=== PATIENT | female | born 1970 | race Caucasian/White ===

== ENCOUNTER 2020-03-17 11:38 | Outpatient (REF) | payer OTHER, SELFPAY ==
[2020-03-17 12:14] LABS: COVID-19 Test Negative (Negative)
== END 2020-03-17 11:39 | disposition home or self-care (01) ==
LOC: HO.LAB 11:38
PROVIDERS: Visit Provider Internal Medicine
DX: Z20.828 Contact with and (suspected) exposure to other viral communicable diseases (principal)
CPT/HCPCS: 87635; C9803

== ENCOUNTER 2020-03-20 08:20 | Outpatient (REF) | payer OTHER, SELFPAY ==
[2020-03-22 05:52] LABS: COVID-19 Test Positive (Negative)
== END 2020-03-20 08:21 | disposition home or self-care (01) ==
LOC: HO.LAB 08:20
PROVIDERS: Visit Provider Internal Medicine
DX: Z20.828 Contact with and (suspected) exposure to other viral communicable diseases (principal)
CPT/HCPCS: 87635; C9803

== ENCOUNTER 2020-04-27 14:51 | Outpatient (REF) | payer OTHER, SELFPAY ==
--- NOTE | 2020-04-27 | XR_ITS ---
EXAMINATION: XR CHEST CLINICAL INFORMATION: Covid 19 COMPARISON: 03/28/2018 TECHNIQUE: 2 views of the chest were obtained. FINDINGS: No significant abnormality is noted involving the heart, lungs, mediastinum, bony thorax or soft tissues. XR/XR chest 2V IMPRESSION: Unremarkable examination.
== END 2020-04-27 14:52 | disposition home or self-care (01) ==
LOC: HO.HMGCX 14:51
PROVIDERS: PCP Internal Medicine; Visit Provider Internal Medicine
DX: U07.1 COVID-19 (principal)
CPT/HCPCS: 71046

== ENCOUNTER 2020-05-17 11:16 | Outpatient (REF) | payer OTHER, SELFPAY ==
[2020-05-17 13:57] LABS: MANUAL DIFF FLAG NO
[2020-05-17 14:00] LABS: Basophils Percent Auto 0.4 % (0-2); Eosinophils Absolute Auto 0.2 X10*3/uL (0.0-0.4); Hematocrit 38.9 % (37-47); Hemoglobin 12.8 g/dl (12.0-16.0); Imm Gran Abs Auto 0.03 X10*3/uL (0.00-0.03); Imm Gran Pct Auto 0.3 % (0.0-0.4); Lymphocytes Absolute Auto 3.4 X10*3/uL (1.2-4.9); Lymphocytes Percent Auto 37.3 % (20-40); Mean Corpuscular HGB Conc 32.9 g/dl (31.0-35.0); Mean Corpuscular Hemoglobin 30.1 pg (27.0-33.0); Mean Corpuscular Volume 91.5 fL (80-98); Mean Platelet Volume 11.2 fL (9.4-12.3); Monocytes Absolute Auto 0.5 X10*3/uL (0.1-1.2); Monocytes Percent Auto 5.9 % (2-11); Neutrophils Absolute Auto 4.9 X10*3/uL (2.0-8.3); Neutrophils Percent Auto 54.1 % (45-73); Platelet Count 311 X10*3/uL (160-400); Red Blood Count 4.25 X10*6/uL (4.20-5.50); Red Cell Distribution Width 14.7 % (11.0-16.0); White Blood Count 9.1 X10*3/uL (4.8-10.8)
[2020-05-17 14:05] LABS: Glucose Urine UA NEG (NEG); Leukocyte Esterase Urine NEG (NEG); Nitrite Urine NEG (NEG); PH 6.5 (5.0-8.0); Specific Gravity - Urine <= 1.005 (1.005-1.025); Urine Blood NEG (NEG); Urine Ketones NEG (NEG); Urine Protein NEG (NEG-TRACE)
[2020-05-17 14:07] LABS: Appearance Urine CLEAR; Color Urine STRAW
[2020-05-17 14:36] LABS: Alanine Aminotransferase 142 U/L (0-31); Alkaline Phosphatase 68 U/L (39-117); Anion Gap 14 (12-20); Aspartate Amino Transferase 114 U/L (5-31); Bilirubin Total 0.5 mg/dL (0.0-1.0); Blood Urea Nitrogen 11 mg/dL (9-16); Carbon Dioxide 30 mmol/L (22-29); Chloride 97 mmol/L (96-108); Cholesterol 176 mg/dL; Estimated Glomerular Filt Rate > 60; Glucose Fasting 192 mg/dL (60-99); HDL Cholesterol 29 mg/dL; LDL Cholesterol Calculated 113 mg/dl; Potassium 3.6 mmol/l (3.3-5.1); Sodium 137 mmol/L (135-145); Total Protein 7.1 g/dL (6.5-8.0); Triglycerides 172 mg/dL
== END 2020-05-17 11:17 | disposition home or self-care (01) ==
LOC: HO.WFDLDS 11:16
PROVIDERS: Visit Provider Internal Medicine
DX: E78.6 Lipoprotein deficiency (principal); I10 Essential (primary) hypertension; Z00.00 Encounter for general adult medical examination without abnormal findings
CPT/HCPCS: 36415; 80053; 80061; 81003; 85025

== ENCOUNTER → 2020-05-28 14:11 | Outpatient (BNVA) | payer OTHER, SELFPAY | PROVIDERS: PCP Internal Medicine; Visit Provider Internal Medicine Pulmonary Disease | DX: Z76.89 Persons encountering health services in other specified circumstances (principal) ==

== ENCOUNTER 2020-06-10 09:01 | Outpatient (REF) | payer OTHER, SELFPAY ==
--- NOTE | 2020-06-10 | US_ITS ---
EXAMINATION: US ABDOMEN COMPLETE CLINICAL INFORMATION: Elevated LFTs. COMPARISON: None TECHNIQUE: Real-time imaging of the abdominal viscera. FINDINGS: PANCREAS: Normal. ABDOMINAL AORTA: The proximal, mid, and distal segments are normal in caliber. INFERIOR VENA CAVA: Visualized portions are normal. LIVER: The liver is normal in size. The liver contour is normal. Parenchymal echogenicity is diffusely increased. No focal hepatic lesion. There is no intrahepatic biliary duct dilatation seen. GALLBLADDER: Normal. The gallbladder is physiologically distended without evidence of stones, sludge, polyps, wall thickening, or pericholecystic fluid. COMMON BILE DUCT: Normal in caliber measuring 0.5 cm in diameter. RIGHT KIDNEY: Normal. No hydronephrosis. No renal calculi or focal parenchymal lesions. The kidney measures 13.7 cm in maximum dimension. LEFT KIDNEY: Normal. No hydronephrosis. No renal calculi or focal parenchymal lesions. The kidney measures 13.1 cm in maximum dimension. SPLEEN: Normal. The spleen measures 9.8 cm in maximum dimension. FREE FLUID: None. US/US abdomen complete IMPRESSION: Hepatic steatosis without focal lesion. The rest of the abdominal ultrasound is unremarkable.
== END 2020-06-10 09:02 | disposition home or self-care (01) ==
LOC: HO.HMGCX 09:01
PROVIDERS: PCP Internal Medicine; Visit Provider Internal Medicine
DX: R74.8 Abnormal levels of other serum enzymes (principal)
CPT/HCPCS: 76700

== ENCOUNTER 2020-06-18 13:52 | Outpatient (REF) | payer OTHER, SELFPAY ==
--- NOTE | 2020-06-18 17:40 | PFT_ITS ---
Forced vital capacity is slightly decreased. HUW11-77 are normal. MVV slightly decreased. Post bronchodilator therapy, there is no significant change. Total lung capacity and residual volume normal. Diffusion capacity normal. CONCLUSION: Normal pulmonary function test. No evidence of obstructive or restrictive pulmonary disorder. Pam Mckinney MD MSB/MODL / [id number]
== END 2020-06-18 13:53 | disposition home or self-care (01) ==
LOC: HO.RESP 13:52
PROVIDERS: PCP Internal Medicine; Visit Provider Internal Medicine Pulmonary Disease
DX: B94.8 Sequelae of other specified infectious and parasitic diseases (principal)
CPT/HCPCS: 94060; 94727; 94729

== ENCOUNTER → 2020-06-30 08:36 | Outpatient (REF) | payer OTHER, SELFPAY ==
--- NOTE | ~2020-06-30 | CT_ITS ---
EXAMINATION: CT CHEST WITHOUT CONTRAST CLINICAL INFORMATION: Shortness of breath COMPARISON: Previous chest x-ray most recent 04/27/2020 TECHNIQUE: Multidetector volumetric CT imaging of the chest was done. Axial MIP volume rendering provided. Sagittal and coronal reformatted images were obtained. This CT examination was performed using dose optimization techniques as appropriate, variously including the following: *Automated exposure control *Adjustment of mA and/or kV according to patient size (this includes techniques or standardized protocols for targeted exams where dose is matched to indication/reason for exam; i.e. extremities or head) *Use of iterative reconstruction technique DLP: 211 mGy-cm FINDINGS: TODDLER NANNY: Unremarkable LUNGS: The lungs are clear. No evidence of a pneumonia is seen. No pulmonary nodule is seen. No evidence of interstitial lung disease, emphysema or bronchiectasis is seen. There is no endobronchial or endotracheal lesion. MEDIASTINUM: There are small mediastinal lymph nodes. No enlarged lymph nodes are seen. The mediastinum is otherwise normal. PLEURA: There is no pleural effusion. No pleural mass or thickening. AXILLA: No chest wall mass or enlarged axillary lymph nodes. UPPER ABDOMEN: The liver is low in attenuation suggestive of fatty infiltration. OSSEOUS STRUCTURES: Mild degenerative changes of the spine. CT/CT chest wo con IMPRESSION: Unremarkable chest CT. Fatty infiltration of the liver.
--- NOTE | 2020-06-30 09:13 | CA_ITS ---
Transthoracic Echocardiogram Patient (Last, First, Middle): Jarett Lees, Gender: Female Date of : 1970 Age: 50 Procedure Date: 06/30/2020 Procedure Type: Transthoracic Echocardiogram Location: OP Height: 157.48 cm Weight: 106.6 kg BSA: 2.05 m2 Heart Rate: bpm BP: 124 / 68 mmHg Tablet Repair: Referring MD: Medhat Sheldon MD Schedule Checker: Mahesh King MD Symptoms: R06.00 - Dyspnea, unspecified Study Quality: Technically Difficult ECG Rhythm: Sinus Conclusions: - 1. Technically difficult study 2. Normal LV systolic function mild LVH with grade 1 diastolic dysfunction 3. Limited evaluation of cardiac valves with normal cardiac valvular Doppler 4. No gross pericardial effusion Findings Left Ventricle Normal left ventricular size and systolic function. There is mildly increased left ventricular wall thickness. The visually estimated ejection fraction is between 60-65%. Spectral Doppler is indicative of an impaired relaxation filling pattern. E/E prime ratio is <8, consistent with normal filling pressures. Evidence suggests grade I (mild) diastolic dysfunction. Right Ventricle Normal right ventricular cavity size and systolic function. Atria Both atria are normal in size. Interatrial shunt cannot be excluded. Aortic Valve The aortic valve was not well visualized. There is no aortic valve stenosis. There is no aortic valve regurgitation. Mitral Valve The mitral valve was not well visualized. There is no mitral valve regurgitation. There is no mitral valve stenosis. Pulmonic Valve The pulmonic valve was not well visualized. Tricuspid Valve Likely normal tricuspid valve structure and function. Tricuspid regurgitation envelope is inadequate for calculation of right ventricular systolic pressure. Great Vessels All visible segments of the aorta are normal in size. The pulmonary artery was not well visualized. Venous The inferior vena cava was not well visualized. Pericardium/Pleural There is no evidence of pericardial effusion. Prior Study Comparison No previous study in the last 5 years for comparison Measurements 2D Linear Measurements IVSd: 1.26 0.6-0.9/0.6-1.0 cm LVIDd: 3.63 3.9-5.3/4.2-5.9 cm LVIDd Index: 1.77 2.4-3.2/2.2-3.1 cm/m2 LVIDs: 2.27 2.0-3.6 cm LVPWd: 1.25 0.7-1.1 cm Ao Root: 3.10 2.1-3.5 cm LA Diam: 3.80 2.7-3.8/3.0-4.0 cm LAIDs Index: 1.85 1.5-2.3 cm/m2 LV Mass: 190.99 67-162/88-224 g LV Mass Index: 93.17 43-95/49-115 g/m2 LVOT Diam: 2.20 3.0+(-)1.3 cm Mitral Valve MV Pk E: 0.54 MV PK A: 0.88 MV Decel Time: 130.00 E/A: 0.60 E'Lateral: 4.06 E'Medial: 7.25 E/E' Med: 7.50 E/E' Lat: 13.40 PHT: 38.00 MVA PHT: 5.79 Decel Harper: 4.17 Aortic Valve AoV Pk Dedrick: 1.26 AoV Mn Dedrick: 0.79 AoV VTI: 0.21 AoV Pk Grad: 6.00 Aov Mn Grad: 3.00 RICCI Cont.VTI: 3.14 LVOT LVOT Pk Dedrick: 1.07 LVOT Mn Dedrick: 0.76 LVOT VTI: 0.17 LVOT Pk Grad: 5.00 LVOT Mn Grad: 3.00 LVOT Diam: 2.20 LVOT Area: 3.80 Diastolic Function MV Pk E: 0.54 MV Pk A: 0.88 E/A: 0.60 E'Medial: 7.25 E/E' Med: 7.50 E' Laterial: 4.06 E/E' Lat: 13.40 Tricuspid Valve TR Pk Dedrick: 1.61 TR Pk Grad: 10.00 Great Vessels Aorta Ao Root-2D: 3.10 2.0-3.7 cm Ao Asc: 3.00 2.1-3.4 cm Pulmonary Valve PV Pk Dedrick: 1.04 Peak PV Grad: 4.00 Updated in Other Vendor System with Status of Final Mahesh King MD electronically signed on 06/30/2020 2:27:26 PM with status of Final
== END ==
LOC: HO.SL 08:36
PROVIDERS: Visit Provider Internal Medicine Pulmonary Disease
DX: G47.33 Obstructive sleep apnea (adult) (pediatric) (principal); B94.8 Sequelae of other specified infectious and parasitic diseases; R06.00 Dyspnea, unspecified
CPT/HCPCS: 20551; 71250; 93306; 95806; J1020

== ENCOUNTER 2020-07-02 10:12 | Outpatient (REF) | payer OTHER, SELFPAY ==
[2020-07-02 14:15] LABS: Alanine Aminotransferase 107 U/L (0-31); Albumin Level 3.8 g/dL (3.5-5.0); Alkaline Phosphatase 92 U/L (39-117); Aspartate Amino Transferase 84 U/L (5-31); Bilirubin Direct 0.2 mg/dL (0.0-0.5); Bilirubin Total 0.5 mg/dL (0.0-1.0); C Reactive Protein 2.07 mg/dL (< or = 0.50); Rheumatoid Factor < 15.0 IU/mL (<15.0); Total Protein 6.9 g/dL (6.5-8.0)
[2020-07-02 14:32] LABS: Erythrocyte Sedimentation Rate 34 MM/HR (0-20)
[2020-07-02 14:37] LABS: Thyroid Stimulating Hormone 1.93 uIU/mL (0.32-4.0)
[2020-07-02 15:28] LABS: Estimated Average Glucose 223 mg/dL; Hemoglobin A1c % 9.4 %
[2020-07-04 21:46] LABS: Cyclic Citrullinated Peptide <16 UNITS
[2020-07-05 03:36] LABS: HBS Num1 22.99 mIU/mL (0-7.99); HBc Num1 0.13 S/CO (0.00-0.79); HBsAGNum1 0.22 S/CO (0.00-0.99); Hepatitis B Core Antibody Nonreactive (Nonreactive); Hepatitis B Surface Antigen Negative (Negative); ~Hepatitis B Surface Antibody REACTIVE (Nonreactive); ~Hepatitis C Antibody Nonreactive (Nonreactive)
[2020-07-05 09:26] LABS: Anti Nuclear Antibody Screen NEGATIVE (NEGATIVE)
[2020-07-08 07:45] LABS: Hepatitis A Antibody IgM 0.14 Index (0-0.79); ~Hepatitis A Antibody IgM Nonreactive (Nonreactive)
== END 2020-07-02 10:13 | disposition home or self-care (01) ==
LOC: HO.WFDLDS 10:12
PROVIDERS: Visit Provider Internal Medicine
DX: R53.83 Other fatigue (principal); R53.81 Other malaise
CPT/HCPCS: 36415; 80076; 82550; 83036; 84443; 85652; 86038; 86039; 86140; 86200; 86431; 86704; 86706; 86709; 86803; 87340

== ENCOUNTER → 2020-07-15 09:30 | Outpatient (BNVA) | payer OTHER, SELFPAY | PROVIDERS: PCP Internal Medicine; Visit Provider Internal Medicine Pulmonary Disease ==

== ENCOUNTER 2020-08-23 10:00 | Outpatient (RCR) | payer OTHER, SELFPAY ==
--- NOTE | 2020-08-23 11:11 | MHC.OT.DC ---
[address] [phone] F: [phone] Occupational Therapy Discharge Note Provider: Josh Bernabe PA-C Diagnosis: Left medial epicondylitis Date of Evaluation: 07/12/20 Date of Discharge: 08/23/20 Treatments to Date: 9 Cancellations to Date: 0 No Shows to Date: 0 Discharge Status: Recommend MD Follow-up Discharge Summary: Jarett has progressed w/ less pain in left dorsal forearm and focal pain at left medial epicondyle. She is Ind w/ HEP, but reporting more hypersensitivity and now more pain and tenderness radiating into upper arm. No significant change in symptoms over the past few visits, still with low narcotics agent (28lb) and reporting 52% functional limitation through QuickDASH. Pt reporting she has started Prednisone taper. She has some edema and tightness through upper arm into upper back. I have encouraged general progression of light cardiovascular activity and may benefit from anti-inflammatory nutrition focus, but would also benefit from referral back to PCP and possibly rheumatology to continue to assess persistant pain, hypersensitivity and edema. Electronically Signed By: Neris Velasquez OTR/L Please Sign and return to therapist, thank you for your referral.
--- NOTE | 2020-08-23 11:12 | MHC.OT.OEV ---
[address] [phone] F: [phone] Occupational Therapy Evaluation Diagnosis: Left medial epicondylitis Date of Onset: 04/13/20 Attending Provider: Josh Bernabe PA-C Prescribed Treatment: Eval and Treat MD Follow Up Appointment: History of Current Condition: Pt w/ hx of left dorsal forearm pain and medial elbow pain over the past four months, referred to [facility] and now s/p cortisone injection 07/02/20. Significant Medical History: Covid 19 (04/02) DM Shortness of Breath Precautions/Contraindications: Patient Goals: Reduce pain Hand Dominance: Right Observations: QuickDASH Score: 50 Prior Level of Function and Occupation Self Care, Employment, Leisure: Ind w/ daily activities, works full-time at [employer] [place] in [employer], enjoys playing w/ grandchildren and horseback riding Living Situation, Family and/or Social Support: w/ grown children and 6 yo grandchildren, lives family Current Level of Function and Occupation Self Care, Employment, Leisure: Out of work since Covid 19 due to onset of side affects Sleep: Not sleeping well (on Prednisone - states it is affecting sleep) Driving: Ind Vision: Balance: Pain Assessment Pain Score: 8 Pain Scale Used: Numeric (0 - 10) Pain Location and Description: 2/10 resting pain in left dorsal forearm at mobile WAD 8/10 w/ forceful use, supination and/or elbow flexion, tender to palpate Aggravating Factors: Lifting, pulling w/ arm extended Alleviating Factors: Prednisone helps Cortisone injection helps briefly (10 days) Skin and Soft Tissue Assessment Skin and Soft Tissue: Comments: Nerve assessment Ulnar Nerve: WNL Median Nerve: WNL Radial Nerve: WNL Comments: Sensory Assessment Temperature: Light Touch: Proprioception: Vibration: Comments: Denies sensory changes Edema Assessment Upper Extremity: WNL Lower Extremity: Comments: Dexterity Assessment Dexterity: WNL Comments: Special Tests Comments: AROM(PROM) Strength Cervical Cervical Flexion: Cervical Extension: Cervical Lateral Flexion: Cervical Rotation: Comments: WNL Shoulder Flexion: Extension: Abduction: Internal Rotation: External Rotation: Comments: WNL Flexion: Extension: Abduction: Internal Rotation: External Rotation: Comments: Elbow Flexion: Extension: Pronation: Supination: Comments: WNL Flexion: Extension: Pronation: Supination: Comments: Wrist Flexion: Extension: Ulnar Deviation: Radial Deviation: Comments: WNL Flexion: Extension: Ulnar Deviation: Radial Deviation: Comments: Thumb Thumb CMC Flexion: Thumb MCP Flexion: Thumb IP Flexion: Radial Abduction: Palmar Abduction: [place] (Kapandji 0-10): Comments: WNL Digits Index MCP: PIP: DIP: Long MCP: PIP: DIP: Ring MCP: PIP: DIP: Small MCP: PIP: DIP: Comments: WNL Gross Grasp: R 42 L 5 Lateral Pinch: Two-Point Pinch: Three-Jaw Ryan: Comments: Patient Education Primary Language: Burkinan Motel Operator Required: Current Knowledge: Understands information with skills for self-management Teaching Method: Demonstration Handouts Verbal Education Needs Identified on Evaluation: ADL's Disease Information Equipment Use Exercise Pain Safety How did patient/family demonstrate learning? Patient demonstrates Patient verbalizes Barriers to Learning: None Readiness for Learning: Accepting Who was educated? Patient Comments: HEP Joint protection Plan of Care Assessment: Jarett presents about four months of persistent pain in left medial epicondyle and left dorsal forearm. Very brief relief w/ cortisone injection last month. She has been out of work since March 2020 due to Covid and lasting side affects, but still has difficulty w/ some daily activities, specifically involving pulling, pushing, forearm rotation and gripping. Since she is home, she has been doing majority or cooking and cleaning, also assisting with her granddaughter's home schooling. On assessment, she has tenderness to palpate mobile wad and medial epicondyle. 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 She will benefit from cont'd therapy services to maximize pain relief w/ focus on strengthing, joint protection, activity modification and progression of strengthening as appropriate. STG Duration: 2 Short Term Goals: Ind w/ nighttime orthosis wear (met) Ind w/ HEP (met) Pain free at rest (met) Good follow through w/ joint protection techniques (met) Left gross grasp >15lb (met) LTG Duration: 6 Director Of Business Services Goals: Pt to progress to eccentric exercises w/ yellow band, tolerating 3 sets of 10 <3/10 arm pain w/ moderate daily activities Left gross grasp >35lb QuickDASH score <25 pts Frequency and Duration: The patient will be seen 2x/wk for 6 weeks Treatment Plan: Therapeutic Exercise Therapeutic Activity Home Exercise Program Splinting Neuro Re-ed Edema Control ADL Training NMES Iontophoresis MHP Cold Packs Soft Tissue Mobilization Kinesiotaping Electronically Signed By: Neris Velasquez OTR/L Please sign and return to therapist, Thank you for your referral.
--- NOTE | 2020-08-23 11:15 | MHC.OT.DC ---
[address] [phone] F: [phone] Occupational Therapy Discharge Note Provider: Josh Bernabe PA-C Diagnosis: Left medial epicondylitis Date of Evaluation: 07/12/20 Date of Discharge: 08/23/20 Treatments to Date: 9 Cancellations to Date: 0 No Shows to Date: 0 Discharge Status: Recommend MD Follow-up Discharge Summary: Jarett has progressed w/ less pain in left dorsal forearm and focal pain at left medial epicondyle. She is Ind w/ HEP, but reporting more hypersensitivity and now more pain and tenderness radiating into upper arm. 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 Pt reporting she has started Prednisone taper. She has some edema and tightness through upper arm into upper back. I have encouraged general progression of light cardiovascular activity and may benefit from anti-inflammatory nutrition focus, but would also benefit from referral back to PCP and possibly rheumatology to continue to assess persistant pain, hypersensitivity and edema. Electronically Signed By: Neris Velasquez OTR/L Please Sign and return to therapist, thank you for your referral.
== END 2020-08-24 07:29 | disposition other institution (70) ==
LOC: HO.OT 10:00
PROVIDERS: PCP Internal Medicine; Visit Provider Physician Assistant
DX: M77.02 Medial epicondylitis, left elbow (principal)
CPT/HCPCS: 29125; 97033; 97035; 97110; 97112; 97140; 97165; 97760

== ENCOUNTER 2020-09-06 13:41 | Emergency (ER) | payer OTHER, SELFPAY ==
--- NOTE | ~2020-09-06 | US_ITS ---
EXAMINATION: US VENOUS WITH DOPPLER UPPER EXTREMITY, LEFT CLINICAL INFORMATION: Left arm pain COMPARISON: None TECHNIQUE: Ultrasound of the upper extremity is performed using compression sonography and color and pulse Doppler flow with assessment of augmentation of flow. There is also imaging and Doppler assessment of the jugular and subclavian veins. Spectral analysis with color-flow imaging is performed. FINDINGS: Respiratory variation, normal compression, and augmented flow are noted throughout the upper extremity including the axillary, brachial, cubital, and radial and ulnar veins. There is normal flow in the internal jugular and subclavian veins. There is nonocclusive thrombus seen in the basilic vein in the mid and upper arm suggestive of superficial thrombophlebitis.. US/US venous duplex UE LT IMPRESSION: Superficial thrombophlebitis in the left basilic vein in the mid and upper arm. No evidence of DVT.
--- NOTE | 2020-09-06 13:50 | ECG_ITS ---
Test Reason : LEFT ARM PAIN Blood Pressure : / mmHG Vent. Rate : 106 BPM Atrial Rate : 106 BPM P-R Int : 136 ms QRS Dur : 094 ms QT Int : 354 ms P-R-T Axes : 027 -04 014 degrees QTc Int : 470 ms Sinus tachycardia Inferior infarct , age undetermined Abnormal ECG When compared with ECG of 13-SEP-2009 15:49, Vent. rate has increased BY 36 BPM Inferior infarct is now Present Referred By: Generic ED Physician Electronically Signed By:CARSON DEVLIN MD
[2020-09-06 14:17] VITALS: BP 132/70; PULSE 100; RESP 20; TEMP 37.3; O2SAT 98; BMI 42.0
--- NOTE | 2020-09-06 15:05 | ED_ITS ---
HPI - Extremity Problem General Chief complaint: Extremity Injury, Upper Stated complaint: left arm pain Time Seen by Provider: 09/06/20 15:05 History of Present Illness HPI Narrative: Patient with history of recent COVID infection complains of left arm pain with no injury, the pain radiates into her fingers, there is no fever no chills no neck pain no weakness no loss of sensation no fever no chills no chest pain no shortness of breath, no neck pain Related Data Home Medications Medication Instructions Recorded Confirmed albuterol sulfate 90 mcg/actuation INHALATION 05/28/20 aerosol inhaler melatonin 10 mg capsule 10 mg PO BEDTIME PRN 05/28/20 valsartan 80 1 tab PO DAILY 05/28/20 mg-hydrochlorothiazide 12.5 mg tablet dapagliflozin 10 mg tablet 10 mg PO DAILY 07/15/20 metformin 500 mg tablet 500 mg PO BID 07/15/20 prednisone 50 mg tablet 50 mg PO DAILY 07/15/20 Previous Rx's Medication Instructions Recorded umeclidinium 62.5 mcg-vilanterol 1 inh INHALATION DAILY 30 Days #1 05/28/20 25 mcg/actuation powdr for ea inhalation rivaroxaban [Xarelto DVT-PE Treat See Rx Instructions .ROUTE 09/06/20 30d Start] .COMPLEX 30 Days #51 ea Allergies Allergy/AdvReac Type Severity Reaction Status Date / Time ibuprofen [Ibuprofen] Allergy Unknown CANKER Verified 09/06/20 14:17 SORES oxycodone Allergy Unknown Unknown Verified 09/06/20 14:17 Review of Systems Review of Systems: Positive for left arm pain negatives are no dizziness no weakness no fainting no chest pain no neck pain no numbness or weakness no back pain no changes to bowel or bladder no rash no chest pain no shortness of breath no leg pain no leg swelling no calf pain no rash PMFSH Past Medical History Medical History (Updated 09/06/20 @ 18:08 by LUCIA Castro) COVID-19 Diabetes Hypertension Social History Social History (Updated 06/30/20 @ 12:38 by Roxann Mancini CMA) Smoking Status: Never smoker Advance Directives: No Advance Directives Information Provided: Yes Advance Directives on File: No Current occupation: Right Handed Physical Exam Vital Signs: Vital Signs: Last Vital Signs Temp 99.1 F 09/06/20 14:17 Pulse 100 09/06/20 14:17 Resp 20 09/06/20 14:17 BP 132/70 09/06/20 14:17 Pulse Ox 98 09/06/20 14:17 Body Mass Index 42.0 General appearance is no acute distress, and cooperative exam head is normocephalic atraumatic Neck is supple and nontender The chest is clear to auscultation with full symmetric equal breath sounds The heart no murmur Abdomen soft nontender Extremities is full range of motion x4 The left upper arm has medial upper arm tenderness there is no palpable cord there is no redness no warmth no wound, the left arm has 2+ radial pulse that is symmetrical with the right arm, cap refill is normal, sensation and motor are intact distal, all joints have full range of motion Skin no rashes Course Course Course Narrative: Ultrasound showed superficial thrombophlebitis of the basilic vein in mid and upper arm, this was discussed with Dr. Aggarwal his said usually we would start treatment as is a risk that this will connect to the deeper vein system and put patient at risk for a PE so plan is to start Xarelto Patient's most recent chemistries showed normal liver and kidney function in July 02 of this year CBC done today showed normal platelets PT INR was pending and case was signed out to physician executive administrative assistant soo to follow this result and discharge the patient MDM - Extremity (Nontraumatic) Lab Data Result diagrams: 09/06/20 17:28 Labs: Lab Results 09/06/20 Range/Units 17:28 WBC 11.2 H (4.8-10.8) X10*3/uL RBC 4.42 (4.20-5.50) X10*6/uL Hgb 13.6 (12.0-16.0) g/dl Hct 41.6 (37-47) % MCV 94.1 (80-98) fL MCH 30.8 (27.0-33.0) pg MCHC 32.7 (31.0-35.0) g/dl RDW 14.0 (11.0-16.0) % Plt Count 340 (160-400) X10*3/uL MPV 11.0 (9.4-12.3) fL Immature Gran % (Auto) 0.6 H (0.0-0.4) % Neut % (Auto) 61.9 (45-73) % Lymph % (Auto) 29.1 (20-40) % Candler % (Auto) 6.8 (2-11) % Eos % (Auto) 1.0 (0-4) % Baso % (Auto) 0.6 (0-2) % Lymph # (Auto) 3.3 (1.2-4.9) X10*3/uL Candler # (Auto) 0.8 (0.1-1.2) X10*3/uL Eos # (Auto) 0.1 (0.0-0.4) X10*3/uL Baso # (Auto) 0.1 (0.0-0.2) X10*3/uL Abs Immat Gran (auto) 0.07 H (0.00-0.03) X10*3/uL Absolute Neuts (auto) 6.9 (2.0-8.3) X10*3/uL Absolute Nucleated RBC 0.000 (0.0-0.012) X10*3/uL Nucleated RBC % (auto) 0.0 (0.0-0.2) /100WBC Discharge Plan Discharge Clinical Impression: Phlebitis and thrombophlebitis of superficial veins of upper extremities Qualifiers: Laterality: left Qualified Code(s): I80.8 - Phlebitis and thrombophlebitis of other sites Patient Disposition: Home, Self-Care Additional Instructions: Ultrasound showed superficial thrombophlebitis of the left basilic vein in the mid and upper arm We started anticoagulation as there is a chance that the clot can moved to the deeper veins and progressed to the lungs This is controversial and we advise close follow-up with a embedded linux developer to determine duration of treatment You should see primary care doctor as soon as possible to get a referral Return any time for bleeding headache lots of bruising any worse condition or any concern Prescriptions: New Xarelto DVT-PE Treat 30d Start 15 mg (42)- 20 mg (9) tablets,dose pack See Rx Instructions .ROUTE .COMPLEX 30 Days Qty: 51 RF: 0 No Action Anoro Ellipta 62.5-25 mcg/actuation blister with device 1 inh inhalation DAILY 30 Days Qty: 1 RF: 3
[2020-09-06 17:32] LABS: MANUAL DIFF FLAG NO
[2020-09-06 17:33] LABS: Basophils Absolute Auto 0.1 X10*3/uL (0.0-0.2); Basophils Percent Auto 0.6 % (0-2); Eosinophils Absolute Auto 0.1 X10*3/uL (0.0-0.4); Hematocrit 41.6 % (37-47); Hemoglobin 13.6 g/dl (12.0-16.0); Imm Gran Abs Auto 0.07 X10*3/uL (0.00-0.03); Imm Gran Pct Auto 0.6 % (0.0-0.4); Lymphocytes Absolute Auto 3.3 X10*3/uL (1.2-4.9); Lymphocytes Percent Auto 29.1 % (20-40); Mean Corpuscular HGB Conc 32.7 g/dl (31.0-35.0); Mean Corpuscular Hemoglobin 30.8 pg (27.0-33.0); Mean Corpuscular Volume 94.1 fL (80-98); Monocytes Absolute Auto 0.8 X10*3/uL (0.1-1.2); Monocytes Percent Auto 6.8 % (2-11); Neutrophils Absolute Auto 6.9 X10*3/uL (2.0-8.3); Neutrophils Percent Auto 61.9 % (45-73); Platelet Count 340 X10*3/uL (160-400); Red Blood Count 4.42 X10*6/uL (4.20-5.50); White Blood Count 11.2 X10*3/uL (4.8-10.8)
[2020-09-06 17:51] LABS: Prothrombin Time 12.3 SEC (10.8-13.0)
[2020-09-06] MEDS: Rivaroxaban 15 MG TABLET PO (19:05)
[2020-09-06 19:08] VITALS: BP 124/71; PULSE 105; RESP 17; O2SAT 96
== END 2020-09-06 19:15 | disposition home or self-care (01) ==
PROVIDERS: Physician Assistant Medical; Emergency Provider Emergency Medicine; PCP Internal Medicine
DX: I80.8 Phlebitis and thrombophlebitis of other sites (principal); M79.622 Pain in left upper arm; E11.9 Type 2 diabetes mellitus without complications; I10 Essential (primary) hypertension; Z86.16 Personal history of COVID-19; Z79.84 Long term (current) use of oral hypoglycemic drugs; Z79.899 Other long term (current) drug therapy
CPT/HCPCS: 36415; 85025; 85610; 93005; 93971; 99284

== ENCOUNTER 2020-09-10 10:42 | Outpatient (REF) | payer OTHER, SELFPAY ==
[2020-09-10 13:27] LABS: Prothrombin Time 23.5 SEC (10.8-13.0)
[2020-09-10 13:30] LABS: Partial Thromboplastin Time 49.1 SEC (24.1-38.0)
[2020-09-13 17:36] LABS: Homocysteine 8.3 umol/L (<10.4)
[2020-09-15 13:51] LABS: Factor V Leiden NEGATIVE
[2020-09-15 15:56] LABS: Cardiolipin IgG Ab <14 GPL; Cardiolipin IgM Ab 15 MPL
== END 2020-09-10 10:43 | disposition home or self-care (01) ==
LOC: HO.WFDLDS 10:42
PROVIDERS: PCP Internal Medicine; Visit Provider Family Medicine
DX: I82.622 Acute embolism and thrombosis of deep veins of left upper extremity (principal)
CPT/HCPCS: 36415; 81241; 83090; 85302; 85303; 85305; 85306; 85610; 85730; 86147

== ENCOUNTER → 2020-09-15 09:59 | Outpatient (BNVA) | payer OTHER, SELFPAY | PROVIDERS: PCP Internal Medicine; Visit Provider Internal Medicine Pulmonary Disease | DX: R07.89 Other chest pain (principal); R00.0 Tachycardia, unspecified; R94.31 Abnormal electrocardiogram [ECG] [EKG]; R06.00 Dyspnea, unspecified; B94.8 Sequelae of other specified infectious and parasitic diseases; G47.33 Obstructive sleep apnea (adult) (pediatric) | CPT/HCPCS: 93005 ==

== ENCOUNTER → 2020-10-07 08:25 | Outpatient (REF) | payer OTHER, SELFPAY ==
--- NOTE | ~2020-10-07 | NM_ITS ---
Lexiscan Myocardial perfusion study Indication: Chest discomfort, abnormal EKG, assess for coronary disease and ischemia Technique: The patient was brought in for a Lexiscan perfusion study on 10/07/2020 and was injected 0.4 mg of Lexiscan intravenously. Within a minute of this injection 35 mCi of sestamibi was given intravenously. Images were obtained using the SPECT gamma camera interlaced with the gating device. Images were obtained in supine position. Resting perfusion study was performed on 10/08/2020. Patient was administered 35 mCi of sestamibi intravenously at rest. Images were then obtained in supine position. Total DLP 130mGy-cm. Images were processed with the software and compared side to side in short axis, horizontal long axis and vertical long axis views. Findings: Raw acquisition reviewed. The stress perfusion study showed no significant perfusion abnormality. Both uncorrected as well as CT attenuation corrected images were reviewed. The gated study shows normal LV systolic function with calculated LVEF of 66%. LV cavity is normal in size. The gated study shows normal wall thickening and contraction of segments. Resting study shows no significant perfusion abnormality. Gating at rest reveals normal wall motion with ejection fraction at 58%. The findings are consistent with no reversible or fixed perfusion abnormality. NM/NM johny perf SPECT rest & str Impression: 1. Myocardial perfusion imaging study shows normal myocardial perfusion. 2. Gated LVEF is 66% during stress and 58% during rest. 3. Transient ischemic dilatation not present. EKG component of the test reported separately.
--- NOTE | 2020-10-07 08:28 | CA_ITS ---
Acquisition Time: 2020-10-07 08:26:49 Total Exercise Time: 00:02:00 Test Indications: Abnormal ECG Medications: SEE CHART Protocol: LEXISCAN Max HR: 127 BPM 74% of Pred: 170 BPM Max BP: 122/074 mmHG Max Work Load: 1.0 METS Pharmacological stress test with Lexiscan injection, while sitting and kicking her legs, without anginal symptoms, without arrythmia, with normotensive reponse to injection, with nondiagnostic EKG for ischemia. Nuclear images pending. Test reviewed with Dr Vega. Referred By: Willa Daly Overread By: WILLA DALY
== END ==
LOC: HO.CARD 08:25
PROVIDERS: Visit Provider Internal Medicine
DX: R06.00 Dyspnea, unspecified (principal); R94.31 Abnormal electrocardiogram [ECG] [EKG]
CPT/HCPCS: 78452; 93016; 93017; 93018; A9500; J0280; J2785

== ENCOUNTER 2021-06-06 11:06 | Outpatient (REF) | payer BC, SELFPAY ==
[2021-06-06 11:09] LABS: MANUAL DIFF FLAG NO
[2021-06-06 11:24] LABS: Basophils Absolute Auto 0.1 X10*3/uL (0.0-0.2); Basophils Percent Auto 0.4 % (0-2); Eosinophils Absolute Auto 0.2 X10*3/uL (0.0-0.4); Eosinophils Percent Auto 1.3 % (0-4); Hematocrit 39.8 % (37.0-47.0); Hemoglobin 12.7 g/dl (12.0-16.0); Imm Gran Abs Auto 0.04 X10*3/uL (0.00-0.03); Imm Gran Pct Auto 0.3 % (0.0-0.4); Lymphocytes Percent Auto 41.3 % (20-40); Mean Corpuscular HGB Conc 31.9 g/dl (31.0-35.0); Mean Corpuscular Hemoglobin 28.9 pg (27.0-33.0); Mean Corpuscular Volume 90.5 fL (80.0-98.0); Mean Platelet Volume 11.3 fL (9.4-12.3); Monocytes Absolute Auto 0.7 X10*3/uL (0.1-1.2); Monocytes Percent Auto 5.9 % (2-11); Neutrophils Absolute Auto 6.1 x10*3/uL (2.0-8.3); Neutrophils Percent Auto 50.8 % (45-73); Platelet Count 308 X10*3/uL (160-400)
[2021-06-06 11:34] LABS: Estimated Average Glucose 160 mg/dL; Hemoglobin A1c % 7.2 %
[2021-06-06 12:28] LABS: Alanine Aminotransferase 40 U/L (0-31); Albumin Level 3.9 g/dL (3.5-5.0); Alkaline Phosphatase 66 U/L (39-117); Anion Gap 15 (12-20); Aspartate Amino Transferase 32 U/L (5-31); Bilirubin Total 0.4 mg/dL (0.0-1.0); Blood Urea Nitrogen 15 mg/dL (9-16); Calcium 9.7 mg/dL (8.4-10.2); Carbon Dioxide 30 mmol/L (22-29); Chloride 99 mmol/L (96-108); Cholesterol 156 mg/dL; Estimated Glomerular Filt Rate > 60; Glucose Fasting 140 mg/dL (60-99); HDL Cholesterol 32 mg/dL; LDL Cholesterol Calculated 91 mg/dl; Potassium 4.1 mmol/L (3.3-5.1); Sodium 140 mmol/L (135-145); Total Protein 7.3 g/dL (6.5-8.0); Triglycerides 165 mg/dL
[2021-06-06 12:30] LABS: Reflex LDLD? No
== END 2021-06-06 11:07 | disposition home or self-care (01) ==
LOC: HO.LNP 11:06
PROVIDERS: PCP Internal Medicine; Visit Provider Internal Medicine
DX: Z00.00 Encounter for general adult medical examination without abnormal findings (principal); R09.89 Other specified symptoms and signs involving the circulatory and respiratory systems; E11.9 Type 2 diabetes mellitus without complications; K75.81 Nonalcoholic steatohepatitis (NASH)
CPT/HCPCS: 80053; 80061; 83036; 85025

== ENCOUNTER 2022-06-06 10:52 | Outpatient (REF) | payer BC, SELFPAY ==
[2022-06-06 11:01] LABS: MANUAL DIFF FLAG NO
[2022-06-06 11:19] LABS: Basophils Absolute Auto 0.1 X10*3/uL (0.0-0.2); Basophils Percent Auto 0.5 % (0-2); Eosinophils Absolute Auto 0.3 X10*3/uL (0.0-0.4); Hematocrit 40.9 % (37.0-47.0); Hemoglobin 13.4 g/dl (12.0-16.0); Imm Gran Abs Auto 0.03 X10*3/uL (0.00-0.03); Imm Gran Pct Auto 0.3 % (0.0-0.4); Lymphocytes Percent Auto 37.3 % (20-40); Mean Corpuscular HGB Conc 32.8 g/dl (31.0-35.0); Mean Corpuscular Hemoglobin 28.2 pg (27.0-33.0); Mean Corpuscular Volume 85.9 fL (80.0-98.0); Monocytes Absolute Auto 0.7 X10*3/uL (0.1-1.2); Monocytes Percent Auto 6.3 % (2-11); Neutrophils Absolute Auto 5.7 x10*3/uL (2.0-8.3); Neutrophils Percent Auto 52.6 % (45-73); Platelet Count 310 X10*3/uL (160-400); Red Blood Count 4.76 X10*6/uL (4.20-5.50); White Blood Count 10.7 X10*3/uL (4.8-10.8)
[2022-06-06 11:37] LABS: Estimated Average Glucose 131 mg/dL; Hemoglobin A1C 149.4124 umol/L; Hemoglobin A1c % 6.2 %
[2022-06-06 11:48] LABS: Alanine Aminotransferase 28 U/L (0-31); Albumin Level 3.8 g/dL (3.5-5.0); Alkaline Phosphatase 56 U/L (39-117); Anion Gap 13 (12-20); Aspartate Amino Transferase 25 U/L (5-31); Bilirubin Total 0.6 mg/dL (0.0-1.0); Blood Urea Nitrogen 16 mg/dL (9-16); Calcium 9.2 mg/dL (8.4-10.2); Carbon Dioxide 29 mmol/L (22-29); Chloride 101 mmol/L (96-108); Cholesterol 156 mg/dL; Estimated Glomerular Filt Rate > 60; Glucose Fasting 113 mg/dL (60-99); HDL Cholesterol 33 mg/dL; LDL Cholesterol Calculated 96 mg/dl; Potassium 4.1 mmol/L (3.3-5.1); Sodium 139 mmol/L (135-145); Total Protein 6.8 g/dL (6.5-8.0); Triglycerides 135 mg/dL
== END 2022-06-06 10:53 | disposition home or self-care (01) ==
LOC: HO.LNP 10:52
PROVIDERS: Visit Provider Internal Medicine
DX: Z00.00 Encounter for general adult medical examination without abnormal findings (principal); R09.89 Other specified symptoms and signs involving the circulatory and respiratory systems; E78.6 Lipoprotein deficiency; E11.9 Type 2 diabetes mellitus without complications; K75.81 Nonalcoholic steatohepatitis (NASH)
CPT/HCPCS: 80053; 80061; 83036; 85025

== ENCOUNTER 2022-07-06 11:36 | Outpatient (REF) | payer BC, SELFPAY ==
[2022-07-06 12:36] LABS: Appearance Urine Clear; Color Urine Yellow; Glucose Urine UA >=1000 mg/dL (Negative); Leukocyte Esterase Urine Negative (Negative); Nitrite Urine Negative (Negative); Specific Gravity - Urine >= 1.030 (1.005-1.025); UMIC TRIGGER UACC YES; Urine Blood Negative (Negative); Urine Ketones Negative (Negative); Urine Protein Negative (Neg-Trace)
[2022-07-06 12:55] LABS: Bacteria Urine None Seen (None Seen); Hyaline Casts Urine 0-2 /LPF (0-2); RBC Urine 0-2 /HPF (0-2); Squamous Epithelial Cell Urine 0-2 /HPF (0-2); WBC Urine 0-5 /HPF (0-5)
[2022-07-06 13:49] LABS: Creatinine Urine 173.27 mg/dL
== END 2022-07-06 11:37 | disposition home or self-care (01) ==
LOC: HO.LNP 11:36
PROVIDERS: Visit Provider Internal Medicine
DX: E11.9 Type 2 diabetes mellitus without complications (principal); R09.89 Other specified symptoms and signs involving the circulatory and respiratory systems
CPT/HCPCS: 81001; 82043

== ENCOUNTER 2023-07-06 09:07 | Outpatient (REF) | payer BC, SELFPAY ==
[2023-07-06 09:29] LABS: MANUAL DIFF FLAG NO
[2023-07-06 09:54] LABS: Basophils Absolute Auto 0.1 X10*3/uL (0.0-0.2); Basophils Percent Auto 0.5 % (0-2); Eosinophils Absolute Auto 0.2 X10*3/uL (0.0-0.4); Eosinophils Percent Auto 2.4 % (0-4); Hematocrit 39.8 % (37.0-47.0); Hemoglobin 13.1 g/dl (12.0-16.0); Imm Gran Abs Auto 0.04 X10*3/uL (0.00-0.03); Imm Gran Pct Auto 0.4 % (0.0-0.4); Lymphocytes Absolute Auto 4.5 X10*3/uL (1.2-4.9); Lymphocytes Percent Auto 46.9 % (20-40); Mean Corpuscular HGB Conc 32.9 g/dl (31.0-35.0); Mean Corpuscular Hemoglobin 29.6 pg (27.0-33.0); Mean Corpuscular Volume 89.8 fL (80.0-98.0); Mean Platelet Volume 10.5 fL (9.4-12.3); Monocytes Absolute Auto 0.6 X10*3/uL (0.1-1.2); Monocytes Percent Auto 6.5 % (2-11); Neutrophils Absolute Auto 4.2 x10*3/uL (2.0-8.3); Neutrophils Percent Auto 43.3 % (45-73); Platelet Count 310 X10*3/uL (160-400); Red Blood Count 4.43 X10*6/uL (4.20-5.50); Red Cell Distribution Width 15.3 % (11.0-16.0); White Blood Count 9.6 X10*3/uL (4.8-10.8)
[2023-07-06 10:18] LABS: Alanine Aminotransferase 43 U/L (0-31); Albumin Level 3.7 g/dL (3.5-5.0); Alkaline Phosphatase 55 U/L (39-117); Anion Gap 14 (12-20); Aspartate Amino Transferase 30 U/L (5-31); Bilirubin Total 0.4 mg/dL (0.0-1.0); Blood Urea Nitrogen 18 mg/dL (9-16); Calcium 9.4 mg/dL (8.4-10.2); Carbon Dioxide 27 mmol/L (22-29); Chloride 105 mmol/L (96-108); Cholesterol 171 mg/dL (<200); Estimated Glomerular Filt Rate > 60; Glucose Fasting 141 mg/dL (60-99); HDL Cholesterol 31 mg/dL (>40); LDL Cholesterol Calculated 91 mg/dL (<100); Potassium 4.2 mmol/L (3.3-5.1); Sodium 142 mmol/L (135-145); Total Protein 7.5 g/dL (6.5-8.0); Triglycerides 245 mg/dL (<150)
[2023-07-06 10:42] LABS: Estimated Average Glucose 148 mg/dL; Hemoglobin A1c % 6.8 % (<6.0)
== END 2023-07-06 09:08 | disposition home or self-care (01) ==
LOC: HO.LAB 09:07
PROVIDERS: PCP Internal Medicine; Visit Provider Internal Medicine
DX: Z00.00 Encounter for general adult medical examination without abnormal findings (principal); R09.89 Other specified symptoms and signs involving the circulatory and respiratory systems; E11.9 Type 2 diabetes mellitus without complications; E78.6 Lipoprotein deficiency
CPT/HCPCS: 36415; 80053; 80061; 83036; 85025

== ENCOUNTER 2023-07-09 11:37 | Outpatient (REF) | payer BC, SELFPAY ==
[2023-07-09 11:59] LABS: Appearance Urine Clear; Color Urine Yellow; Glucose Urine UA >=1000 mg/dL (Negative); Leukocyte Esterase Urine Negative (Negative); Nitrite Urine Negative (Negative); PH 5.5 (5.0-9.0); Specific Gravity - Urine >= 1.030 (1.005-1.025); UMIC TRIGGER UACC YES; Urine Blood Negative (Negative); Urine Ketones Trace mg/dL (Negative); Urine Protein Negative (Neg-Trace)
[2023-07-09 12:03] LABS: Bacteria Urine None Seen (None Seen); Hyaline Casts Urine 0-2 /LPF (0-2); RBC Urine 0-2 /HPF (0-2); Squamous Epithelial Cell Urine 0-2 /HPF (0-2); WBC Urine 0-5 /HPF (0-5)
[2023-07-09 13:14] LABS: Creatinine Urine 159.19 mg/dL; Microalbum/Creatinine Ratio Ur 7.5 ug/mg cr (<30)
== END 2023-07-09 11:38 | disposition home or self-care (01) ==
LOC: HO.LNP 11:37
PROVIDERS: Visit Provider Internal Medicine
DX: Z00.00 Encounter for general adult medical examination without abnormal findings (principal); E11.9 Type 2 diabetes mellitus without complications; I10 Essential (primary) hypertension
CPT/HCPCS: 81001; 82043; 82570

== ENCOUNTER 2023-08-07 10:49 | Outpatient (REF) | payer BC, SELFPAY ==
[2023-08-07 10:51] LABS: MANUAL DIFF FLAG NO
[2023-08-07 11:33] LABS: Basophils Percent Auto 0.5 % (0-2); Eosinophils Absolute Auto 0.2 X10*3/uL (0.0-0.4); Eosinophils Percent Auto 2.7 % (0-4); Hematocrit 40.2 % (37.0-47.0); Hemoglobin 13.1 g/dl (12.0-16.0); Imm Gran Abs Auto 0.01 X10*3/uL (0.00-0.03); Imm Gran Pct Auto 0.1 % (0.0-0.4); Lymphocytes Absolute Auto 4.2 X10*3/uL (1.2-4.9); Lymphocytes Percent Auto 49.8 % (20-40); Mean Corpuscular HGB Conc 32.6 g/dl (31.0-35.0); Mean Corpuscular Hemoglobin 29.4 pg (27.0-33.0); Mean Corpuscular Volume 90.3 fL (80.0-98.0); Mean Platelet Volume 11.2 fL (9.4-12.3); Monocytes Absolute Auto 0.6 X10*3/uL (0.1-1.2); Monocytes Percent Auto 7.3 % (2-11); Neutrophils Absolute Auto 3.3 x10*3/uL (2.0-8.3); Neutrophils Percent Auto 39.6 % (45-73); Platelet Count 281 X10*3/uL (160-400); Red Blood Count 4.45 X10*6/uL (4.20-5.50); Red Cell Distribution Width 16.2 % (11.0-16.0); White Blood Count 8.5 X10*3/uL (4.8-10.8)
== END 2023-08-07 10:50 | disposition home or self-care (01) ==
LOC: HO.LNP 10:49
PROVIDERS: Visit Provider Internal Medicine
DX: D72.820 Lymphocytosis (symptomatic) (principal)
CPT/HCPCS: 85025

== ENCOUNTER 2024-07-03 10:34 | Outpatient (REF) | payer BC, SELFPAY ==
[2024-07-03 10:37] LABS: MANUAL DIFF FLAG NO
[2024-07-03 10:57] LABS: Basophils Absolute Auto 0.1 X10*3/uL (0.0-0.2); Basophils Percent Auto 0.8 % (0-2); Eosinophils Absolute Auto 0.3 X10*3/uL (0.0-0.4); Eosinophils Percent Auto 3.2 % (0-4); Hematocrit 38.7 % (37.0-47.0); Hemoglobin 12.7 g/dl (12.0-16.0); Imm Gran Abs Auto 0.04 X10*3/uL (0.00-0.03); Imm Gran Pct Auto 0.5 % (0.0-0.4); Lymphocytes Absolute Auto 3.4 X10*3/uL (1.2-4.9); Lymphocytes Percent Auto 41.6 % (20-40); Mean Corpuscular HGB Conc 32.8 g/dl (31.0-35.0); Mean Corpuscular Hemoglobin 29.7 pg (27.0-33.0); Mean Corpuscular Volume 90.4 fL (80.0-98.0); Mean Platelet Volume 11.7 fL (9.4-12.3); Monocytes Absolute Auto 0.7 X10*3/uL (0.1-1.2); Monocytes Percent Auto 8.1 % (2-11); Neutrophils Absolute Auto 3.8 x10*3/uL (2.0-8.3); Neutrophils Percent Auto 45.8 % (45-73); Platelet Count 233 X10*3/uL (160-400); Red Blood Count 4.28 X10*6/uL (4.20-5.50); Red Cell Distribution Width 15.5 % (11.0-16.0); White Blood Count 8.3 X10*3/uL (4.8-10.8)
[2024-07-03 11:04] LABS: Estimated Average Glucose 157 mg/dL; Hemoglobin A1C 178.9925 umol/L; Hemoglobin A1c % 7.1 % (<6.0); Total Hemoglobin (HGBA1C) 3323.7389 umol/L
[2024-07-03 11:17] LABS: Alanine Aminotransferase 121 U/L (0-31); Albumin Level 3.9 g/dL (3.5-5.0); Anion Gap 14 (12-20); Aspartate Amino Transferase 102 U/L (5-31); Bilirubin Total 0.2 mg/dL (0.0-1.0); Blood Urea Nitrogen 14 mg/dL (9-16); Calcium 9.3 mg/dL (8.4-10.2); Carbon Dioxide 30 mmol/L (22-29); Chloride 102 mmol/L (96-108); Cholesterol 183 mg/dL (<200); Estimated Glomerular Filt Rate > 60; Glucose Fasting 149 mg/dL (60-99); HDL Cholesterol 39 mg/dL (>40); LDL Cholesterol Calculated 118 mg/dL (<100); Potassium 4.2 mmol/L (3.3-5.1); Sodium 142 mmol/L (135-145); Total Protein 8.1 g/dL (6.5-8.0); Triglycerides 133 mg/dL (<150)
[2024-07-03 11:20] LABS: Alkaline Phosphatase 77 U/L (39-117)
--- OUTSIDE RECORDS SUMMARY | 2024-07-03 11:42 | XMS_ITS ---
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 Name Role Phone Chevy Scanlon Primary Care Provider [phone] Results Component Value Reference Range Notes Complete Blood Count Auto Di ff (Not yet reviewed by provider) Interpretation: Performing Lab:[facility], [address] [place] [phone] Notes/Report: White Blood Count 8.3 4.8-10.8 X10*3/uL Red Blood Count 4.28 4.20-5.50 X10*6/uL Hemoglobin 12.7 12.0-16.0 g/dl Hematocrit 38.7 37.0-47.0 % Mean Corpuscular Volume 90.4 80.0-98.0 fL Mean Corpuscular Hemoglobin 29.7 27.0-33.0 pg Mean Corpuscular HGB Conc 32.8 31.0-35.0 g/dl Red Cell Distribution Width 15.5 11.0-16.0 % Platelet Count 233 160-400 X10*3/uL Mean Platelet Volume 11.7 9.4-12.3 fL Neutrophils Percent Auto 45.8 45-73 % Imm Gran Pct Auto 0.5 0.0-0.4 % Lymphocytes Percent Auto 41.6 20-40 % Monocytes Percent Auto 8.1 2-11 % Eosinophils Percent Auto 3.2 0-4 % Basophils Percent Auto 0.8 0-2 % NRBC Pct Auto 0.0 0.0-0.2 /100WBC Neutrophils Absolute Auto 3.8 2.0-8.3 x10*3/u L Imm Gran Abs Auto 0.04 0.00-0.03 X10*3/uL Lymphocytes Absolute Auto 3.4 1.2-4.9 X10*3/u L Monocytes Absolute Auto 0.7 0.1-1.2 X10*3/uL Eosinophils Absolute Auto 0.3 0.0-0.4 X10*3/u L Basophils Absolute Auto 0.1 0.0-0.2 X10*3/uL NRBC Abs Auto 0.000 0.0-0.012 X10*3/uL Comprehensive Linn. Panel Fa (Not yet reviewed by provider) Interpretation: Performing Lab:[facility], [address] [place] [phone] Notes/Report: Sodium 142 135-145 mmol/L Potassium 4.2 3.3-5.1 mmol/L Chloride 102 96-108 mmol/L Carbon Dioxide 30 22-29 mmol/L Anion Gap 14 12-20 Blood Urea Nitrogen 14 9-16 mg/dL Creatinine 0.75 0.5-1.4 mg/dL Estimated Glomerular Filt Rate > 60 Chronic Kidney Disease: Estimated GFR < 60 mL/min/1.73m2 Severe Kidney Disease: Estimated GFR < 15 mL/min/1.73m2 Glucose Fasting 149 60-99 mg/dL A fasting glucose of 126 mg/dl or greater on more than one occasion is considered diagnostic of diabetes. Calcium 9.3 8.4-10.2 mg/dL Bilirubin Total 0.2 0.0-1.0 mg/dL Aspartate Amino Transferase 102 5-31 U/L Alanine Aminotransferase 121 0-31 U/L Total Protein 8.1 6.5-8.0 g/dL Albumin Level 3.9 3.5-5.0 g/dL Alkaline Phosphatase 77 39-117 U/L Lipid Panel (Not yet reviewe d by provider) Interpretation: Performing Lab:[address] [phone] Notes/Report: Triglycerides 133 <150 mg/dL Desirable Triglyceride: less than 150 mg/dL Borderline High Triglyceride 150-199 mg/dL High Triglyceride: 200-499 mg/dL Very High Triglyceride: greater than or equal to 5OO mg/dL Cholesterol 183 <200 mg/dL Desirable Cholesterol: less than 200 mg/dL Borderline High Cholesterol: 200-239 mg/dL High Cholesterol: greater than 239 mg/dL LDL Cholesterol Calculated 118 <100 mg/dL Desirable LDL: less than 100 mg/dL Near Optimal/Above Optimal LDL: 110-129 mg/dL Borderline High LDL: 130-159 mg/dL High LDL: 160-189 mg/dL Very High LDL: greater than or equal to 190 mg/dL HDL Cholesterol 39 >40 mg/dL Desirable HDL: greater than 40 mg/dL Note: This HDL assay may give artificially low results in patients with liver disease. Hemoglobin A1c (Not yet revi ewed by provider) Interpretation: Performing Lab:[facility], [address] [place] [phone] Notes/Report: Hemoglobin A1c % 7.1 <6.0 % Hemoglobin A1C Reference Range Adults: 4.8 - 6.0 % Non diabetic: < 6.0 % Goal: < 7.0 % Additional Action Suggested: > 8.0 % Note: Hemoglobin A1c results are invalid for patients with abnormal amounts of HbF. Blood transfusions may impact the HbA1c concentration in the patient sample. Estimated Average Glucose 157 eAG = Estimated average glucose which is %A1C expressed as average glucose, using the formula of the [id number] Average Glucose study (ADAG), Diabetes Care, Vol.31,#8, Dec. 2007 REASON FOR VISIT FASTING LABS Encounters Encounter Location Date Provider Diagnosis Chevy Scanlon MD [address] [place] [address] [address] [place], [place] [id number] 07/03/2024 Chevy Scanlon Blood tests for routine general physical examination Z00.00 ; Labile hypertension R09.89 ; Low HDL (under 40) E78.6 ; Essential hypertension I10 ; Type 2 diabetes mellitus without complication, without long-term current use of insulin E11.9 and Lymphocytosis D72.820 Assessments Encounter Date Diagnosis (ICD Code) Assessment Notes Treatment Notes Treatment Clinical Notes Section Notes 07/03/2024 Blood tests for routine general physical examination (ICD-10 - Z00.00) 07/03/2024 Labile hypertension (ICD-10 - R09.89) 07/03/2024 Low HDL (under 40) (ICD-10 - E78.6) 07/03/2024 Essential hypertension (ICD-10 - I10) 07/03/2024 Type 2 diabetes mellitus without complication, without long-term current use of insulin (ICD-10 - E11.9) 07/03/2024 Lymphocytosis (ICD-10 - D72.820) Plan Of Treatment Pending Test Test Name Order Date Complete Blood Count Auto Diff 5 Comprehensive Linn. Panel Fast Lipid Panel 07/03/2024 Microalbumin, Random 07/03/2024 Hemoglobin A1c 07/03/2024 UA ClnCatch+Micro w/rflx Cult 07/03/2024 Next Appt Details Provider Name:Chevy Shrestha ier, 07/10/2024 08:30:00 AM, [address], [address], [place], [place], [id number], Progress Notes * DARIA SALCEDOHDOB:1970 (54 yo F)Acc No.[id number]:07/03/2024 Progress Note Patient:?JUSTIN SALCEDO Provider:?Chevy Scanlon MD :1970???Age:54 Y???Sex:Female D ate:07/03/2024 [id number] Subjective: * Chief Complaints: * ???1. FASTING LABS. * Medical History:? Objective: * Vitals:? Assessment: * Assessment: 1.?Blood tests for routine g eneral physical examination - Z00.00 (Primary)???2.?Labile hypertension - R09.89???3.?Low HDL (under 40) - E78.6???4.?Essential hypertension - I10???5.?Type 2 diabetes mellitus without complication, without long-term current use of insulin - E11.9???6.?Lymphocytosis - D72.820??? Plan: * Treatment: 2.?Labile hypertension?LAB: Complete Blood Count Auto Diff (Collection Date & Time - 07/03/2024 07:15 AM) ?LAB: Comprehensive Linn. Panel Fast (Collection Date & Time - 07/03/2024 07:15 AM) ?LAB: Lipid Panel (Collection Date & Time - 07/03/2024 07:15 AM) ?LAB: Microalbumin, Random ?LAB: Hemoglobin A1c (Collection Date & Time - 07/03/2024 07:15 AM) ?LAB: UA ClnCatch+Micro w/rflx Cult 3.?Low HDL (under 40)?LAB: Complete Blood Count Auto Diff (Collection Date & Time - 07/03/2024 07:15 AM) ?LAB: Comprehensive Linn. Panel Fast (Collection Date & Time - 07/03/2024 07:15 AM) ?LAB: Lipid Panel (Collection Date & Time - 07/03/2024 07:15 AM) ?LAB: Microalbumin, Random ?LAB: Hemoglobin A1c (Collection Date & Time 07/03/2024 07:15 AM) ?LAB: UA ClnCatch+Micro w/rflx Cult 4.?Essential hypertension?LAB: Complete Blood Count Auto Diff (Collection Date & Time - 07/03/2024 07:15 AM) ?LAB: Comprehensive Linn. Panel Fast (Collection Date & Time 07/03/2024 07:15 AM) ?LAB: Lipid Panel (Collection Date & Time 07/03/2024 07:15 AM) ?LAB: Microalbumin, Random ?LAB: Hemoglobin A1c (Collection Date & Time 07/03/2024 07:15 AM) ?LAB: UA ClnCatch+Micro w/rflx Cult 5.?Type 2 diabetes mellitus without complication, without long-term current use of insulin?LAB: Complete Blood Count Auto Diff (Collection Date & Time - 07/03/2024 07:15 AM) ?LAB: Comprehensive Linn. Panel Fast (Collection Date & Time 07/03/2024 07:15 AM) ?LAB: Lipid Panel (Collection Date & Time - 07/03/2024 07:15 AM) ?LAB: Microalbumin, Random ?LAB: Hemoglobin A1c (Collection Date & Time - 07/03/2024 07:15 AM) ?LAB: UA ClnCatch+Micro w/rflx Cult 6.?Lymphocytosis?LAB: Complete Blood Count Auto Diff (Collection Date & Time - 07/03/2024 07:15 AM) ?LAB: Comprehensive Linn. Panel Fast (Collection Date & Time - 07/03/2024 07:15 AM) ?LAB: Lipid Panel (Collection Date & Time - 07/03/2024 07:15 AM) ?LAB: Microalbumin, Random ?LAB: Hemoglobin A1c (Collection Date & Time - 07/03/2024 07:15 AM) ?LAB: UA ClnCatch+Micro w/rflx Cult * * The named appointment provid er may or may not be the originator of this progress note, and it is not deemed complete until electronically signed by the appointment provider. Sign off status: Pending * Provider:?Chevy Scanlon MD Date:?0 07/03/2024 Generated for Connie bailey/Derrick/Mnegitting on:?07/03/2024 11:42 AM EST
--- OUTSIDE RECORDS SUMMARY | 2024-07-03 11:43 | XMS_ITS ---
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 Orally twice a day for 90 days Active carBAMazepine 200 MG 1 tablet Orally Twi ce a day for 30 day(s) 06/10/2024 Active Valsartan-hydroCHLOROthiaz matthias 80-12.5 MG TAKE 1 TABLET BY MOUTH DAILY Orally Once a day for 90 days Active valACYclovir HCl 1 GM 1 tablet Orally 3 times a day for 7 days 06/13/2024 Active Levocetirizine Dihydrochloride 5 mg Take 1 tablet (5 mg total) by mouth 1 (one) time each day in the evening. Orally Once a day for 90 days Active Farxiga 10 mg Take 1 tablet (10 mg total) by mouth 1 (one) time each day. Orally Once a day for 90 days Active Meclizine HCl 12.5 MG 2 tablets as neede d Orally Once a day for 30 day(s) Not-Taking Temazepam 15 MG 1 capsule at bedtime as needed Orally Once a day Not-Taking traZODone HCl 50 mg Take 2 tablets (100 mg total) by mouth at night if needed for sleep. for 30 Active Valtrex 1 GM 1 tablet Orally thre e times per day for 7 days 06/17/2020 Not-Taking Triamcinolone Acetonide 0.1 % 1 application Externally Twice a day for 30 days 06/03/2020 Not-Taking Plaquenil 200 MG as directed Orally Not-Taking Anoro Ellipta 62.5-25 MCG/INH 1 puff Inhalation Once a day Not-Taking traMADol HCl 50 MG 1 tablet as needed Orally twice a day for 10 days 06/13/2024 Active Vital Signs Height 63 in 06/13/2024 Weight 225 lbs 06/13/2024 BMI 39.85 kg/m2 06/13/2024 weight is 225 at home BP not taken today Encounters Encounter Location Date Provider Diagnosis Chevy Scanlon MD [address] [place] [address] [place] [phone] 06/13/2024 Chevy Scanlon Herpes zoster withou t complication B02.9 Assessments Encounter Date Diagnosis (ICD Code) Assessment Notes Treatment Notes Treatment Clinical Notes Section Notes 06/13/2024 Herpes zoster without complication (ICD-10 - B02.9) patient verbalized understanding of medication and directions for use Plan Of Treatment Medication Medication Name Sig Start Date Stop Date Notes valACYclovir HCl 1 GM 1 tablet Orally 3 times a day for 7 days 06/13/2024 Treatment Notes Assessment Notes Herpes zoster without complication patie nt verbalized understanding of medication and directions for use Next Appt Details Provider Name:Chevy otoole, 07/10/2024 08:30:00 AM, [address] [place] [address], [address], [place], [place], [phone], Progress Notes * DARIA SALCEDOHDOB:1970 (54 yo F)Acc No.[id number]:06/13/2024 Patient:?DENISSE, JAKYWINBridget Provider:?Chevy Scanlon MD :1970???Age:54 Y???Sex:Female D ate:06/13/2024 Address: [address] [place] [id number] Subjective: * Chief Complaints: * ???Shingles on her stomach n oticed it half hour agoBarbie [phone] * HPI: ???Symptom(s):?Telehealth?Location of provider rendering services:?[address], [address],?Location of patient:?at address listed in demographics for today's visit,?Patient identification confirmed using:?Name, ,?Telehealth method:?Video conference where patient is visible to the provider of care,?Consent:?Patient verbally consented to treatment, Patient verbally consented to billing insurance company, Patient informed of any privacy concerns related to method of visit,?Total time spend talking with patient (minutes)?20.?patient is a 54 yo female video telehealth feels like shingles on abdomen. * ROS:?General/Constitutional:?Denies?Chills.?Denies?Fatigue.?Denies?Fever.?Denies?Headache.?ENT:?Patient denies?decreased sense of smell, any loss of taste, sore throat.?Denies?Sore throat.?Respiratory:?Denies?Cough.?Denies?Shortness of breath at rest.?Denies?Shortness of breath with exertion.?Gastrointestinal:?Denies?Diarrhea.?Denies?Nausea.?Musculoskeletal:?Patient denies?muscle aches.?Peripheral Vascular:?Patient denies?red and blue toes.? * Medical History:? * Surgical History:? * Hospitalization/Major Diagno stic Procedure:? * Medications:?TakingtraZODone HCl 50 mg Tablet Take 2 tablets (100 mg total) by mouth at night if needed for sleep. Farxiga 10 mg Tablet Take 1 tablet (10 mg total) by mouth 1 (one) time each day. Orally Once a day metFORMIN HCl 1000 MG Tablet Take 1 tablet (1,000 mg total) by mouth 2 (two) times per day with meals. Orally twice a day Valsartan-hydroCHLOROthiazide 80-12.5 MG Tablet TAKE 1 TABLET BY MOUTH DAILY Orally Once a day Levocetirizine Dihydrochloride 5 mg Tablet Take 1 tablet (5 mg total) by mouth 1 (one) time each day in the evening. Orally Once a day carBAMazepine 200 MG Tablet 1 tablet Orally Twice a day traMADol HCl 50 MG Tablet 1 tablet as needed Orally twice a day Taking traZODone HCl 50 mg Tablet Take 2 tablets (100 mg total) by mouth at night if needed for sleep. Taking Farxiga 10 mg Tablet Take 1 tablet (10 mg total) by mouth 1 (one) time each day. Orally Once a day Taking metFORMIN HCl 1000 MG Tablet Take 1 tablet (1,000 mg total) by mouth 2 (two) times per day with meals. Orally twice a day Taking Valsartan-hydroCHLOROthiazide 80-12.5 MG Tablet TAKE 1 TABLET BY MOUTH DAILY Orally Once a day Taking Levocetirizine Dihydrochloride 5 mg Tablet Take 1 tablet (5 mg total) by mouth 1 (one) time each day in the evening. Orally Once a day Taking carBAMazepine 200 MG Tablet 1 tablet Orally Twice a day Taking traMADol HCl 50 MG Tablet 1 tablet as needed Orally twice a day Not-Taking/PRNPlaquenil 200 MG Tablet as directed Orally Anoro Ellipta 62.5-25 MCG/INH Aerosol Powder Breath Activated 1 puff Inhalation Once a day Triamcinolone Acetonide 0.1 % Cream 1 application Externally Twice a day Valtrex 1 GM Tablet 1 tablet Orally three times per day Meclizine HCl 12.5 MG Tablet 2 tablets as needed Orally Once a day Temazepam 15 MG Capsule 1 capsule at bedtime as needed Orally Once a day Not-Taking/PRN Plaquenil 200 MG Tablet as directed Orally Not-Taking/PRN Anoro Ellipta 62.5-25 MCG/INH Aerosol Powder Breath Activated 1 puff Inhalation Once a day Not-Taking/PRN Triamcinolone Acetonide 0.1 % Cream 1 application Externally Twice a day Not-Taking/PRN Valtrex 1 GM Tablet 1 tablet Orally three times per day Not-Taking/PRN Meclizine HCl 12.5 MG Tablet 2 tablets as needed Orally Once a day Not-Taking/PRN Temazepam 15 MG Capsule 1 capsule at bedtime as needed Orally Once a day DiscontinuedHYDROcodone-Acetaminophen 5-325 MG Tablet 1 tablet as needed Orally every 6 hrs , Notes to Pharmacist: Partial Fill upon Patient RequestMedication List reviewed and reconciled with the patientDiscontinued HYDROcodone-Acetaminophen 5-325 MG Tablet 1 tablet as needed Orally every 6 hrs , Notes to Pharmacist: Partial Fill upon Patient RequestMedication List reviewed and reconciled with the patient * Allergies:?Ibuprofen: CANKER SORESHYDROcodone: whole body itchyes[Allergies Verified] Objective: * Vitals:?Ht: 63, Wt: 225, BMI :39.85, Wt-k.06. weight is 225 at home? BP? not taken today. * Examination: ???General Examination: ?GENERAL APPEARANCE:?alert, well hydrated, in no distress.? Assessment: * Assessment: 1.?Herpes zoster without com plication - B02.9 (Primary)??? Plan: * Treatment: * Procedure Codes:? * * Sign off status: Completed true * Provider:?Chevy Scanlon MD Date:?0 06/13/2024 Generated for Connie bailey/Derrick/Mengitting on:?07/03/2024 11:42 AM EST History and Physical Notes * HPI (History of Present Illness) Category Sub-Category Detail Notes Category Not es Symptom(s) Telehealth Location of [facility] rendering services:: [address], [address] patient is a 54 yo female video telehealth feels like shingles on abdomen Location of patient:: at address listed in demographics for today's visit Patient identification confirmed using:: Name, Telehealth method:: Video co nference where patient is visible to the provider of care Consent:: Patient verbally c onsented to treatment, Patient verbally consented to billing insurance company, Patient informed of any privacy concerns related to method of visit Total time spend talking with patient (m inutes): 20 Examination Category Sub-Category Detail Notes Category Not es General Examination GENERAL APPEARANCE: alert, w ell hydrated, in no distress
--- OUTSIDE RECORDS SUMMARY | 2024-07-03 11:43 | XMS_ITS ---
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 Orally Once a day for 90 days Active metFORMIN HCl 1000 MG Take 1 tablet (1,0 00 mg total) by mouth 2 (two) times per day with meals. Orally twice a day for 90 days Active Valsartan-hydroCHLOROthiaz matthias 80-12.5 MG TAKE 1 TABLET BY MOUTH DAILY Orally Once a day for 90 days Active Levocetirizine Dihydrochloride 5 mg Take 1 tablet (5 mg total) by mouth 1 (one) time each day in the evening. Orally Once a day for 90 days Active carBAMazepine 200 MG 1 tablet Orally Twi ce a day for 30 day(s) 06/10/2024 Active traZODone HCl 50 mg Take 2 tablets (100 mg total) by mouth at night if needed for sleep. for 30 Active Valtrex 1 GM 1 tablet Orally thre e times per day for 7 days 06/17/2020 Not-Taking Meclizine HCl 12.5 MG 2 tablets as neede d Orally Once a day for 30 day(s) Not-Taking Temazepam 15 MG 1 capsule at bedtime as needed Orally Once a day Not-Taking Triamcinolone Acetonide 0.1 % 1 application Externally Twice a day for 30 days 06/03/2020 Not-Taking traMADol HCl 50 MG 1 tablet as needed Orally twice a day for 10 days 06/13/2024 Active valACYclovir HCl 1 GM 1 tablet Orally 3 times a day for 7 days 06/13/2024 Active Plaquenil 200 MG as directed Orally Not-Taking Anoro Ellipta 62.5-25 MCG/INH 1 puff Inhalation Once a day Not-Taking Vital Signs Blood pressure systolic 118 mm Hg 06/23/19 25 Blood pressure diastolic 84 mm Hg 025 Height 63 in 06/23/2024 Weight 231 lbs 06/23/2024 BMI 40.92 kg/m2 06/23/2024 weight is up 6 pounds since 06-13-24 Encounters Encounter Location Date Provider Diagnosis Chevy Scanlon MD [address] [place], [place] [phone] 06/23/2024 Chevy Scanlon Lymphadenopathy R59. 1 ; Trigeminal neuralgia G50.0 and Type 2 diabetes mellitus without complication, without long-term current use of insulin E11.9 Assessments Encounter Date Diagnosis (ICD Code) Assessment Notes Treatment Notes Treatment Clinical Notes Section Notes 06/23/2024 Lymphadenopathy (ICD-10 - R59.1) will check in one month 06/23/2024 Trigeminal neuralgia (ICD-10 - G50.0) doing better 06/23/2024 Type 2 diabetes mellitus without complication, without long-term current use of insulin (ICD-10 - E11.9) was not able to afford farxiga Plan Of Treatment Treatment Notes Assessment Notes Lymphadenopathy will check in [facility] Trigeminal neuralgia doing better Type 2 diabetes mellitus wit hout complication, without long-term current use of insulin was not able to afford farxiga Next Appt Details Provider Name:Chevy otoole, 07/10/2024 08:30:00 AM, [address], [address], [place], [place], [id number], Progress Notes * DARIA SALCEDOHDOB:1970 (54 yo F)Acc No.[id number]:06/23/2024 Patient:?JUSTIN SALCEDO Provider:?Chevy Scanlon MD :1970???Age:54 Y???Sex:Female D ate:06/23/2024 Address: [address], [place], [id number] Subjective: * Chief Complaints: * ???1 week * HPI: ???Symptom(s):? patient is a 54 yo female here for one week follow up visit. * ROS:?General/Constitutional:?Denies?Chills.?Denies?Fatigue.?Denies?Fever.?Denies?Headache.?ENT:?Patient denies?decreased sense of smell, any [...] tablet as needed Orally twice a day valACYclovir HCl 1 GM Tablet 1 tablet Orally 3 times a day Taking traZODone HCl 50 mg [...] as needed Orally twice a day Taking valACYclovir HCl 1 GM Tablet 1 tablet Orally 3 times a day Not-Taking/PRNPlaquenil 200 MG Tablet as [...] bedtime as needed Orally Once a day Medication List reviewed and reconciled with the patientNot-Taking/PRN Plaquenil 200 MG Tablet as directed Orally [...] bedtime as needed Orally Once a day Medication List reviewed and reconciled with the patient * Allergies:?Ibuprofen: CANKER SORESHYDROcodone: whole body itchyes[Allergies Verified] Objective: * Vitals:?Ht: 63, Wt: 231, BMI :40.92, BP:118/84, Wt-k.78. weight is up 6 pounds since 06-13-24. * Examination: ???General Examination: ?GENERAL APPEARANCE:?alert, well hydrated, in no distress.?HEAD:?normocephalic.?LYMPH NODES:?no cervical adenopathy anteriorly but has a new one inch node on posterior occiput.? Assessment: * Assessment: 1.?Lymphadenopathy - R59.1 ( Primary)???2.?Trigeminal neuralgia - G50.0???3.?Type 2 diabetes mellitus without complication, without long-term current use of insulin - E11.9??? Plan: * Treatment: 2.?Trigeminal neuralgia? Notes: doing better?? 3.?Type 2 diabetes mellitus without complication, without long-term current use of insulin? Notes: was not able to afford BEKIZ?? * Procedure Codes:? * * Sign off status: Completed true * Provider:?Chevy Scanlon MD Date:?0 06/23/2024 Generated for Connie bailey/Derrick/Mengitting on:?07/03/2024 11:43 AM EST History and Physical Notes * HPI (History of Present Illness) Category Sub-Category Detail Notes Category Not es Symptom(s) patient is a 54 yo female here for one week follow up visit. Examination Category Sub-Category Detail Notes Category Not es General Examination GENERAL APPEARANCE: alert, w ell hydrated, in no distress HEAD: normocephalic LYMPH NODES: no cervical adenopat hy anteriorly but has a new one inch node on posterior occiput
== END 2024-07-03 10:35 | disposition home or self-care (01) ==
LOC: HO.LNP 10:34
PROVIDERS: Visit Provider Internal Medicine
DX: Z00.00 Encounter for general adult medical examination without abnormal findings (principal); R09.89 Other specified symptoms and signs involving the circulatory and respiratory systems; E78.6 Lipoprotein deficiency; I10 Essential (primary) hypertension; E11.9 Type 2 diabetes mellitus without complications; D72.820 Lymphocytosis (symptomatic)
CPT/HCPCS: 80053; 80061; 83036; 85025

== ENCOUNTER 2024-07-10 08:30 | Outpatient (REF) | payer BC, SELFPAY ==
[2024-07-10 11:26] LABS: Appearance Urine Clear; Color Urine Yellow; Glucose Urine UA 250 mg/dL (Negative); Leukocyte Esterase Urine Trace (Negative); Nitrite Urine Negative (Negative); PH 5.5 (5.0-9.0); Specific Gravity - Urine 1.025 (1.005-1.025); UMIC TRIGGER UACC YES; Urine Blood Negative (Negative); Urine Ketones Negative (Negative); Urine Protein Negative (Neg-Trace)
[2024-07-10 11:29] LABS: Creatinine Urine 176.71 mg/dL
[2024-07-10 11:31] LABS: Bacteria Urine None Seen (None Seen); Hyaline Casts Urine 0-2 /LPF (0-2); RBC Urine 0-2 /HPF (0-2); UACC Culture Trigger YES
--- OUTSIDE RECORDS SUMMARY | 2024-07-10 12:39 | XMS_ITS ---
Author Organization Chevy Scanlon MD Address [address] [place], [place] [id number] Care Team Providers Care Import Clerk Name Role Phone Chevy Scanlon Primary Care Provider Allergies Allergen (clinical drug ingredient) Drug/Non Drug Allergy documented on EMR Reaction Allergy Type Onset Date Status hydrocodone HYDROcodone whole body itch Drug Allergy Active ibuprofen Ibuprofen CANKER SORES Drug Allergy Acti ve Results Component Value Reference Range Notes Microalbumin, Random (Not ye t reviewed by provider) Interpretation: Performing Lab:[facility], [address] [place] [phone] Notes/Report: Creatinine Urine 176.71 Microalbumin Urine 23.0 Microalbum/Creatinine Ratio Ur 13.0 <30 ug/mg cr Albumin/Creatinine Ratio Reference Ranges: Normal: < 30 ug/mg creatinine Microalbuminuria: 30 - 300 ug/mg creatinine Clinical Albuminuria: > 300 ug/mg creatinine UA ClnCatch+Micro w/rflx Cul t (Not yet reviewed by provider) Interpretation: Performing Lab:[facility], [address] [place] [phone] Notes/Report: [id number] Urine, Clean Catch Color Urine Yellow Appearance Urine Clear PH 5.5 5.0-9.0 Glucose Urine UA 250 Negative mg/dL Urine Blood Negative Negative Specific [place] - Urine 1.025 1.005-1.025 Urine Protein Negative Neg-Trace mg/dL Urine Ketones Negative Negative mg/dL Nitrite Urine Negative Negative Leukocyte Esterase Urine Trace Negative RBC Urine 0-2 0-2 /HPF WBC Urine 11-20 0-5 /HPF Squamous Epithelial Cell Urine 3-5 0-2 /HPF Bacteria Urine None Seen None Seen Hyaline Casts Urine 0-2 0-2 /LPF REASON FOR VISIT ANNUAL EXAM, [facility] Medications Medication SIG (Take, Route, Frequency, Duration) Notes Start Date End Date Status Meclizine HCl 12.5 MG 2 tablets as neede d Orally Once a day for 30 day(s) Not-Taking Temazepam 15 MG 1 capsule at bedtime as needed Orally Once a day Not-Taking Triamcinolone Acetonide 0.1 % 1 application Externally Twice a day for 30 days 06/03/2020 Not-Taking Valtrex 1 GM 1 tablet Orally thre e times per day for 7 days 06/17/2020 Not-Taking carBAMazepine 200 MG 1 tablet Orally Twi ce a day for 30 days 06/10/2024 Active Plaquenil 200 MG as directed Orally Not-Taking Anoro Ellipta 62.5-25 MCG/INH 1 puff Inhalation Once a day Not-Taking valACYclovir HCl 1 GM 1 tablet Orally 3 times a day for 7 days 06/13/2024 Active traMADol HCl 50 MG 1 tablet as needed Orally twice a day for 10 days 06/13/2024 Active Levocetirizine Dihydrochloride 5 mg Take 1 tablet (5 mg total) by mouth 1 (one) time each day in the evening. Orally Once a day for 90 days Active Ozempic (0.25 or 0.5 MG/DOSE) 2 MG/3ML 0.25 mg Subcutaneous weekly for 30 days 07/10/2024 Active metFORMIN HCl 1000 MG Take 1 tablet (1,0 00 mg total) by mouth 2 (two) times per day with meals. Orally twice a day for 90 days Active traZODone HCl 50 mg Take 2 tablets (100 mg total) by mouth at night if needed for sleep. for 30 Active Valsartan-hydroCHLOROthiaz matthias 80-12.5 MG TAKE 1 TABLET BY MOUTH DAILY Orally Once a day for 90 days Active Social History Tobacco Use: Social History Observation Description Date Details (start date - stop date) Never Smoker NA - NA Tobacco Use/Smoking Question Answer Notes Patient is a nonsmoker Additional Findings: Tobacco Non-User Cu rrent non-smoker, currently using no form of tobacco Alcohol Screen Question Answer Notes Did you have a drink containing alcohol in the p ast year? No Points 0 Interpretation Negative Problems Problem Type SNOMED Code ICD Code Onset Dates Problem Status W/U Status Risk Notes Problem Morbid obesity (077839745) Obesity, Class III, BMI 40-49.9 (morbid obesity) (E66.01) Active confirmed Problem Lymphadenopathy (61294648) Cervical adenopathy (R59.0) Active confirmed Vital Signs Blood pressure systolic 136 mm Hg 07/10/19 25 Blood pressure diastolic 80 mm Hg 025 Height 63 in 07/10/2024 Weight 230 lbs 07/10/2024 BMI 40.74 kg/m2 07/10/2024 weight is down 1 pounds [facility] e 06-23-24 Encounters Encounter Location Date Provider Diagnosis Chevy Scanlon MD [address] [place], [place] [phone] 07/10/2024 Chevy Scanlon Trigeminal neuralgia G50.0 ; Annual physical exam Z00.00 ; Type 2 diabetes mellitus without complication, without long-term current use of insulin E11.9 ; Essential hypertension I10 ; Family history of brain aneurysm Z82.49 ; Encounter for screening for malignant neoplasm of colon Z12.11 ; Encounter for screening for malignant neoplasm of rectum Z12.12 ; Obesity, Class III, BMI 40-49.9 (morbid obesity) E66.01 ; Right upper quadrant pain R10.11 ; Cervical adenopathy R59.0 and Depression screening Z13.31 Assessments Encounter Date Diagnosis (ICD Code) Assessment Notes Treatment Notes Treatment Clinical Notes Section Notes 07/10/2024 Trigeminal neuralgia (ICD-10 - G50.0) doing well on meds, will continue current regiment 07/10/2024 Annual physical exam (ICD-10 - Z00.00) labs reviewed and discussed with patient 07/10/2024 Type 2 diabetes mellitus without complication, without long-term current use of insulin (ICD-10 - E11.9) stable, will continue current regiment 07/10/2024 Essential hypertension (ICD-10 - I10) doing well, will continue current regiment 07/10/2024 Family history of brain aneurysm (ICD-10 - Z82.49) had a negative mra 07/10/2024 Encounter for screening for malignant neoplasm of colon (ICD-10 - Z12.11) Order faxed to [facility] 07/10/2024 Encounter for screening for malignant neoplasm of rectum (ICD-10 - Z12.12) 07/10/2024 Obesity, Class III, BMI 40-49.9 (morbid obesity) (ICD-10 - E66.01) advised on diet and exercise 07/10/2024 Right upper quadrant pain (ICD-10 - R10.11) order faxed to [facility] , pending diagnostic testing 07/10/2024 Cervical adenopathy (ICD-10 - R59.0) feels benign will recheck 07/10/2024 Depression screening (ICD-10 - Z13.31) negative screen Plan Of Treatment Medication Medication Name Sig Start Date Stop Date Notes carBAMazepine 200 MG 1 tablet Orally Twi ce a day for 30 days 06/10/2024 Ozempic (0.25 or 0.5 MG/DOSE ) 2 MG/3ML 0.25 mg Subcutaneous weekly for 30 days 07/10/2024 Treatment Notes Assessment Notes Trigeminal neuralgia doing well on meds, will continue current regiment Annual physical exam labs reviewed and d iscussed with patient Type 2 diabetes mellitus wit hout complication, without long-term current use of insulin stable, will continue current regiment Essential hypertension doing well, will continue current regiment Family history of brain aneurysm had a n egative mra Encounter for screening for malignant neoplasm of colon Order faxed to [facility] Obesity, Class III, BMI 40-4 9.9 (morbid obesity) advised on diet and exercise Right upper quadrant pain order faxed to [facility] , pending diagnostic testing Cervical adenopathy feels benign will re check Depression screening negative screen Pending Test Test Name Order Date US ABD 07/10/2024 COL[facility]ARD 07/10/2024 Microalbumin, Random 07/10/2024 UA ClnCatch+Micro w/rflx Cult 07/10/2024 Next Appt Details Follow Up: 6 Weeks, Reason: Provider Name:Chevy otoole, 08/19/2024 08:45:00 AM, [address] [place] [address], [address], [place], [place], [phone], Provider Name:Chevy otoole, 07/10/2025 08:00:00 AM, [address] [place] [address], [address], [place], [place], [phone], Provider Name:Chevy Shrestha ier, 07/17/2025 07:00:00 AM, [address], [address], [place], [phone], Progress Notes * DARIA SALCEDOHDOB:1970 (54 yo F)Acc No.[id number]:07/10/2024 Progress Notes Patient:?JUSTIN SALCEDO Provider:?Chevy Scanlon MD :1970???Age:54 Y???Sex:Female D ate:07/10/2024 Address: [address], [facility] Subjective: * Chief Complaints: * ???1. ANNUAL EXAM. 2. [facility]. * HPI: ???Depression Screening:?PHQ-9?Little interest or pleasure in doing things?Not at all,?Feeling down, depressed, or hopeless?Not at all,?Trouble falling or staying asleep, or sleeping too much?Not at all,?Feeling tired or having little energy?Not at all,?Poor appetite or overeating?Not at all,?Feeling bad about yourself or that you are a failure, or have let yourself or your family down?Not at all,?Trouble concentrating on things, such as reading the newspaper or watching television?Not at all,?Moving or speaking so slowly that other people could have noticed; or the opposite, being so fidgety or restless that you have been moving around a lot more than usual?Not at all,?Thoughts that you would be better off or of hurting yourself in some way?Not at all,?Total Score?0.?Interpretation and Intervention?Depression Screening Findings?Negative,?Follow-Up for Depression?: review of PHQ-9 found negative result, no follow-up needed.?Communication Needs:?Communication Needs?Does the patient have a hearing impairment?No,?Does the patient have a vision impairment??Yes,?If yes, what is the vision impairment??Glasses,?Does the patient have a cognition impairment??No.?SDOH Questions:?SDOH Questions?In the past year have you been worried about losing housing??No,?In the past year have you or any family members you live with been unable to get any of the following when it was really needed? Check all that apply:?None.?Symptom(s):? patient is a 54 yo female here for annual visit with review of recent lbs and follow up of chronic issues, neuralgia better for a couple weeks. * ROS:?General/Constitutional:?Patient denies?fatigue, headache.?Change in appetite?denies.?Chills?denies.?Fever?denies.?Ophthalmologic:?Blurred vision?denies.?Discharge?denies.?Pain?denies.?ENT:?Patient denies?decreased sense of smell, any loss of taste, sore throat.?Decreased hearing?denies.?Sore throat?denies.?Swollen glands?denies.?Endocrine:?Cold intolerance?denies.?Excessive thirst?denies.?Heat intolerance?denies.?Weight loss?denies.?Respiratory:?Cough?denies.?Shortness of breath at rest?denies.?Shortness of breath with exertion?denies.?Wheezing?denies.?Cardiovascular:?Chest pain at rest?denies.?Chest pain with exertion?denies.?Irregular heartbeat?denies.?Shortness of breath?denies.?Gastrointestinal:?Abdominal pain?denies.?Change in bowel habits?denies.?Diarrhea?denies.?Nausea?denies.?Rectal bleeding?denies.?Vomiting?denies .?Genitourinary:?Blood in urine?denies.?Difficulty urinating?denies.?Frequent urination?denies.?Urinary incontinence?Denies.?Musculoskeletal:?Patient denies?muscle aches.?Painful joints?denies.?Weakness?denies.?Peripheral Vascular:?Patient denies?red and blue toes.?Skin:?Dry skin?denies.?Itching?denies.?Denies?Mole(s),? changes in moles, new moles or any lesions of concern.?Denies?Photosensitivity.?Rash?denies.?Neurologic:?Dizziness?denies.?Fainting?denies.?Headache?denies.? * Medical History:?Cielo negative. * Family History:?Father: denice gonzlaez 77 yrs.?Mother: 70 yrs.?1 brother(s) . 1 son(s) , 1 daughter(s) . .? fATHER- hEALTHY MOTHER ANEURYSM, No pertinent family medical history, Denies mental health/substance abuse family history, No pertinent family medical history, No pertinent family medical history. * Social History:?Tobacco Use:?Tobacco Use/Smoking?Patient is a?nonsmoker,?Additional Findings: Tobacco Non-User?Current non-smoker, currently using no form of tobacco.?Drugs/Alcohol:?Alcohol Screen?Did you have a drink containing alcohol in the past year??No,?Points?0,?Interpretation?Negative.?Miscellaneous:?Caffeine: yes, frequency:. Children: yes. Exercise: no. Home smoke detector use: yes. Housing: owning. Marital status: . Occupation: weeks/months/years. Pets: 1 dog. Travel outside of the [place]: no. * Medications:?Taking traZODon e HCl 50 mg Tablet Take 2 tablets (100 mg total) by mouth at night if needed for sleep. , Taking metFORMIN HCl 1000 MG Tablet Take 1 tablet (1,000 mg total) by mouth 2 (two) times per day with meals. Orally twice a day , Taking Valsartan-hydroCHLOROthiazide 80-12.5 MG Tablet TAKE 1 TABLET BY MOUTH DAILY Orally Once a day , Taking Levocetirizine Dihydrochloride 5 mg Tablet Take 1 tablet (5 mg total) by mouth 1 (one) time each day in the evening. Orally Once a day , Taking carBAMazepine 200 MG Tablet 1 tablet Orally Twice a day , Taking traMADol HCl 50 MG Tablet 1 tablet as needed Orally twice a day , Taking valACYclovir HCl 1 GM Tablet 1 tablet Orally 3 times a day , Not-Taking/PRN Plaquenil 200 MG Tablet as directed Orally , Not-Taking/PRN Anoro Ellipta 62.5-25 MCG/INH Aerosol Powder Breath Activated 1 puff Inhalation Once a day , Not-Taking/PRN Triamcinolone Acetonide 0.1 % Cream 1 application Externally Twice a day , Not-Taking/PRN Valtrex 1 GM Tablet 1 tablet Orally three times per day , Not-Taking/PRN Meclizine HCl 12.5 MG Tablet 2 tablets as needed Orally Once a day , Not-Taking/PRN Temazepam 15 MG Capsule 1 capsule at bedtime as needed Orally Once a day , Discontinued Farxiga 10 mg Tablet Take 1 tablet (10 mg total) by mouth 1 (one) time each day. Orally Once a day , Medication List reviewed and reconciled with the patient * Allergies:?Ibuprofen: CANKER SORES, HYDROcodone: whole body itch. Objective: * Vitals:?Ht: 63, Wt: 230, BMI :40.74, BP:136/80, Wt-k.33. weight is down 1 pounds since 06-23-24. * ???Past Orders: ???Lab:Complete Blood Count Auto Diff (Order Date - 07/03/2024) (Collection Date & Time - 07/03/2024 07:15 AM) ? Value Reference Range ?White Blood Count 8.3 4. 8-10.8 - X10*3/uL ?Red Blood Count 4.28 4.20 -5.50 - X10*6/uL ?Hemoglobin 12.7 12.0-16.0 - g/dl ?Hematocrit 38.7 37.0-47.0 - % ?Mean Corpuscular Volume 90.4 80.0-98.0 - fL ?Mean Corpuscular Hemoglobin 29.7 27.0-33.0 - pg ?Mean Corpuscular HGB Conc 32.8 31.0-35.0 - g/dl ?Red Cell Distribution Width 15.5 11.0-16.0 - % ?Platelet Count 233 160-4 00 - X10*3/uL ?Mean Platelet Volume 11.7 9.4-12.3 - fL ?Neutrophils Percent Auto 45.8 45-73 - % ?Imm Gran Pct Auto 0.5 H 0. 0-0.4 - % ?Lymphocytes Percent Auto 41.6 H 20-40 - % ?Monocytes Percent Auto 8.1 2-11 - % ?Eosinophils Percent Auto 3.2 0-4 - % ?Basophils Percent Auto 0.8 0-2 - % ?NRBC Pct Auto 0.0 0.0-0. 2 - /100WBC ?Neutrophils Absolute Auto 3.8 2.0-8.3 - x10*3/uL ?Imm Gran Abs Auto 0.04 H 0. 00-0.03 - X10*3/uL ?Lymphocytes Absolute Auto 3.4 1.2-4.9 - X10*3/uL ?Monocytes Absolute Auto 0.7 0.1-1.2 - X10*3/uL ?Eosinophils Absolute Auto 0.3 0.0-0.4 - X10*3/uL ?Basophils Absolute Auto 0.1 0.0-0.2 - X10*3/uL ?NRBC Abs Auto 0.000 0.0-0. 012 - X10*3/uL ???Lab:Lipid Panel (Order Da te - 07/03/2024) (Collection Date & Time - 07/03/2024 07:15 AM) ? Value Reference Range ?Triglycerides 133 <150 - mg/dL ?Cholesterol 183 <200 - m g/dL ?LDL Cholesterol Calculated 118 H <100 - mg/dL ?HDL Cholesterol 39 L >40 - mg/dL ???Lab:Hemoglobin A1c (Order Date - 07/03/2024) (Collection Date & Time - 07/03/2024 07:15 AM) ? Value Reference Range ?Hemoglobin A1c % 7.1 H <6. 0 - % ?Estimated Average Glucose 157 - mg/dL * Examination: ???General Examination: ?GENERAL APPEARANCE:?well developed, well nourished, in no acute distress.?HEAD:?normocephalic, atraumatic.?EYES:?pupils equal, round, reactive to light and accommodation, sclera non-icteric.?EARS:?normal.?ORAL CAVITY:?mucosa moist.?THROAT:?clear.?NECK/THYROID:?neck supple, full range of motion, abnormal,has a stable 1/2 inch left posterior cervical node freely movable feels benign?, no bruits.?SKIN:?warm and dry, no suspicious lesions.?HEART:?regular rate and rhythm, S1, S2 normal, no murmurs.?LUNGS:?clear to auscultation bilaterally.?BREASTS:?No mass, no lump.?ABDOMEN:?soft, abnormal, , nondistended, bowel sounds present, normal, no organomegaly , no masses palpable tender right? upper quadrant.?RECTAL EXAM:?refused.?FEMALE GENITOURINARY:?refused.?EXTREMITIES:?no clubbing, cyanosis, or edema.?NEUROLOGIC:?nonfocal, motor strength normal upper and lower extremities, sensory exam intact.? Assessment: * Assessment: 1.?Annual physical exam - Z0 0.00 (Primary)???2.?Trigeminal neuralgia - G50.0???3.?Type 2 diabetes mellitus without complication, without long-term current use of insulin - E11.9???4.?Essential hypertension - I10???5. Family history of brain aneurysm - Z82.49???6.?Encounter for screening for malignant neoplasm of colon - Z12.11???7.?Encounter for screening for malignant neoplasm of rectum - Z12.12???8.?Obesity, Class III, BMI 40-49.9 (morbid obesity) - E66.01???9.?Right upper quadrant pain - R10.11???10.?Cervical adenopathy - R59.0???11.?Depression screening - Z13.31??? Plan: * Treatment: 2.?Trigeminal neuralgia? Refill carBAMazepine Tablet, 200 MG, 1 tablet, Orally, Twice a day, 30 days, 60.?LAB: UA ClnCatch+Micro w/rflx Cult (Collection Date & Time - 07/10/2024 08:30 AM) ?Imaging: US ABD Notes: doing well on meds, will continue current regiment??3.?Type 2 diabetes mellitus without complication, without long-term current use of insulin? Start Ozempic (0.25 or 0.5 MG/DOSE) Solution Pen-injector, 2 MG/3ML, 0.25 mg, Subcutaneous, weekly,30 days, 1, Refills 1.?LAB: Microalbumin, Random (Collection Date & Time - 07/10/2024 08:30 AM) ?LAB: UA ClnCatch+Micro w/rflx Cult (Collection Date & Time - 07/10/2024 08:30 AM) Notes: stable, will continue current regiment??4.?Essential hypertension?LAB: Microalbumin, Random (Collection Date & Time - 07/10/2024 08:30 AM) ?LAB: UA ClnCatch+Micro w/rflx Cult (Collection Date & Time - 07/10/2024 08:30 AM) Notes: doing well, will continue current regiment??5.?Family history of brain aneurysm? Notes: had a negative mra??6.?Encounter for screening for malignant neoplasm of colon?LAB: [facility]UARD Notes: Order faxed to [facility]??7.?Encounter for screening for malignant neoplasm of rectum?LAB: COLOGUARD8.?Obesity, Class III, BMI 40-49.9 (morbid obesity)? Notes: advised on diet and exercise??9.?Right upper quadrant pain?Imaging: US ABD* [facility] Notes: order faxed to [facility] , pending diagnostic testing??10.?Cervical adenopathy? Notes: feels benign will recheck??11.?Depression screening? Notes: negative screen?? * Preventive Medicine:? ??Diabetes Care Plan:?Patient Lifestyle Goals?Needs to maintain diet control.?Treatment Goals?A1C< 7.?Barriers ?No specific barriers, doing well.?Self-Managment Plan?Take BS's twice daily and keep a log. Bring to appt.?Expected Outcome?maintaining stable blood sugar levels within a target range.? * Follow Up:?6 Weeks * * The named appointment provid er may or may not be the originator of this progress note, and it is not deemed complete until electronically signed by the appointment provider. Sign off status: Pending * Provider:?Chevy Scanlon MD Date:?0 07/10/2024 Generated for Connie bailey/Derrick/eTransmitting on:?07/10/2024 12:39 PM EST History and Physical Notes * HPI (History of Present Illness) Category Sub-Category Detail Notes Category Not es Symptom(s) patient is a 54 yo female here for annual visit with review of recent lbs and follow up of chronic issues, neuralgia better for a couple weeks Depression Screening PHQ-9 Little inte rest or pleasure in doing things: Not at all Feeling down, depressed, or hopeless: No t at all Trouble falling or staying asleep, or sl eeping too much: Not at all Feeling tired or having little energy: N ot at all Poor appetite or overeating: Not at all Feeling bad about yourself o r that you are a failure, or have let yourself or your family down: Not at all Trouble concentrating on thi ngs, such as reading the newspaper or watching television: Not at all Moving or speaking so slowly that other people could have noticed; or the opposite, being so fidgety or restless that you have been moving around a lot more than usual: Not at all Thoughts that you would be b ying off or of hurting yourself in some way: Not at all Total Score: 0 Interpretation and Intervention Depression Marquez guadarrama Findings: Negative Follow-Up for Depression: : review of PH Q-9 found negative result, no follow-up needed SDOH Questions SDOH Questions In the past year have you been worried about losing housing?: No In the past year have you or any family members you live with been unable to get any of the following when it was really needed? Check all that apply:: None Communication Needs Communication Needs Does the patient have a hearing impairment: No Does the patient have a vision impairmen t?: Yes ?If yes, what is the vision impairment?: Glasses Does the patient have a cognition impair ment?: No Examination Category Sub-Category Detail Notes Category Not es General Examination GENERAL APPEARANCE: well dev eloped, well nourished, in no acute distress HEAD: normocephalic, atrau matic EYES: pupils equal, round, reactive to light and accommodation, sclera non- icteric EARS: normal THROAT: clear NECK/THYROID: neck supple, full ra nge of motion, abnormal,has a stable 1/2 inch left posterior cervical node freely movable feels benign , no bruits HEART: regular rate and rhy thm, S1, S2 normal, no murmurs LUNGS: clear to auscultatio n bilaterally ABDOMEN: soft, abnormal, , no ndistended, bowel sounds present, normal, no organomegaly , no masses palpable tender right upper quadrant NEUROLOGIC: nonfocal, motor stre ngth normal upper and lower extremities, sensory exam intact SKIN: warm and dry, no shankar picious lesions EXTREMITIES: no clubbing, cyanosi s, or edema BREASTS: No mass, no lump RECTAL EXAM: refused FEMALE GENITOURINARY: refused ORAL CAVITY: mucosa moist
--- OUTSIDE RECORDS SUMMARY | 2024-07-10 12:39 | XMS_ITS ---
Author Organization Chevy Scanlon MD Address [address] [place], [place] [id number] Care Team Providers Care Batteryman Name Role Phone Chevy Scanlon Primary Care [...] Location Date Provider Diagnosis Chevy Scanlon MD [address] [place] [address] [place] [phone] 06/23/2024 Chevy Scanlon Lymphadenopathy R59. 1 ; [...] Notes Lymphadenopathy will check in one mo [facility] Trigeminal neuralgia doing better Type 2 diabetes mellitus wit hout complication, without long-term current use of insulin was not able to afford farxiga Next Appt Details Provider Name:Chevy otoole, 08/19/2024 08:45:00 AM, [address] [place] [address], [address], [place], [place], [phone], Provider Name:Chevy otoole, 07/10/2025 08:00:00 AM, [address] [place] [address], Suite [facility], [place], [place], [phone], Provider Name:Chevy Shrestha ier, 07/17/2025 07:00:00 AM, [address], [address], [place], [phone], Progress Notes * DARIA SALCEDOHDOB:1970 (54 yo F)Acc No.[id number]:06/23/2024 Patient:?JUSTIN SALCEDO Provider:?Chevy Scanlon MD :1970???Age:54 Y???Sex:Female D ate:06/23/2024 Address: [address], [id number] Subjective: * Chief Complaints: * ???1 week [...] insulin? Notes: was not able to afford [employer]?? * Procedure Codes:? * * Sign off status: Completed true * Provider:?Chevy Scanlon MD Date:?0 06/23/2024 Generated for Connie bailey/Derrick/Markysmitting on:?07/10/2024 12:39 PM EST History and Physical [...]
--- OUTSIDE RECORDS SUMMARY | 2024-07-10 12:39 | XMS_ITS ---
Author Organization Chevy Scanlon MD Address [address] [place], [place] [id number] Care Team Providers Care Publications Editor Name Role Phone Chevy Scanlon Primary Care Provider Results Component Value Reference Range Notes Complete Blood Count Auto Di ff Reviewed date:07/04/2024 04:30:12 PM Interpretation: Performing Lab:[facility], [address] [place] [phone] Notes/Report: White Blood Count 8.3 4.8-10.8 X10*3/uL [...] NRBC Abs Auto 0.000 0.0-0.012 X10*3/uL [facility] [place]. Panel Fa st Reviewed date:07/10/2024 09:28:20 AM Interpretation:MANDY 07/10 LABS Performing Lab:[address] [phone] Notes/Report: Sodium 142 135-145 mmol/L Potassium 4.2 [...] Alkaline Phosphatase 77 39-117 U/L Lipid Panel Reviewed date:07/03/2024 12:43:57 PM Interpretation: Performing Lab:[facility], [address] [place] [phone] Notes/Report: Triglycerides 133 <150 mg/dL Desirable Triglyceride: [...] in patients with liver disease. Hemoglobin A1c Reviewed date:07/03/2024 12:43:38 PM Interpretation: Performing Lab:[facility], [address] [place] [phone] Notes/Report: Hemoglobin A1c % 7.1 <6.0 % [...] average glucose, using the formula of the [id number] Average Glucose study (ADAG), Diabetes Care, Vol.31,#8, Dec. 2007 REASON FOR VISIT FASTING LABS Encounters Encounter Location Date Provider Diagnosis Chevy Scanlon MD [address] [place] [address] [address] [place], [place] [phone] 07/03/2024 Chevy Scanlon Blood tests for routine [...] Treatment Pending Test Test Name Order Date Microalbumin, Random 07/03/2024 UA ClnCatch+Micro w/rflx Cult 07/03/2024 Next Appt Details Provider Name:Chevy Shrestha ier, 08/19/2024 08:45:00 AM, [address], [address], [place], [place], [phone], Provider Name:Chevy Shrestha ier, 07/10/2025 08:00:00 AM, [address], [address], [place], [place], [phone], Provider Name:Chevy Shrestha ier, 07/17/2025 07:00:00 AM, [address], [address], [place], [place], [id number], Progress Notes * DARIA SALCEDOHDOB:1970 (54 yo F)Acc No.[id number]:07/03/2024 Progress Note Patient:?JUSTIN SALCEDO Provider:?Chevy Scanlon MD :1970???Age:54 Y???Sex:Female D ate:07/03/2024 Address: [address], [place], [place] Subjective: * Chief Complaints: * ???1. FASTING LABS. * Medical History:? Objective: * Vitals:? Assessment: * Assessment: 1.?Blood tests for routine g eneral physical examination - Z00.00 (Primary)???2.?Labile hypertension - R09.89???3.?Low HDL (under 40) - E78.6???4.?Essential hypertension - I10???5.?Type 2 diabetes mellitus without complication, without long-term current use of insulin - E11.9???6.?Lymphocytosis - D72.820??? Plan: * Treatment: 2.?Labile hypertension?LAB: Microalbumin, Random ?LAB: UA ClnCatch+Micro w/rflx Cult ?LAB: Complete Blood Count Auto Diff (Collection Date & Time - 07/03/2024 07:15 AM) ?LAB: [facility] [place]. Panel Fast (Collection Date & Time - 07/03/2024 07:15 AM) ?LAB: Lipid Panel (Collection Date & Time - 07/03/2024 07:15 AM) ?LAB: Hemoglobin A1c (Collection Date & Time - 07/03/2024 07:15 AM) 3.?Low HDL (under 40)?LAB: Microalbumin, Random ?LAB: UA ClnCatch+Micro w/rflx Cult ?LAB: Complete Blood Count Auto Diff (Collection Date & Time - 07/03/2024 07:15 AM) ?LAB: [facility] [place]. Panel Fast (Collection Date & Time - 07/03/2024 07:15 AM) ?LAB: Lipid Panel (Collection Date & Time - 07/03/2024 07:15 AM) ?LAB: Hemoglobin A1c (Collection Date & Time - 07/03/2024 07:15 AM) 4.?Essential hypertension?LAB: Microalbumin, Random ?LAB: UA ClnCatch+Micro w/rflx Cult ?LAB: Complete Blood Count Auto Diff (Collection Date & Time - 07/03/2024 07:15 AM) ?LAB: [facility] [place]. Panel Fast (Collection Date & Time - 07/03/2024 07:15 AM) ?LAB: Lipid Panel (Collection Date & Time - 07/03/2024 07:15 AM) ?LAB: Hemoglobin A1c (Collection Date & Time - 07/03/2024 07:15 AM) 5.?Type 2 diabetes mellitus without complication, without long-term current use of insulin?LAB: Microalbumin, Random ?LAB: UA ClnCatch+Micro w/rflx Cult ?LAB: Complete Blood Count Auto Diff (Collection Date & Time - 07/03/2024 07:15 AM) ?LAB: [facility] [place]. Panel Fast (Collection Date & Time - 07/03/2024 07:15 AM) ?LAB: Lipid Panel (Collection Date & Time - 07/03/2024 07:15 AM) ?LAB: Hemoglobin A1c (Collection Date & Time - 07/03/2024 07:15 AM) 6.?Lymphocytosis?LAB: Microalbumin, Random ?LAB: UA ClnCatch+Micro w/rflx Cult ?LAB: Complete Blood Count Auto Diff (Collection Date & Time - 07/03/2024 07:15 AM) ?LAB: [facility] [place]. Panel Fast (Collection Date & Time - 07/03/2024 07:15 AM) ?LAB: Lipid Panel (Collection Date & Time - 07/03/2024 07:15 AM) ?LAB: Hemoglobin A1c (Collection Date & Time - 07/03/2024 07:15 AM) * Procedure Codes:?64040 VENIP UNCT, ROUTINE* * * The named appointment provid er may or may not be the originator of this progress note, and it is not deemed complete until electronically signed by the appointment provider. Sign off status: Pending * Provider:?Chevy Scanlon MD Date:?0 07/03/2024 Generated for Connie bailey/Derrick/Mengitting on:?07/10/2024 12:39 PM EST
== END 2024-07-10 08:31 | disposition home or self-care (01) ==
LOC: HO.LNP 08:30
PROVIDERS: Visit Provider Internal Medicine
DX: E11.9 Type 2 diabetes mellitus without complications (principal); I10 Essential (primary) hypertension; G50.0 Trigeminal neuralgia; R82.79 Other abnormal findings on microbiological examination of urine
CPT/HCPCS: 81001; 81003; 82043; 82570; 87086; 87147

== ENCOUNTER 2024-09-15 11:50 | Inpatient (IN) | payer OTHER, SELFPAY ==
[2024-09-15] VITALS (8 sets, daily range): BP systolic 117–137; BP diastolic 62–87; PULSE 83–118; RESP 18–19; TEMP 36.8–36.9; O2SAT 95–98; BMI 39.0
--- NOTE | ~2024-09-15 | XR_ITS ---
EXAMINATION: XR CHEST 1 VIEW HISTORY: coughing. pneumonia COMPARISON: Comparison is made with the prior examination dated 04/27/2020. FINDINGS: A single PA view of the chest is submitted. The lungs are expanded and clear. There is no pleural effusion, pneumothorax, or pulmonary vascular congestion. The heart is normal in size. The bones are intact. XR/XR chest 1V IMPRESSION: No acute cardiopulmonary abnormality. Electronically signed by: Narciso Gong MD 09/15/2024 12:25 PM EDT
--- NOTE | ~2024-09-15 | CT_ITS ---
EXAMINATION: CT CERVICAL SPINE WITHOUT CONTRAST CLINICAL INFORMATION: Fever. Neck pain. COMPARISON: None available. TECHNIQUE: Contiguous axial images through the cervical spine using 3 mm collimation with bone and soft tissue algorithm. Sagittal and coronal reformatted images acquired with a bone algorithm. This CT examination was performed using dose optimization techniques as appropriate, variously including the following: *Automated exposure control *Adjustment of mA and/or kV according to patient size (this includes techniques or standardized protocols for targeted exams where dose is matched to indication/reason for exam; i.e. extremities or head) *Use of iterative reconstruction technique. DLP: 609.35 mGy centimeter. FINDINGS: Craniocervical junction is intact with normal alignment. Marginal osteophyte formation and C5-6. C1 is intact. C2 is intact. C3 is intact. Left facet joint hypertrophy. C4 is intact. C5 is intact. C6 is intact. C7 is intact. There is normal alignment between the vertebral bodies and the facet joints. No prevertebral compartment hematoma. Tympanic cavities and mastoid air cells are aerated. Fatty density within the parotid glands. CT/CT cervical spine wo IV con IMPRESSION: No acute fracture or trauma-related listhesis. Fleischner guidelines were followed. Electronically signed by: Pepe Kim MD 09/15/2024 01:21 PM EDT
--- NOTE | ~2024-09-15 | CT_ITS ---
EXAMINATION: CT HEAD WITHOUT CONTRAST CLINICAL INFORMATION: fever COMPARISON: April 24, 2011 is not available for system. Correlated to MRI dated July 31, 2014. TECHNIQUE: Contiguous axial imaging was performed from the skull base to vertex without intravenous administration of contrast. This CT examination was performed using dose optimization techniques as appropriate, variously including the following: *Automated exposure control *Adjustment of mA and/or kV according to patient size (this includes techniques or standardized protocols for targeted exams where dose is matched to indication/reason for exam; i.e. extremities or head) *Use of iterative reconstruction technique DLP: 710.46 mGy-cm FINDINGS: No acute intracranial hemorrhage, mass effect, midline shift, hydrocephalus or herniation. There is a 1 cm crescent-shaped extra-axial calcification along the inner table of the left frontal convexity without gross mass effect. The bony calvarium is intact. The skull base is grossly intact. Sellar/suprasellar region demonstrated no gross masses or hemorrhage. Posterior cranial fossa contents demonstrated no gross mass effect or focal hemorrhage. Calcified plaques in the cavernous segments of the ICA. No air-fluid levels in the paranasal sinuses. Tympanic cavities and mastoid air cells are aerated. Fatty density throughout the parotid glands. CT/CT head/brain wo IV con IMPRESSION: No acute intracranial hemorrhage or acute brain abnormality by CT. Electronically signed by: Pepe Kim MD 09/15/2024 12:55 PM EDT
--- NOTE | 2024-09-15 12:02 | ED_ITS ---
HPI - General Adult General Chief complaint: General Medical Stated complaint: body aches sent in by PCP Time Seen by Provider: 09/15/24 14:16 History of Present Illness HPI narrative: I saw the patient at approximately 14:20. Patient presented today with having congestion fever aches not feeling well was initially seen in triage. Labs were drawn. Patient's COVID flu RSV were negative. Patient's electrolytes showed a slight lactic acidosis of 2.2. Patient also had a white count that is normal but a shift with bandemia 14% brought to the main ED for further evaluation patient had some neck pain. Had generalized malaise. No pain on urination. No coughing or congestion or upper respiratory symptoms. Does not think she is . She is from home. Related Data Home Medications ?Medication ?Instructions ?Recorded ?Confirmed albuterol sulfate 90 mcg/actuation inhalation 05/28/20 09/15/20 aerosol inhaler melatonin 10 mg capsule 10 mg PO BEDTIME PRN 05/28/20 09/15/20 valsartan 80 1 tab PO DAILY 05/28/20 09/15/20 mg-hydrochlorothiazide 12.5 mg tablet dapagliflozin propanediol 10 mg 10 mg PO DAILY 07/15/20 09/15/20 tablet metformin 500 mg tablet 500 mg PO BID 07/15/20 09/15/20 prednisone 50 mg tablet 50 mg PO DAILY 09/15/20 09/15/20 Previous Rx's ?Medication ?Instructions ?Recorded umeclidinium 62.5 mcg-vilanterol 1 inh inhalation DAILY 30 days #1 05/28/20 25 mcg/actuation powdr for ea inhalation (Anoro Ellipta) omeprazole 40 mg capsule,delayed 40 mg PO DAILY 30 days #30 caps 09/15/20 release prednisone 10 mg tablet 30 mg (3 x 10 mg) PO DAILY 30 days 09/15/20 #90 tabs Allergies Allergy/AdvReac Type Severity Reaction Status Date / Time ibuprofen [Ibuprofen] Allergy Unknown CANKER Verified 09/15/24 12:03 SORES oxycodone Allergy Unknown Unknown Verified 09/15/24 12:03 Review of Systems 2 Review of Systems: Positive fever Positive headache Yes all other systems are reviewed and are negative PMFSH Past Medical History Attestation statement: The following information was validated with the patient. Medical History COVID-19 Diabetes Hypertension Family History Family History Maternal Grandmother No problems noted. 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 Oriented X3. No acute distress. Eyes: Pupils equal, round and reactive to light. ENT: Pharynx normal. Neck: Normal inspection. Neck supple. No lymph nodes noted. No crepitus CVS: Normal heart rate and rhythm. Pulses normal. Normal S1 and S2 Respiratory: No respiratory distress. Breath sounds normal. No Wheezing. No rales Abdomen: Soft and nontender. No rigidity. No distention. good BS x4 Skin: Skin warm and dry. Normal skin color. Normal skin turgor. Extremities: No lower extremity edema. Neurovascular intact to all extremities. No Lacerations. No Rash Neuro: Oriented X 3. No motor deficit. No sensory deficit. Moving all extermities. No slurred speech Course Course Course Narrative: RME: 54-year-old female history of diabetes hypertension presents to ED for body aches, neck pain, postnasal drip cough since Sunday. Patient is sent by PCP to rule out meningitis. Negative for any signs of nuchal rigidity. Negative for any rash. Negative for photophobia. Labs chest x-ray head CT scan ordered. PCP also referred patient for Lyme. Medications Administered Generic Name Dose Route Start Last Admin Trade Name Freq PRN Reason Stop Dose Admin Vancomycin HCl 2,000 mg in 500 mls @ 250 mls/hr 09/15/24 14:45 09/15/24 15:06 Vancomycin/Ns IV 09/15/24 16:44 250 mls/hr ONCE ONE Administration Discontinued Medications Generic Name Dose Route Start Last Admin Trade Name Ruperto PRN Reason Stop Dose Admin Ceftriaxone Sodium 2 gm 09/15/24 14:27 09/15/24 14:54 Ceftriaxone Sodium 2 Gm Vial IVPUSH 09/15/24 14:28 2 gm ONCE ONE Administration Hydromorphone HCl 0.5 mg 09/15/24 14:40 09/15/24 14:58 Hydromorphone Hcl 0.5 Mg/0.5 Ml Syringe IVPUSH 09/15/24 14:41 0.5 mg ONCE ONE Administration Protocol Sodium Chloride 2,898.45 mls @ 2,898.45 mls/hr 09/15/24 14:27 09/15/24 16:12 Ns 30 ml/kg infuse over 1 hr (2898.45 ml) 09/15/24 15:26 Infused IV Infusion .Q1H STA Procedures Lumbar Puncture Time Out Performed: Yes Patient Position: upright Skin Prep: Povidone-Iodine 1% Local Anesthetic: lidocaine 1% Amount of anesthesia used (mL): 3 Interspace Used: L3-L4 Fluid Initially Obtained: clear Complications: none Medical Decision Making Medical Decision Making MDM Narrative: Patient has tachycardia heart rate 118. Positive generalized malaise weakness. Lactate elevated with a bandemia blood cultures ordered already. We will give 30 cc/kilos fluids. My interpretation patient's chest x-ray was grossly negative for any acute evidence of pneumonia. Patient's flu COVID RSV are all negative. My interpretation patient's CT head was negative for any acute evidence of bleeding. No mass. I reviewed radiology's reading of the CT head CT C-spine. Patient had a bandemia has tachycardia. 30 cc/kilos fluid was ordered. Patient was ordered antibiotics 2 g of Rocephin along with vancomycin to cover for possible MRSA. Risks and benefits of LP explained to patient and family. Agree with plan. 30 cc per kilos of IV fluid was given. Patient's antibiotic was given. Patient's lactate came down to 1.8. No signs of severe sepsis. Differential Diagnosis Differential Diagnoses: The differential diagnosis associated with the presentation includes Meningitis, Lyme disease, ehrlichiosis, babesiosis, pneumonia, UTI Admission/Observation Consideration of admission/observation: Escalation of care including admission/observation considered Consult Healthcare Provider Management of the patient was discussed with: Hospitalist Lab Data MDM Lab Attestation statement: I reviewed the patient's lab results. 09/15/24 12:42 09/15/24 12:42 Labs: Lab Results 09/15/24 09/15/24 Range/Units 12:42 14:53 WBC 7.6 (4.8-10.8) X10*3/uL RBC 4.53 (4.20-5.50) X10*6/uL Hgb 13.5 (12.0-16.0) g/dl Hct 39.0 (37.0-47.0) % MCV 86.1 (80.0-98.0) fL MCH 29.8 (27.0-33.0) pg MCHC 34.6 (31.0-35.0) g/dl RDW 14.2 (11.0-16.0) % Plt Count 203 (160-400) X10*3/uL MPV 10.7 (9.4-12.3) fL Immature Gran % (Auto) Cancelled Neut % (Auto) Cancelled Lymph % (Auto) Cancelled Evans % (Auto) Cancelled Eos % (Auto) Cancelled Baso % (Auto) Cancelled Lymph # (Auto) Cancelled Evans # (Auto) Cancelled Eos # (Auto) Cancelled Baso # (Auto) Cancelled Abs Immat Gran (auto) Cancelled Absolute Neuts (auto) Cancelled Absolute Nucleated RBC 0.000 (0.0-0.012) X10*3/uL Nucleated RBC % (auto) 0.0 (0.0-0.2) /100WBC Neutrophils % (Manual) 46 (45-73) % Band Neutrophils % 14 H (3-5) % Lymphocytes % (Manual) 27 (20-40) % Atypical Lymphs % (Man) 6 (0-6) % Monocytes % (Manual) 6 (2-11) % Eosinophils % (Manual) 1 (0-4) % Abs Neuts (Manual) 4.6 (2.0-8.3) X10*3/uL Lymphocytes # (Manual) 2.1 (1.2-4.9) X10*3/uL Atyp Lymphs # (Manual) 0.5 x10*3/uL Monocytes # (Manual) 0.5 (0.1-1.2) X10*3/uL Eosinophils # (Manual) 0.1 (0.0-0.4) X10*3/uL Toxic Vacuolation PRESENT Platelet Estimate NORMAL (NORMAL) Plt Morphology Comment NORMAL RBC Morphology NORMAL Sodium 137 (135-145) mmol/L Potassium 3.4 (3.3-5.1) mmol/L Chloride 98 (96-108) mmol/L Carbon Dioxide 26 (22-29) mmol/L Anion Gap 16 (12-20) BUN 15 (9-16) mg/dL Creatinine 0.79 (0.5-1.4) mg/dL Estim Creat Clear Calc 88.2 Estimated GFR > 60 Random Glucose 143 H (60-115) mg/dL Lactic Acid 2.2 H* (0.5-2.0) mmol/L Lactic Acid F/U @ 2Hr 1.9 (0.5-2.0) mmol/L Calcium 9.1 (8.4-10.2) mg/dL Total Bilirubin 0.6 (0.0-1.0) mg/dL AST 52 H (5-31) U/L ALT 55 H (0-31) U/L Alkaline Phosphatase 66 (39-117) U/L Total Protein 8.1 H (6.5-8.0) g/dL Albumin 4.3 (3.5-5.0) g/dL Beta HCG, Quant < 2 mIU/mL Influenza Type A (PCR) NEGATIVE (Negative) Influenza Type B (PCR) NEGATIVE (Negative) RSV RNA Qual (PCR) NEGATIVE (Negative) SARS-CoV-2 RNA (RT-PCR) NEGATIVE (Negative) Independent Interpretation I performed an independent interpretation of an: Plain X-Ray (Chest x-ray negative) and CT Scan (CT head negative for bleed) Radiology Impression Discussion of test interpretation with radiology: I have reviewed the radiologist's reading. Independent Historian Clinical information obtained from an independent historian. History obtained from or confirmed by: Spouse External Record Review External record reviewed: Inpatient record Chronic Conditions Patient?s care impacted by: Diabetes Critical Care Time Critical Care Time Critical Care Time: Yes Total Critical Care Time: 40 Attestation: I have personally provided 40 minutes of critical care time exclusive of time spent on separately billable procedures. ?Time includes review of lab data, radiology results, discussion with consultants, and monitoring for potential decompensation. ?Interventions were performed as documented above Discharge Plan Discharge Clinical Impression: Fever, Bandemia Patient Disposition: Admitted As Inpatient Print Language: Slovenian
[2024-09-15 12:54] LABS: Hemoglobin 13.5 g/dl (12.0-16.0); Mean Corpuscular HGB Conc 34.6 g/dl (31.0-35.0); Mean Corpuscular Hemoglobin 29.8 pg (27.0-33.0); Mean Corpuscular Volume 86.1 fL (80.0-98.0); Mean Platelet Volume 10.7 fL (9.4-12.3); Platelet Count 203 X10*3/uL (160-400); Red Blood Count 4.53 X10*6/uL (4.20-5.50); Red Cell Distribution Width 14.2 % (11.0-16.0); White Blood Count 7.6 X10*3/uL (4.8-10.8)
[2024-09-15 13:10] LABS: Alanine Aminotransferase 55 U/L (0-31); Albumin Level 4.3 g/dL (3.5-5.0); Alkaline Phosphatase 66 U/L (39-117); Anion Gap 16 (12-20); Aspartate Amino Transferase 52 U/L (5-31); Bilirubin Total 0.6 mg/dL (0.0-1.0); Blood Urea Nitrogen 15 mg/dL (9-16); Calcium 9.1 mg/dL (8.4-10.2); Carbon Dioxide 26 mmol/L (22-29); Chloride 98 mmol/L (96-108); Creatinine Clr Calc Pharmacy 88.2; Estimated Glomerular Filt Rate > 60; Glucose Random 143 mg/dL (60-115); Potassium 3.4 mmol/L (3.3-5.1); Sodium 137 mmol/L (135-145); Total Protein 8.1 g/dL (6.5-8.0)
[2024-09-15 13:12] LABS: Lactic Acid 2.2 mmol/L (0.5-2.0)
[2024-09-15 13:14] LABS: HCG Quantitative < 2 mIU/mL
[2024-09-15 13:39] LABS: Influenza A PCR NEGATIVE (Negative); Influenza B PCR NEGATIVE (Negative); Resp Syncy Virus RNA Qual PCR NEGATIVE (Negative); SARS COV2 PCR INHOUSE NEGATIVE (Negative)
[2024-09-15 13:55] LABS: Neutrophils Percent Manual 46 % (45-73)
[2024-09-15 14:00] LABS: Atypical Lymph Absolute Manual 0.5 x10*3/uL; Atypical Lymphs Percent Manual 6 % (0-6); Band Neutrophils Percent 14 % (3-5); Eosinophils Absolute Manual 0.1 X10*3/uL (0.0-0.4); Eosinophils Percent Manual 1 % (0-4); Lymphocytes Absolute Manual 2.1 X10*3/uL (1.2-4.9); Lymphocytes Percent Manual 27 % (20-40); Monocytes Absolute Manual 0.5 X10*3/uL (0.1-1.2); Monocytes Percent Manual 6 % (2-11); Neutrophils Absolute Manual 4.6 X10*3/uL (2.0-8.3); Platelet Estimate NORMAL (NORMAL); Platelet Morphology Comment NORMAL; RBC Morphology NORMAL; Toxic Vacuolation PRESENT
[2024-09-15 14:48] LABS: Reflex Lactate? Lactic Acid Added
[2024-09-15] MEDS: SODIUM CHLORIDE 2898.45 ML IV (14:54)
[2024-09-15] MEDS: cefTRIAXone sodium 2 GM VIAL IVPUSH (14:54)
[2024-09-15] MEDS: HYDROmorphone HCl 0.5 MG/0.5 ML SYRINGE IVPUSH ×2 (14:58→16:45)
[2024-09-15] MEDS: vancomycin/NS 2,000 MG/500 ML PLAST..BAG 250 MG IV (15:06)
[2024-09-15 15:20] LABS: ~Lactic Acid-LAB USE ONLY 1.9 mmol/L (0.5-2.0)
--- OUTSIDE RECORDS SUMMARY | 2024-09-15 15:59 | XMS_ITS ---
Author Organization Chevy Scanlon MD Address [address] [place], [place] [id number] Care Team Providers Care Gandy Dancer Name Role Phone Chevy Scanlon Primary Care Provider Allergies Allergen (clinical drug ingredient) Drug/Non Drug Allergy documented on EMR Reaction Allergy Type Onset Date Status hydrocodone HYDROcodone whole body itch Drug Allergy Active ibuprofen Ibuprofen CANKER SORES Drug Allergy Acti ve REASON FOR VISIT 6 weeks, [id number] Medications Medication SIG (Take, Route, Frequency, Duration) Notes Start Date End Date Status Levocetirizine Dihydrochloride 5 mg Take 1 tablet (5 mg total) by mouth 1 (one) time each day in the evening. Orally Once a day for 90 days Active Valsartan-hydroCHLOROthiaz matthias 80-12.5 MG TAKE 1 TABLET BY MOUTH DAILY Orally Once a day for 90 days Active metFORMIN HCl 1000 MG Take 1 tablet (1,0 00 mg total) by mouth 2 (two) times per day with meals. Orally twice a day for 90 days Active Ozempic (0.25 or 0.5 MG/DOSE) 2 MG/3ML 0.5 mg Subcutaneous weekly for 30 days 07/10/2024 Active traZODone HCl 50 mg Take 2 tablets (100 mg total) by mouth at night if needed for sleep. for 30 Active Temazepam 15 MG 1 capsule at bedtime as needed Orally Once a day Not-Taking Meclizine HCl 12.5 MG 2 tablets as neede d Orally Once a day for 30 day(s) Not-Taking Valtrex 1 GM 1 tablet Orally thre e times per day for 7 days 06/17/2020 Not-Taking Triamcinolone Acetonide 0.1 % 1 application Externally Twice a day for 30 days 06/03/2020 Not-Taking Anoro Ellipta 62.5-25 MCG/INH 1 puff Inhalation Once a day Not-Taking Plaquenil 200 MG as directed Orally Not-Taking carBAMazepine 200 mg TAKE 1 TABLET BY [facility] TWICE DAILY ORALLY TWICE PER DAY for 90 days Active valACYclovir HCl 1 GM 1 tablet Orally 3 times a day for 7 days 06/13/2024 Active traMADol HCl 50 MG 1 tablet as needed Orally twice a day for 10 days 06/13/2024 Active Vital Signs Height 63 in 08/19/2024 Weight 221 lbs 08/19/2024 BMI 39.14 kg/m2 08/19/2024 weight at home is 221 down 9 pounds since 07-10-24 BP not taken Encounters Encounter Location Date Provider Diagnosis Chevy Scanlon MD [address] [facility] [address] [place] [phone] 08/19/2024 Chevy Scanlon Encounter for screening for malignant neoplasm of colon Z12.11 ; Right upper quadrant abdominal pain R10.11 ; Encounter for screening for malignant neoplasm of rectum Z12.12 and Weight loss R63.4 Assessments Encounter Date Diagnosis (ICD Code) Assessment Notes Treatment Notes Treatment Clinical Notes Section Notes 08/19/2024 Encounter for screening for malignant neoplasm of colon (ICD-10 - Z12.11) 08/19/2024 Right upper quadrant abdominal pain (ICD-10 - R10.11) has resolved, reviewed Abdominal US with patient 08/19/2024 Encounter for screening for malignant neoplasm of rectum (ICD-10 - Z12.12) 08/19/2024 Weight loss (ICD-10 - R63.4) Plan Of Treatment Medication Medication Name Sig Start Date Stop Date Notes Ozempic (0.25 or 0.5 MG/DOSE) 2 MG/3ML 0.5 mg Subcutaneous weekly for 30 days 07/10/2024 Treatment Notes Assessment Notes Right upper quadrant abdominal pain has resolved, reviewed Abdominal US with patient Pending Test Test Name Order Date COLOGUARD 08/19/2024 Next Appt Details Follow Up: 4 Weeks TV, Adryan n: Provider Name:Chevy otoole, 09/18/2024 07:30:00 AM, [address], [address], [place], [place], [phone], Provider Name:Chevy otoole, 07/10/2025 08:00:00 AM, [address] [facility], [address], [place], [phone], Provider Name:Chevy Polina Henrietta otoole, 07/17/2025 07:00:00 AM, [address] [facility], [address], [place], [phone], Progress Notes * DARIA SALCEDOHDOB:1970 (54 yo F)Acc No.[id number]:08/19/2024 Patient:?JUSTIN SLACEDO Provider:?Chevy Scanlon MD :1970???Age:54 Y???Sex:Female D ate:08/19/2024 [id number] Subjective: * Chief Complaints: * ???6 [id number] * HPI: ???Symptom(s):?Telehealth?Location of provider rendering services:?[address] [place] [address], [address],?Location of patient:?at address listed in demographics for today's visit,?Patient identification confirmed using:?Name, ,?Telehealth method:?Video conference where patient is visible to the provider of care,?Consent:?Patient verbally consented to treatment, Patient verbally consented to billing insurance company, Patient informed of any privacy concerns related to method of visit,?Total time spend talking with patient (minutes)?18.?patient is a 54 yo female video telehealth visit, here for 6 week follow up visit/ previous right upper quad pain, has resolved, had gotten sick to stomach only once. 3 or 4 weeks into it. has lost 9 pounds.eating smaller meals and no soda and junk food. doing well has lost 9 pounds. last 2 weeks not losing weight. * ROS:?General/Constitutional:?Denies?Chills.?Denies?Fatigue.?Denies?Fever.?Denies?Headache.?ENT:?Patient denies?decreased sense of smell, any loss of taste, sore throat.?Denies?Sore throat.?Respiratory:?Denies?Cough.?Denies?Shortness of breath at rest.?Denies?Shortness of breath with exertion.?Gastrointestinal:?Denies?Diarrhea.?Denies?Nausea.?Musculoskeletal:?Patient denies?muscle aches.?Peripheral Vascular:?Patient denies?red and blue toes.? * Medical History:? * Surgical History:? * Hospitalization/Major Diagno stic Procedure:? * Medications:?TakingtraZODone HCl 50 mg Tablet Take 2 tablets (100 mg total) by mouth at night if needed for sleep. metFORMIN HCl 1000 MG Tablet Take 1 tablet (1,000 mg total) by mouth 2 (two) times per day with meals. Orally twice a day Valsartan-hydroCHLOROthiazide 80-12.5 MG Tablet TAKE 1 TABLET BY MOUTH DAILY Orally Once a day Levocetirizine Dihydrochloride 5 mg Tablet Take 1 tablet (5 mg total) by mouth 1 (one) time each day in the evening. Orally Once a day traMADol HCl 50 MG Tablet 1 tablet as needed Orally twice a day valACYclovir HCl 1 GM Tablet 1 tablet Orally 3 times a day Ozempic (0.25 or 0.5 MG/DOSE) 2 MG/3ML Solution Pen- injector 0.25 mg Subcutaneous weekly carBAMazepine 200 mg Tablet TAKE 1 TABLET BY MOUTH TWICE DAILY ORALLY TWICE PER DAY Taking traZODone HCl 50 mg Tablet Take 2 tablets (100 mg total) by mouth at night if needed for sleep. Taking metFORMIN HCl 1000 MG Tablet Take [...] the evening. Orally Once a day Taking traMADol HCl 50 MG Tablet 1 tablet as needed Orally twice a day Taking valACYclovir HCl 1 GM Tablet 1 tablet Orally 3 times a day Taking Ozempic (0.25 or 0.5 MG/DOSE) 2 MG/3ML Solution Pen-injector 0.25 mg Subcutaneous weekly Taking carBAMazepine 200 mg Tablet TAKE 1 TABLET BY MOUTH TWICE DAILY ORALLY TWICE PER DAY Not-Taking/PRNPlaquenil 200 MG Tablet as directed Orally [...] Activated 1 puff Inhalation Once a day Not- Taking/PRN Triamcinolone Acetonide 0.1 % Cream 1 application Externally Twice a day Not-Taking/PRN Valtrex 1 GM Tablet 1 tablet Orally three times per day Not- Taking/PRN Meclizine HCl 12.5 MG Tablet 2 tablets as needed Orally Once a day Not- Taking/PRN Temazepam 15 MG Capsule 1 capsule at bedtime as needed Orally Once a day Medication List reviewed and reconciled with the patient * Allergies:?Ibuprofen: CANKER SORESHYDROcodone: whole body itchyes[Allergies Verified] Objective: * Vitals:?Ht: 63, Wt: 221, BMI :39.14, Wt-k.24. weight at home is 221 down 9 pounds since 07-10-24? BP? not taken. * Examination: ???General Examination: ?GENERAL APPEARANCE:?alert, well hydrated, in no distress.? Assessment: * Assessment: 1.?Right upper quadrant abdo nydia pain - R10.11 (Primary)???2.?Encounter for screening for malignant neoplasm of colon - Z12.11???3.?Encounter for screening for malignant neoplasm of rectum - Z12.12???4.?Weight loss - R63.4??? Plan: * Treatment: 2.?Encounter for screening f or malignant neoplasm of colon?LAB: COLOGUARD 3.?Encounter for screening f or malignant neoplasm of rectum?LAB: COLOGUARD 4.?Weight loss? Refill Ozempic (0.25 or 0.5 MG/DOSE) Solution Pen-injector, 2 MG/3ML, 0.5 mg, Subcutaneous, weekly, 30 days, 1, Refills 3.?? * Procedure Codes:? * Follow Up:?4 Weeks TV * * Sign off status: Completed true * Provider:?Chevy Scanlon MD Date:?0 08/19/2024 Generated for Connie bailey/Derrick/eTransmitting on:?09/15/2024 03:59 PM EDT History and Physical Notes * HPI (History of Present Illness) Category Sub-Category Detail Notes Category Not es Symptom(s) Telehealth Location of [facility] rendering services:: [address], [address] patient is a 54 yo female video telehealth visit, here for 6 week follow up visit/ previous right upper quad pain, has resolved, had gotten sick to stomach only once. 3 or 4 weeks into it. has lost 9 pounds.eating smaller meals and no soda and junk food. doing well has lost 9 pounds. last 2 weeks not losing weight Location of patient:: at address listed in demographics for today's visit Patient identification confirmed using:: Name, Telehealth method:: Video co nference where patient is visible to the provider of care Consent:: Patient verbally c onsented to treatment, Patient verbally consented to billing insurance company, Patient informed of any privacy concerns related to method of visit Total time spend talking with patient (m inutes): 18 Examination Category Sub-Category Detail Notes Category Not es General Examination GENERAL APPEARANCE: alert, w ell hydrated, in no distress
--- OUTSIDE RECORDS SUMMARY | 2024-09-15 15:59 | XMS_ITS ---
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 Name Role Phone Chevy Scanlon Primary Care Provider REASON FOR VISIT Available appointment Sunday Encounters Encounter Location Date Provider Diagnosis Chevy Scanlon MD [address] [place] [address] [address] [place] [phone] 09/14/2024 Chevy Scanlon Plan Of Treatment Next Appt Details Provider Name:Chevy otoole, 09/18/2024 07:30:00 AM, [address] [place] [address], Suite [facility], [place], [place], [phone], Provider Name:Chevy otoole, 07/10/2025 08:00:00 AM, [address] [place] [address], [address], [phone], Provider Name:Chevy otoole, 07/17/2025 07:00:00 AM, [address] [place] [address], [address] [place] [address], [phone], Progress Notes * DARIA SALCEDOHDOB:1970 (54 yo F)Acc No.[id number]:09/14/2024 Patient:JUSTIN SCHULTE :1970???Age:54 Y???Sex:Female Address:[address] [place], [address] * true * Date:? Generated for Connie bailey/Derrick/Mengitting on:?09/15/2024 03:59 PM EDT
--- OUTSIDE RECORDS SUMMARY | 2024-09-15 16:00 | XMS_ITS | Patient Health Record ---
Author Organization Chevy Scanlon MD Address [address] [place], [place] [id number] Care Team Providers Care Junior Data Analyst Name Role Phone Chevy Scanlon Primary Care Provider Allergies Allergen (clinical drug ingredient) Drug/Non Drug Allergy documented on EMR Reaction Allergy Type Onset Date Status hydrocodone HYDROcodone whole body itch Drug Allergy Active ibuprofen Ibuprofen CANKER SORES Drug Allergy Acti ve Results Component Value Reference Range Notes Complete Blood Count Auto Di ff Reviewed date:07/04/2024 04:30:12 PM Interpretation: Performing Lab:[facility], [address] [place] [phone] Notes/Report: White Blood Count 8.3 4.8-10.8 X10*3/uL [...] 0.0-0.2 /100WBC Neutrophils Absolute Auto 3.8 2.0-8.3 x10*3/uL Imm Gran Abs Auto 0.04 0.00-0.03 X10*3/uL Lymphocytes Absolute Auto 3.4 1.2-4.9 X10*3/uL Monocytes Absolute Auto 0.7 0.1-1.2 X10*3/uL Eosinophils Absolute Auto 0.3 0.0-0.4 X10*3/uL Basophils Absolute Auto 0.1 0.0-0.2 X10*3/uL NRBC Abs Auto 0.000 0.0-0.012 X10*3/uL Comprehensive [place]. Panel Fa st Reviewed date:07/10/2024 09:28:20 AM Interpretation:MANDY 07/10 LABS Performing Lab:[address] [phone] Notes/Report: Sodium 142 135-145 mmol/L Potassium 4.2 [...] Panel Reviewed date:07/03/2024 12:43:57 PM Interpretation: Performing Lab:[address] [phone] Notes/Report: Triglycerides 133 <150 mg/dL Desirable Triglyceride: [...] A1c Reviewed date:07/03/2024 12:43:38 PM Interpretation: Performing Lab:[address] [phone] Notes/Report: Hemoglobin A1c % 7.1 <6.0 % [...] average glucose, using the formula of the D8K-Uktxsif Average Glucose study (ADAG), Diabetes Care, Vol.31,#8, 2007 Microalbumin, Random Reviewed date:07/10/2024 12:52:05 PM Interpretation: Performing Lab:[facility], [address] [place] [phone] Notes/Report: Creatinine Urine 176.71 Microalbumin Urine 23.0 Microalbum/Creatinine Ratio Ur 13.0 <30 ug/mg cr Albumin/Creatinine Ratio Reference Ranges: Normal: < 30 ug/mg creatinine Microalbuminuria: 30 - 300 ug/mg creatinine Clinical Albuminuria: > 300 ug/mg creatinine UA ClnCatch+Micro w/rflx Cul t Reviewed date:07/10/2024 04:34:06 PM Interpretation: Performing Lab:[facility], [address] [place] [phone] Notes/Report: [id number] 0830 Urine, Clean Catch Color Urine Yellow Appearance Urine Clear PH 5.5 5.0-9.0 Glucose Urine UA 250 Negative mg/dL Urine Blood Negative Negative Specific [place] - Urine 1.025 1.005-1.025 Urine Protein Negative Neg-Trace mg/dL Urine Ketones Negative Negative mg/dL Nitrite Urine Negative Negative Leukocyte Esterase Urine Trace Negative RBC Urine 0-2 0-2 /HPF WBC Urine 11-20 0-5 /HPF Squamous Epithelial Cell Urine 3-5 0-2 /HPF Bacteria Urine None Seen None Seen Hyaline Casts Urine 0-2 0-2 /LPF Hold Gold Reviewed date:07/03/2024 12:41:13 PM Interpretation: Performing Lab:[facility], [address] [place] [phone] Notes/Report: Hold Gold See Note Specimen held untested for 24 hours; Call to request Chemistry testing. Urine Culture Reviewed date:07/11/2024 04:40:11 PM Interpretation: Performing Lab:[facility], [address] [place] [phone] Notes/Report: O:STRAGA Strep agalactiae (Gr p B) Urine Culture Quant Urine Culture 10,000 to 50,000 cfu/mL Urine Culture Susc N/A Urine Culture Susceptibility not routinely performed on this isolate. Complete Blood Count Man Dif (Not yet reviewed by provider) Interpretation: Performing Lab:[address] [phone] Notes/Report: White Blood Count 7.6 4.8-10.8 X10*3/uL Red Blood Count 4.53 4.20-5.50 X10*6/uL Hemoglobin 13.5 12.0-16.0 g/dl Hematocrit 39.0 37.0-47.0 % Mean Corpuscular Volume 86.1 80.0-98.0 fL Mean Corpuscular Hemoglobin 29.8 27.0-33.0 pg Mean Corpuscular HGB Conc 34.6 31.0-35.0 g/dl Red Cell Distribution Width 14.2 11.0-16.0 % Platelet Count 203 160-400 X10*3/uL Mean Platelet Volume 10.7 9.4-12.3 fL NRBC Pct Auto 0.0 0.0-0.2 /100WBC NRBC Abs Auto 0.000 0.0-0.012 X10*3/uL Neutrophils Percent Manual 46 45-73 % Band Neutrophils Percent 14 3-5 % Results of BANDS called to VALERIE on 09/15/24 at 1400 by EMIR. Lymphocytes Percent Manual 27 20-40 % Atypical Lymphs Percent Manual 6 0-6 % Monocytes Percent Manual 6 2-11 % Eosinophils Percent Manual 1 0-4 % Neutrophils Absolute Manual 4.6 2.0-8.3 X10*3/uL Lymphocytes Absolute Manual 2.1 1.2-4.9 X10*3/uL Atypical Lymph Absolute Manual 0.5 Monocytes Absolute Manual 0.5 0.1-1.2 X10*3/uL Eosinophils Absolute Manual 0.1 0.0-0.4 X10*3/uL Platelet Estimate NORMAL NORMAL Platelet Morphology Comment NORMAL RBC Morphology NORMAL Toxic Vacuolation PRESENT Lactic Acid-LAB USE ONLY (No t yet reviewed by provider) Interpretation: Performing Lab:[facility], [address] [place] [phone] Notes/Report: Lactic Acid-LAB USE ONLY 1.9 0.5-2.0 mmol/L Comprehensive Met. Panel Reviewed date:09/15/2024 01:35:03 PM Interpretation: Performing Lab:[facility], [address] [place] [phone] Notes/Report: Sodium 137 135-145 mmol/L Potassium 3.4 3.3-5.1 mmol/L Chloride 98 96-108 mmol/L Carbon Dioxide 26 22-29 mmol/L Anion Gap 16 12-20 Blood Urea Nitrogen 15 9-16 mg/dL Creatinine 0.79 0.5-1.4 mg/dL Creatinine Clr Calc Pharmacy 88.2 Provided height and weight: 157.48 cm, 96.615 kg. eGFR (calculated from the MDRD study equation) and eCrCl (calculated from the Cockcroft-Gault equation) are based on different parameters and may not yield comparable results. If eCrCl result is absurd, please check patient's height/weight. Estimated Glomerular Filt Rate > 60 Chronic Kidney Disease: Estimated GFR < 60 mL/min/1.73m2 Severe Kidney Disease: Estimated GFR < 15 mL/min/1.73m2 Glucose Random 143 60-115 mg/dL Calcium 9.1 8.4-10.2 mg/dL Bilirubin Total 0.6 0.0-1.0 mg/dL Aspartate Amino Transferase 52 5-31 U/L Alanine Aminotransferase 55 0-31 U/L Total Protein 8.1 6.5-8.0 g/dL Albumin Level 4.3 3.5-5.0 g/dL Alkaline Phosphatase 66 39-117 U/L Lactic Acid Reviewed date:09/15/2024 01:33:36 PM Interpretation: Performing Lab:[facility], [address] [place] [phone] Notes/Report: Lactic Acid 2.2 0.5-2.0 mmol/L Critical value for LACTIC: Results called to and read back by: SERGEY Person calling: CURLY Date: 09/15/24 Time: 1312 HCG Quantitative Reviewed date:09/15/2024 01:33:28 PM Interpretation: Performing Lab:[facility], [address] [place] [phone] Notes/Report: HCG Quantitative < 2 Weeks post LMP Approximate hCG (Last Menstrual Period) Range (mIU/ml) 3 - 4 weeks 9 - 130 4 - 5 weeks 75 - 2,600 5 - 6 weeks 850 - 20,800 6 - 7 weeks 4000 - 100,200 7 - 12 weeks 11,500 - 289,000 12 - 16 weeks 18,300 - 137,000 16 - 29 weeks (2nd trimester) 1,400 - 53,000 29 - 41 weeks (3rd trimester) 940 - 60,000 The [place]imes B-hCG assay is used for the early detection of ; it cannot be used to diagnose any condition unrelated to . If a B-hCG level is not supported by the clinical evidence, results should be confirmed by an alternative method (qualitative urine hCG, for example). SARS-CoV2/FLU/RSV Reviewed date:09/15/2024 01:56:02 PM Interpretation: Performing Lab:[address] [phone] Notes/Report: Influenza A PCR NEGATIVE Negative Influenza B PCR NEGATIVE Negative Resp Syncy Virus RNA Qual PCR NEGATIVE Negative SARS COV2 PCR INHOUSE NEGATIVE Negative All test results must be correlated with clinical findings. Negative results do not preclude SARS-CoV2, influenza A virus, influenza B virus and/or RSV infection and should not be used as the sole basis for treatment or other patient management decisions. Negative results must be combined with clinical observations, patient history, and epidemiological information. This test has not been evaluated for monitoring treatment of infection. This test has been authorized by the FDA under an Emergency Use Authorization (EUA) for use by authorized laboratories. Testing performed on the [employer] GeneXpert utilizing real-time RT-PCR. All SARS CoV2 and positive influenza A/B results are reported to [facility]. CT cervical spine wo con Reviewed date:09/15/2024 01:33:15 PM Interpretation: Performing Lab: Notes/Report: [address] [address] [address] Scan Report Signed Patient: Jarett Salcedo MR#: [id number] 2 : 1970 Acct:[id number] Age/Sex: 54 / F ADM Date: 09/15/24 Loc: .ED Attending Dr: Ordering Physician: Jerel House Date of Service: 09/15/24 Procedure(s): CT cervical spine wo IV con Accession Number(s): [id number] cc: Jerel House; Chevy Scanlon MD Report Number: [id number]: Total DLP = 0.00 mGy-cm EXAMINATION: CT CERVICAL SPINE WITHOUT CONTRAST CLINICAL INFORMATION: Fever. Neck pain. COMPARISON: None available. TECHNIQUE: Contiguous axial images through the cervical spine using 3 mm collimation with bone and soft tissue algorithm. Sagittal and coronal reformatted images acquired with a bone algorithm. This CT examination was performed using dose optimization techniques as appropriate, variously including the following: *Automated exposure control *Adjustment of mA and/or kV according to patient size (this includes techniques or standardized protocols for targeted exams where dose is matched to indication/reason for exam; i.e. extremities or head) *Use of iterative reconstruction technique. DLP: 609.35 mGy centimeter. FINDINGS: Craniocervical junction is intact with normal alignment. Marginal osteophyte formation and C5-6. C1 is intact. C2 is intact. C3 is intact. Left facet joint hypertrophy. C4 is intact. C5 is intact. C6 is intact. C7 is intact. There is normal alignment between the vertebral bodies and the facet joints. No prevertebral compartment hematoma. Tympanic cavities and mastoid air cells are aerated. Fatty density within the parotid glands. CT/CT cervical spine wo IV con IMPRESSION: No acute fracture or trauma-related listhesis. Fleischner guidelines were followed. Electronically signed by: Pepe Kim MD 09/15/2024 01:21 PM EDT RP Dictated By: Pepe Yanez MD Signed By: <Electronically signed by Pepe London MD in OV> 09/15/24 1321 DD/ 1210 TD/TT: 09/15/24 1238 Director Agricultural Services: [place] [address] CT Scan Report Signed Patient: Clarence Salcedo MR#: [id number] 2 : 1970 Acct:[id number] Age/Sex: 54 / F ADM Date: 09/15/24 Loc: HO.ED Attending Dr: Ordering Physician: Jerel House Date of Service: 09/15/24 Procedure(s): CT cervical spine wo IV con Accession Number(s): [id number] cc: Jerel House; Chevy Scanlon MD Report Number: [id number]: Total DLP = 0.00 mGy-cm EXAMINATION: CT CERVICAL SPINE WITHOUT CONTRAST CLINICAL INFORMATION: Fever. Neck pain. COMPARISON: None available. TECHNIQUE: Contiguous axial saumya ges through the cervical spine using 3 mm collimation with bon e and soft tissue algorithm. Sagittal and coronal reformatted images acquired with a bone algorithm. This CT examination was performed using dose optimization techniques as appropriate, various ly including the following: *Automated exposure control *Adjustment of mA and/or kV according to patient size (this includes techniques or standardized protocols for targeted exams where dose is matched to indication/reason for exam; i.e. extremities or head) *Use of iterative reconstruction technique. DLP: 609.35 mGy centimeter. FINDINGS: Craniocervical junct ion is intact with normal alignment. Marginal osteophyte formation and C5-6. C1 is intact. C2 is intact. C3 is intact. Left facet joint hypertrophy. C4 is intact. C5 is intact. C6 is intact. C7 is intact. There is normal alignment between the vertebral bodies and the facet joints. No prevertebral compartment hematoma. Tympanic cavities an d mastoid air cells are aerated. Fatty density within the parotid glands. CT/CT cervical spine wo IV con IMPRESSION: No acute fracture or trauma-related listhesis. Fleischner guideline s were followed. Electronically miladis d by: Pepe Kim MD 09/15/2024 01:21 PM EDT RP Dictated By: Pepe Cisneros MD Signed By: <Electronically signed by Pepe London MD in OV> 09/15/24 1321 DD/ 1210 TD/TT: 09/15/24 1238 Director Agricultural Services: CT head/brain wo con Reviewed date:09/15/2024 01:34:36 PM Interpretation: Performing Lab: Notes/Report: [address] [address] [address] Scan Report Signed Patient: Jarett Salcedo MR#: [id number] 2 : 1970 Acct:[id number] Age/Sex: 54 / F ADM Date: 09/15/24 Loc: HO.ED Attending Dr: Ordering Physician: Jerel House Date of Service: 09/15/24 Procedure(s): CT head/brain wo IV con Accession Number(s): [id number] cc: Jerel House; Chevy Scanlon MD Report Number: [id number]: Total DLP = 1329.00 mGy-cm EXAMINATION: CT HEAD WITHOUT CONTRAST CLINICAL INFORMATION: fever COMPARISON: April 24, 2011 is not available for system. Correlated to MRI dated July 31, 2014. TECHNIQUE: Contiguous axial imaging was performed from the skull base to vertex without intravenous administration of contrast. This CT examination was performed using dose optimization techniques as appropriate, variously including the following: *Automated exposure control *Adjustment of mA and/or kV according to patient size (this includes techniques or standardized protocols for targeted exams where dose is matched to indication/reason for exam; i.e. extremities or head) *Use of iterative reconstruction technique DLP: 710.46 mGy-cm FINDINGS: No acute intracranial hemorrhage, mass effect, midline shift, hydrocephalus or herniation. There is a 1 cm crescent-shaped extra-axial calcification along the inner table of the left frontal convexity without gross mass effect. The bony calvarium is intact. The skull base is grossly intact. Sellar/suprasellar region demonstrated no gross masses or hemorrhage. Posterior cranial fossa contents demonstrated no gross mass effect or focal hemorrhage. Calcified plaques in the cavernous segments of the ICA. No air-fluid levels in the paranasal sinuses. Tympanic cavities and mastoid air cells are aerated. Fatty density throughout the parotid glands. CT/CT head/brain wo IV con IMPRESSION: No acute intracranial hemorrhage or acute brain abnormality by CT. Electronically signed by: Pepe Kim MD 09/15/2024 12:55 PM EDT Dictated By: Pepe Yanez MD Signed By: <Electronically signed by Pepe London MD in OV> 09/15/24 1255 DD/ 1212 TD/TT: 09/15/24 1238 Director Agricultural Services: [place] [address] CT Scan Report Signed Patient: Clarence Salcedo MR#: [id number] 2 : 1970 Acct:[id number] Age/Sex: 54 / F ADM Date: 09/15/24 Loc: .ED Attending Dr: Ordering Physician: Jerel House Date of Service: 09/15/24 Procedure(s): CT head/brain wo IV con Accession Number(s): [id number] cc: Jerel House; Chevy Scanlon MD Report Number: [id number]: Total DLP = 1329.00 mGy-cm EXAMINATION: CT HEAD WITHOUT CONTRAST CLINICAL INFORMATION: fever COMPARISON: April 24, 2011 is not available for system. Correlated to MRI da oz July 31, 2014. TECHNIQUE: Contiguous axial imaging was performed from the skull base to vertex without intravenous administration of contrast. This CT examination was performed using dose optimization techniques as appropriate, various ly including the following: *Automated exposure control *Adjustment of mA and/or kV according to patient size (this includes techniques or standardized protocols for targeted exams where dose is matched to indication/reason for exam; i.e. extremities or head) *Use of iterative reconstruction technique DLP: 710.46 mGy-cm FINDINGS: No acute intracrania l hemorrhage, mass effect, midline shift, hydrocephalus or herniation. There is a 1 cm crescent-shaped extra-axial calcification along the inner table of the l eft frontal convexity without gross mass effect. The bony calvarium i s intact. The skull base is grossly intact. Sellar/suprasellar region demonstrated no gross masses or hemorrhage. Posterior cranial fo ssa contents demonstrated no gross mass effect or focal hemorrhage. Calcified plaques in the cavernous segments of the ICA. No air-fluid levels in the paranasal sinuses. Tympanic cavities and mastoid air cells ar e aerated. Fatty density throughout the parotid glands. CT/CT head/brain wo IV con IMPRESSION: No acute intracrania l hemorrhage or acute brain abnormality by CT. Electronically miladis d by: Pepe Kim MD 09/15/2024 12:55 PM EDT Dictated By: Pepe Cisneros MD Signed By: <Electronically signed by Pepe London MD in OV> 09/15/24 1255 DD/ 1212 TD/TT: 09/15/24 1238 Director Agricultural Services: XR chest 1V Reviewed date:09/15/2024 12:34:19 PM Interpretation: Performing Lab: Notes/Report: [address] [address] XRay Report Signed Patient: Jarett Salcedo MR#: [id number] 2 : 1970 Acct:[id number] Age/Sex: 54 / F ADM Date: 09/15/24 Loc: HO.ED Attending Dr: Ordering Physician: Jerel House Date of Service: 09/15/24 Procedure(s): XR chest 1V Accession Number(s): [id number] cc: Jerel House; Chevy Scanlon MD EXAMINATION: XR CHEST 1 VIEW HISTORY: coughing. pneumonia COMPARISON: Comparison is made with the prior examination dated 04/27/2020. FINDINGS: A single PA view of the chest is submitted. The lungs are expanded and clear. There is no pleural effusion, pneumothorax, or pulmonary vascular congestion. The heart is normal in size. The bones are intact. XR/XR chest 1V IMPRESSION: No acute cardiopulmonary abnormality. Electronically signed by: Narciso Gong MD 09/15/2024 12:25 PM EDT RP Dictated By: Narciso Gong MD Signed By: <Electronically signed by Narciso Gong MD in OV> 09/15/24 1225 DD/ 1201 TD/TT: 09/15/24 1219 Director Agricultural Services: [place] [address] XRay Report Signed Patient: Clarence Salcedo MR#: [id number] 2 : 1970 Acct:[id number] Age/Sex: 54 / F ADM Date: 09/15/24 Loc: .ED Attending Dr: Ordering Physician: Jerel House Date of Service: 09/15/24 Procedure(s): XR [address] st 1V Accession Number(s): [id number] cc: Jerel House; Chevy Scanlon MD EXAMINATION: XR CHES T 1 VIEW HISTORY: coughing. pneumonia COMPARISON: Comparis on is made with the prior examination dated 04/27/2020. FINDINGS: A single P A view of the chest is submitted. The lungs are expanded and clear. There is no pleural effusion, pneumothorax, or pulmonary vascular congestion. The heart is normal in size. The bones are intact. XR/XR chest 1V IMPRESSION: No acute cardiopulmonary abnormality. Electronically miladis d by: Narciso Gong MD 09/15/2024 12:25 PM EDT RP Dictated By: Narciso Gong MD Signed By: <Electronically signed by Narciso Gong MD in OV> 09/15/24 1225 DD/ 1201 TD/TT: 09/15/24 1219 Director Agricultural Services: Reason For Referral No Information Medications Medication SIG (Take, Route, Frequency, Duration) Notes Start Date End Date Status valACYclovir HCl 1 GM 1 tablet Orally 3 times a day for 7 days 06/13/2024 Active traMADol HCl 50 MG 1 tablet as needed Orally twice a day for 10 days 06/13/2024 Active Ozempic (0.25 or 0.5 MG/DOSE) 2 MG/3ML 0.5 mg Subcutaneous weekly for 30 days 07/10/2024 Active carBAMazepine 200 mg TAKE 1 TABLET BY [facility] TWICE DAILY ORALLY TWICE PER DAY for 90 days Active Anoro Ellipta 62.5-25 MCG/INH 1 puff Inhalation Once a day Not-Taking Plaquenil 200 MG as directed Orally Not-Taking traZODone HCl 50 mg Take 2 tablets (100 mg total) by mouth at night if needed for sleep. for 30 Active Valtrex 1 GM 1 tablet Orally thre e times per day for 7 days 06/17/2020 Not-Taking Triamcinolone Acetonide 0.1 % 1 application Externally Twice a day for 30 days 06/03/2020 Not-Taking Valsartan-hydroCHLOROthiaz matthias 80-12.5 MG TAKE 1 TABLET BY MOUTH DAILY Orally Once a day for 90 days Active Temazepam 15 MG 1 capsule at bedtime as needed Orally Once a day Not-Taking metFORMIN HCl 1000 MG Take 1 tablet (1,0 00 mg total) by mouth 2 (two) times per day with meals. Orally twice a day for 90 days Active Meclizine HCl 12.5 MG 2 tablets as neede d Orally Once a day for 30 day(s) Not-Taking Levocetirizine Dihydrochloride 5 mg Take 1 tablet (5 mg total) by mouth 1 (one) time each day in the evening. Orally Once a day for 90 days Active Immunizations Vaccine Route Administration Date Status Comme nts Fluarix Quadrivalent Unknown 04/09/2018 Administered HM C Fluarix Quadrivalent Unknown 03/11/2019 Administered HM C Fluarix Quadrivalent Unknown 02/16/2020 Administered HM C at work Covid Vaccine Unknown 09/12/2020 Administered Pfizer SARS-COV-2 Pfizer Unknown 10/03/2020 Administered SARS-COV-2 Pfizer Unknown 04/20/2021 Administered Fluarix Quadrivalent Unknown 03/08/2021 Administered Social History Tobacco Use: Social History Observation [...] Problem Status W/U Status Risk Notes Problem 07554550 Lymphocytosis (D72.820) Active confirmed Problem 73548089 Trigeminal neuralgia (G50.0) Active confirmed Problem 850387883 Nonalcoholic steatohepatitis (MORELOS) (K75.81) Active confirmed Problem 66493462 Essential hypertension (I10) Active confirmed Problem 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) Low HDL (under 40) (E78.6) Active confirmed Problem Lymphadenopathy (43440586) Cervical adenopathy (R59.0) Active confirmed Problem 748571544 Pneumonia of rig ht lower lobe due to infectious organism (J18.1) Active confirmed Problem 929360115 Type 2 diabetes mellitus without complication, without long-term current use of insulin (E11.9) Active confirmed Problem 740664317 Family history o f brain aneurysm (Z82.49) Active confirmed Problem 808210625 Labile hypertension (R09.89) Active confirmed Problem Morbid obesity (236379126) Obesity, Class III, BMI 40-49.9 (morbid obesity) (E66.01) Active confirmed Problem 796634188 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 Problem 433433051 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) Active confirmed Vital Signs Blood pressure diastolic 66 mm Hg 09/15/2024 john ght is down 8 pounds since 08-19-24 Height 63 in 09/15/2024 weight is down 8 pounds since 08-19-24 Blood pressure systolic 102 mm Hg 09/15/2024 weig ht is down 8 pounds since 08-19-24 Weight 213 lbs 09/15/2024 weight is down 8 pounds since 08-19-24 BMI 37.73 kg/m2 09/15/2024 weight is down 8 pounds since 08-19-24 Encounters Encounter Location Date Provider Diagnosis Chevy Scanlon MD [address] [place] [id number] 07/03/2024 Chevy Scanlon Blood tests for rout ine general physical examination Z00.00 ; Labile hypertension R09.89 ; Low HDL (under 40) E78.6 ; Essential hypertension I10 ; Type 2 diabetes mellitus without complication, without long-term current use of insulin E11.9 and Lymphocytosis D72.820 Chevy Scanlon MD [address] [place] [address] Drive [address] [place] [address] [id number] 09/15/2024 Chevy Scanlon Febrile illness R50. 9 Chevy Scanlon MD [address] [place] [address] [id number] 06/10/2024 Chevy Scanlon Trigeminal neuralgia G50.0 ; Family history of brain aneurysm Z82.49 and Jaw pain, non-TMJ R68.84 Chevy Scanlon MD [address] [place] [address] [id number] 06/13/2024 Chevy Scanlon Herpes zoster withou t complication B02.9 Chevy Scanlon MD [address] [place] [address] [phone] 06/23/2024 Chevy Scanlon Lymphadenopathy R59. 1 ; Trigeminal neuralgia G50.0 and Type 2 diabetes mellitus without complication, without long-term current use of insulin E11.9 Chevy Scanlon MD [address] [place] [address] [address] [phone] 07/10/2024 Chevy Scanlon Trigeminal neuralgia G50.0 ; [...] Cervical adenopathy R59.0 and Depression screening Z13.31 Chevy Scanlon MD [address] [place] [address] Drive [address] [place] [address] [id number] 08/19/2024 Chevy Scanlon Encounter for screen ing for malignant neoplasm of colon Z12.11 ; Right upper quadrant abdominal pain R10.11 ; Encounter for screening for malignant neoplasm of rectum Z12.12 and Weight loss R63.4 Chevy Scanlon MD [address] [place] [address] [id number] 02/15/2024 Chevy Scanlon MD [address] [place] [address] [id number] 06/12/2024 Chevy Scanlon MD [address] [address] [place] [address] [id number] 06/13/2024 Chevy Scanlon MD [address] [place] [address] [id number] 07/29/2024 Chevy Scanlon MD [address] [place] [address] [id number] 08/07/2024 Chevy Scanlon Trigeminal neuralgia G50.0 Chevy Scanlon MD [address] [id number] 02/15/2024 Chevy Scanlon MD [address] [place] [address] [id number] 09/14/2024 Chevy Scanlon Assessments Encounter Date Diagnosis (ICD Code) Assessment Notes Treatment Notes Treatment Clinical Notes Section Notes 07/03/2024 Blood tests for routine general physical examination (ICD-10 - Z00.00) 09/15/2024 Febrile illness (ICD-10 - R50.9) due to the neck stiffness i feel she needs er evaluation and have sent her to the er / have spoken with a doctor there as i think she needs a spinal tap 06/10/2024 Trigeminal neuralgia (ICD-10 - G50.0) ecg normal during discomfort 06/10/2024 Family history of brain aneurysm (ICD-10 - Z82.49) order faxed to [facility] 06/13/2024 Herpes zoster without complication (ICD-10 - B02.9) patient verbalized understanding of medication and directions for use 06/23/2024 Lymphadenopathy (ICD-10 - R59.1) will check in one month 06/23/2024 Trigeminal neuralgia (ICD-10 - G50.0) doing better 07/10/2024 Trigeminal neuralgia (ICD-10 - G50.0) doing well on meds, will continue current regiment 07/10/2024 Annual physical exam (ICD-10 - Z00.00) labs reviewed and discussed with patient 08/19/2024 Encounter for screening for malignant neoplasm of colon (ICD-10 - Z12.11) 08/19/2024 Right upper quadrant abdominal pain (ICD-10 - R10.11) has resolved, reviewed Abdominal US with patient 08/07/2024 Trigeminal neuralgia (ICD-10 - G50.0) 07/03/2024 Labile hypertension (ICD-10 - R09.89) 06/23/2024 Type 2 diabetes mellitus without complication, without long-term current use of insulin (ICD-10 - E11.9) was not able to afford farxiga 07/10/2024 Type 2 diabetes mellitus without complication, without long-term current use of insulin (ICD-10 - E11.9) stable, will continue current regiment 08/19/2024 Encounter for screening for malignant neoplasm of rectum (ICD-10 - Z12.12) 07/03/2024 Low HDL (under 40) (ICD-10 - E78.6) 06/10/2024 Jaw pain, non-TMJ (ICD-10 - R68.84) 07/10/2024 Essential hypertension (ICD-10 - I10) doing well, will continue current regiment 08/19/2024 Weight loss (ICD-10 - R63.4) 07/03/2024 Essential hypertension (ICD-10 - I10) 07/10/2024 Family history of brain aneurysm (ICD-10 - Z82.49) had a negative mra 07/03/2024 Type 2 diabetes mellitus without complication, without long-term current use of insulin (ICD-10 - E11.9) 07/10/2024 Encounter for screening for malignant neoplasm of colon (ICD-10 - Z12.11) Order faxed to [facility] 07/03/2024 Lymphocytosis (ICD-10 - D72.820) 07/10/2024 Encounter for screening for malignant neoplasm [...] - Z13.31) negative screen Plan Of Treatment Pending Test Test Name Order Date Electrocardiogram (EKG) 06/10/2024 MRA BRAIN NO CONTRAST 07/09/2023 MRI BRAIN W&WO CONTRAST 06/10/2024 MRI ELBOW LT NO CONTRAST 07/07/2022 MRI ELBOW LT W&WO CONTRAST 07/06/2022 XR CHEST 2 VIEW PA & LAT 04/27/2020 XR CHEST 2 VIEW PA & LAT 03/28/2018 MAMMOGRAM DIGITAL BILATERAL SCREEN 07/09 MAMMOGRAM DIGITAL BILATERAL SCREEN 06/03 US ABD 07/10/2024 US ABD 06/03/2020 Holter monitor 06/12/2019 COLOGUARD 08/19/2024 COLOGUARD 07/10/2024 Complete Blood Count Man Dif 09/15/2024 Microalbumin, Random 07/03/2024 Lactic Acid-LAB USE ONLY 09/15/2024 UA ClnCatch+Micro w/rflx Cult 07/03/2024 Next Appt Details Provider Name:Chevy otoole, 09/18/2024 07:30:00 AM, [address] [place] [address], [address], [place], [place], [phone], Provider Name:Chevy otoole, 07/10/2025 08:00:00 AM, [address] [place] [address] Drive, [address], [place], [place], [phone], Provider Name:Chevy doverr, 07/17/2025 07:00:00 AM, [address] [place] [address], Suite [facility], [place], [place], [phone], Insurance Providers Payer Name Payer Address Payer Phone Subscriber Number Group Number Insured Name Patient Relationship to Insured Coverage Start Date Coverage End Date [facility] [address] [place], [place] [id number] JARETT SALCEDO Self - patient is the insured Medical (General) History Medical History History ICD Code cologard 07/05 negative
--- OUTSIDE RECORDS SUMMARY | 2024-09-15 16:00 | XMS_ITS ---
Author Organization Chevy Scanlon MD Address [address] [place], [place] [id number] Care Team Providers Care Research Staff Member Name Role Phone Chevy Scanlon Primary Care Provider Allergies Allergen (clinical drug ingredient) Drug/Non Drug Allergy documented on EMR Reaction Allergy Type Onset Date Status hydrocodone HYDROcodone whole body itch Drug Allergy Active ibuprofen Ibuprofen CANKER SORES Drug Allergy Acti ve REASON FOR VISIT flu like symptoms, covid neg snd flu neg Medications Medication SIG (Take, Route, Frequency, Duration) Notes Start Date End Date Status Valsartan-hydroCHLOROthiaz matthias 80-12.5 MG TAKE 1 TABLET [...] Once a day for 30 day(s) Not-Taking traZODone HCl 50 mg Take 2 tablets (100 mg total) by mouth at night if needed for sleep. for 30 Active Ozempic (0.25 or 0.5 MG/DOSE) 2 MG/3ML 0.5 mg Subcutaneous weekly for 30 days 07/10/2024 Active Anoro Ellipta 62.5-25 MCG/INH 1 puff Inhalation Once a day Not-Taking Plaquenil 200 MG as directed Orally Not-Taking Valtrex 1 GM 1 tablet Orally thre e times per day for 7 days 06/17/2020 Not-Taking Triamcinolone Acetonide 0.1 % 1 application Externally Twice a day for 30 days 06/03/2020 Not-Taking Levocetirizine Dihydrochloride 5 mg Take 1 tablet (5 mg total) by mouth 1 (one) time each day in the evening. Orally Once a day for 90 days Active valACYclovir HCl 1 GM 1 tablet Orally 3 times a day for 7 days 06/13/2024 Active traMADol HCl 50 MG 1 tablet as needed Orally twice a day for 10 days 06/13/2024 Active carBAMazepine 200 mg TAKE 1 TABLET BY [facility] TWICE DAILY ORALLY TWICE PER DAY for 90 days Active Vital Signs Blood pressure systolic 102 mm Hg 09/16/19 25 Blood pressure diastolic 66 mm Hg 025 Height 63 in 09/15/2024 Weight 213 lbs 09/15/2024 BMI 37.73 kg/m2 09/15/2024 weight is down 8 pounds [facility] 08-19-24 Encounters Encounter Location Date Provider Diagnosis Chevy Scanlon MD [address] [place] [address] [place] [phone] 09/15/2024 Chevy Scanlon Febrile illness R50.9 Assessments Encounter Date Diagnosis (ICD Code) Assessment Notes Treatment Notes Treatment Clinical Notes Section Notes 09/15/2024 Febrile illness (ICD-10 - R50.9) due to the neck stiffness i feel she needs er evaluation and have sent her to the er / have spoken with a doctor there as i think she needs a spinal tap Plan Of Treatment Treatment Notes Assessment Notes Febrile illness due to the neck stif fness i feel she needs er evaluation and have sent her to the er / have spoken with a doctor there as i think she needs a spinal tap Next Appt Details Provider Name:Chevy otoole, 09/18/2024 07:30:00 AM, [address] [place] [address], Suite [facility], [place], [place], [phone], Provider Name:Chevy otoole, 07/10/2025 08:00:00 AM, [address] [place] [address], [place] [address], [place], [place], [phone], Provider Name:Chevy otoole, 07/17/2025 07:00:00 AM, [address] [place] [address], [address], [place], [place], [phone], Progress Notes * DARIA SALCEDOHDOB:1970 (54 yo F)Acc No.[id number]:09/15/2024 Progress Notes Patient:?JUSTIN SALCEDO Provider:?Chevy Scanlon MD :1970???Age:54 Y???Sex:Female D ate:09/15/2024 Address: [address], [id number] Subjective: * Chief Complaints: * ???1. Flu like symptoms, cov id neg snd flu neg. * HPI: ???Symptom(s):?patient is a 54 yo female here with compkaints of fatigue and body aches. started out with joints aching. neck is sore. since 6 days? . neck hurting since yesterday. no sore throat. had fever 4 days ago. fever to 101 last night. covid and flu negative. * ROS:?General/Constitutional:?Denies?Chills.?Admits?Fatigue.?Denies?Fever.?Admits?Headache.?ENT:?Denies?Sore throat.?Respiratory:?Denies?Cough.?Denies?Shortness of breath at rest.?Denies?Shortness of breath with exertion.?Gastrointestinal:?Denies?Diarrhea.?Admits?Nausea.? * Medical History:?Cologard negative. * Medications:?Taking traZODon e HCl 50 mg [...] evening. Orally Once a day , Taking traMADol HCl 50 MG Tablet 1 tablet as needed Orally twice a day , Taking valACYclovir HCl 1 GM Tablet 1 tablet Orally 3 times a day , Taking carBAMazepine 200 mg Tablet TAKE 1 TABLET BY MOUTH TWICE DAILY ORALLY TWICE PER DAY , Taking Ozempic (0.25 or 0.5 MG/DOSE) 2 MG/3ML Solution Pen-injector 0.5 mg Subcutaneous weekly , Not-Taking/PRN Plaquenil 200 MG Tablet as [...] as needed Orally Once a day , Medication List reviewed and reconciled with the patient * Allergies:?Ibuprofen: CANKER SORES, HYDROcodone: whole body itch. Objective: * Vitals:?Ht: 63, Wt: 213, BMI :37.73, BP:102/66, Wt-k.62. weight is down 8 pounds since 08-19-24. * Examination: ???General Examination: ?GENERAL APPEARANCE:?alert, well hydrated, who appears ill and holding her neck stiff.?SKIN:?warm and dry.?HEART:?regular rate and rhythm, no murmurs, rubs, gallops.?LUNGS:?no wheezes, rales, rhonchi, good air movement, clear to auscultation bilaterally.? Assessment: * Assessment: 1.?Febrile illness - R50.9 ( Primary)??? Plan: * Treatment: * * The named appointment provid er may or may not be the originator of this progress note, and it is not deemed complete until electronically signed by the appointment provider. Sign off status: Pending * Provider:?Chevy Scanlon MD Date:?0 09/15/2024 Generated for Connie bailey/Derrick/Kimberlee on:?09/15/2024 03:59 PM EDT History and Physical Notes * HPI (History of Present Illness) Category Sub-Category Detail Notes Category Not es Symptom(s) patient is a 54 yo female here with compkaints of fatigue and body aches. started out with joints aching. neck is sore. since 6 days . neck hurting since yesterday. no sore throat. had fever 4 days ago. fever to 101 last night. covid and flu negative Examination Category Sub-Category Detail Notes Category Not es General Examination GENERAL APPEARANCE: alert, w ell hydrated, who appears ill and holding her neck stiff HEART: regular rate and rhy thm, no murmurs, rubs, gallops LUNGS: no wheezes, rales, r honchi, good air movement, clear to auscultation bilaterally SKIN: warm and dry
[2024-09-15 16:37] LABS: Total Protein CSF 32.4 mg/dL (15-45)
[2024-09-15 16:50] LABS: CSF Appearance Clear, Colorless
[2024-09-15 16:51] LABS: CSF Tube # 2
--- NOTE | 2024-09-15 16:57 | P.HPHOSP_ITS ---
History of Present Illness Date of Service: 09/15/24 Chief Complaint: Fever, body ache 54 year female with HTN, diabetes who presents with not feeling well for about 5 days, she has been having joint aches including her spine and neck and intermittent fever up to 101. She denies YUEN, no n/v, no recent travels and no camping and no know tic exposure. She has bandemia but normal wbc, LP show no evidence of meningitis. Tic borne panel is pending. Given IV vanco and Ceftriaxone. Review of Systems 2 Review of Systems: Gen: + fever Resp: no sob, no cough CV: no chest, no THORNE, no leg edema GI: No n/v, no abd pain Neuro: No confusion, no photophobia MS: joint aches Yes all other systems are reviewed and are negative [facility] Medical History COVID-19 Diabetes Hypertension Family History Maternal Grandmother No problems noted. Social History Smoked in Last 30 Days: No Use of substances other than those prescribed or required for medical reasons: No Advance Directives: Yes Advance Directives Information Provided: No Advance Directives on File: No Do you have a plan to hurt others: No Plan Patient : No Current occupation: Right [employer] Meds Allergies Allergy/AdvReac Type Severity Reaction Status Date / Time ibuprofen [Ibuprofen] Allergy Unknown CANKER Verified 09/15/24 12:03 SORES oxycodone Allergy Unknown Unknown Verified 09/15/24 12:03 Home Medications ?Medication ?Instructions ?Recorded ?Confirmed ?Last Taken ?Type valsartan 80 1 tab PO DAILY 05/28/20 09/15/24 09/14/24 History mg-hydrochlorothiazide 12.5 mg tablet carbamazepine 200 mg tablet 200 mg PO BID 09/15/24 09/15/24 09/14/24 History levocetirizine 5 mg tablet 5 mg PO BEDTIME 09/15/24 09/15/24 09/14/24 History metformin 1,000 mg tablet 1,000 mg PO BID 09/15/24 09/15/24 09/14/24 History semaglutide 0.25 mg or 0.5 mg (2 0.5 mg subcut SA 09/15/24 09/15/24 09/13/24 History mg/3 mL) subcutaneous pen injector (Ozempic) trazodone 50 mg tablet 100 mg PO BEDTIME PRN insomnia 09/15/24 09/15/24 Unknown History Physical Exam 2 Vital Signs and Narrative: Vital Signs: Last Vital Signs Temp 98.2 F 09/15/24 12:01 Pulse 83 09/15/24 16:00 Resp 18 09/15/24 16:45 BP 123/70 09/15/24 16:00 Pulse Ox 96 09/15/24 16:00 O2 Del Method Room Air 09/15/24 16:00 BMI result Body Mass Index 39.0 Const: Other: General: AO X 3, no acute distress Resp: CTA bilateral CVS: S1,S2,RRR GI: +BS, NT, no distention Skin: No rash Neuro: motor grossly intact Psych: appropriate affect Results Labs 09/15/24 12:42 09/15/24 12:42 Labs: Laboratory Results - last 24 hr 09/15/24 09/15/24 09/15/24 12:42 14:53 16:00 MCV 86.1 MCH 29.8 MCHC 34.6 RDW 14.2 Plt Count 203 MPV 10.7 Immature Gran % (Auto) Cancelled Neut % (Auto) Cancelled Lymph % (Auto) Cancelled [place] % (Auto) Cancelled Eos % (Auto) Cancelled Baso % (Auto) Cancelled Lymph # (Auto) Cancelled [place] # (Auto) Cancelled Eos # (Auto) Cancelled Baso # (Auto) Cancelled Abs Immat Gran (auto) Cancelled Absolute Neuts (auto) Cancelled Absolute Nucleated RBC 0.000 Nucleated RBC % (auto) 0.0 Neutrophils % (Manual) 46 Band Neutrophils % 14 H Lymphocytes % (Manual) 27 Atypical Lymphs % (Man) 6 Monocytes % (Manual) 6 Eosinophils % (Manual) 1 Abs Neuts (Manual) 4.6 Lymphocytes # (Manual) 2.1 Atyp Lymphs # (Manual) 0.5 Monocytes # (Manual) 0.5 Eosinophils # (Manual) 0.1 Toxic Vacuolation PRESENT Platelet Estimate NORMAL Plt Morphology Comment NORMAL RBC Morphology NORMAL Anion Gap 16 Estim Creat Clear Calc 88.2 Estimated GFR > 60 Random Glucose 143 H Lactic Acid 2.2 H* Lactic Acid F/U @ 2Hr 1.9 Calcium 9.1 Total Bilirubin 0.6 AST 52 H ALT 55 H Alkaline Phosphatase 66 Total Protein 8.1 H Albumin 4.3 Beta HCG, Quant < 2 CSF Tube Number 2 CSF Appearance (b) Clear, Colorless CSF Total Protein 32.4 Influenza Type A (PCR) NEGATIVE Influenza Type B (PCR) NEGATIVE RSV RNA Qual (PCR) NEGATIVE SARS-CoV-2 RNA (RT-PCR) NEGATIVE Imaging Radiologist's Impressions: Impressions Chest X-Ray 09/15/24 12:01 IMPRESSION: No acute cardiopulmonary abnormality. Electronically signed by: Narciso Gong MD 09/15/2024 12:25 PM EDT RP Cervical Spine CT 09/15/24 12:10 IMPRESSION: No acute fracture or trauma-related listhesis. Fleischner guidelines were followed. Electronically signed by: Pepe Kim MD 09/15/2024 01:21 PM EDT RP Head CT 09/15/24 12:12 IMPRESSION: No acute intracranial hemorrhage or acute brain abnormality by CT. Electronically signed by: Pepe Kim MD 09/15/2024 12:55 PM EDT RP Assessment and Plan (1) Febrile illness: Status: Acute Plan 54 year female with HTN, diabetes who presents with not feeling well for about 5 days, she has been having joint aches including her spine and neck and intermittent fever up to 101. She denies YUEN, no n/v, no recent travels and no camping and no know tic exposure. She has bandemia but normal wbc, LP show no evidence of meningitis. Tic borne panel is pending. Given IV vanco and Ceftriaxone. Febrile illness, neg LP. DDx: viral ilness, tic borne illness given vanco and ceftriaxone in ED, add doxycyline meningoencephalitis panel pending HTN resume home meds dibates continue metformin sliding scale insulin diabetic diet dvt prophylaxis lovenox starting tomorrow Full code Quality Stroke Does the patient have a stroke diagnosis?: No VTE Prior VTE?: No VTE Risk Level:: Medical - moderate - high VTE Device Contraindication: N/A - Device Ordered VTE Drug Contraindication: N/A - Med Ordered
[2024-09-15] MEDS: Lactated Ringers 1,000 ML 100 ML IVCONT (18:10)
--- NOTE | 2024-09-15 18:41 | PHA.MEDREC ---
Addendum entered by Guerda Payton RPh 09/15/24 19:07: REVIEWED BY [facility] Original Note: Pharmacy Consult ? Medication Reconciliation Pharmacy has completed the medication reconciliation. Spoke with patient and she has a list on hand I was able to confirm the med rec with.
[2024-09-15 19:05] LABS: Appearance CSF CLEAR; CSF Tube # 1; Color CSF COLORLESS
[2024-09-15 19:06] LABS: CSF Monos 25 %; Lymphocytes CSF 75 %; Red Blood Cell CSF 12 MM*3; White Blood Cell CSF 3 MM*3
[2024-09-15 19:07] LABS: Appearance CSF CLEAR; CSF Monos 50 %; CSF Tube # 4; Color CSF COLORLESS; Lymphocytes CSF 50 %; Red Blood Cell CSF 5 MM*3; White Blood Cell CSF 2 MM*3
[2024-09-15 19:15] LABS: Appearance Urine Cloudy; Color Urine Dark Yellow; Glucose Urine UA Negative (Negative); Leukocyte Esterase Urine Large (3+) (Negative); Nitrite Urine Negative (Negative); UMIC TRIGGER UACC YES; Urine Blood Small (1+) (Negative); Urine Ketones 15 mg/dL (Negative); Urine Protein 30 (1+) mg/dL (Neg-Trace)
[2024-09-15 19:20] LABS: Bacteria Urine Trace (None Seen); RBC Urine >20 /HPF (0-2); Squamous Epithelial Cell Urine 0-2 /HPF (0-2); UACC Culture Trigger YES; WBC Urine >50 /HPF (0-5)
[2024-09-15 20:11] LABS: Glucose, Whole Blood 108 mg/dL (60-115)
[2024-09-15] MEDS: Loratadine 10 MG TABLET PO (20:13)
[2024-09-15] MEDS: carBAMazepine 200 MG TABLET PO (20:13)
[2024-09-15] MEDS: Doxycycline Hyclate 100 MG in 0.9 % Sodium Chloride 250 ML 166.67 MG IV (20:13)
[2024-09-15] MEDS: metFORMIN HCl 1,000 MG TABLET 1000 MG PO (20:13)
[2024-09-15] MEDS: traZODone HCL 100 MG TABLET PO (22:15)
[2024-09-16] VITALS (9 sets, daily range): BP systolic 99–129; BP diastolic 51–68; PULSE 77–92; RESP 16–74; TEMP 36.6–37.9; O2SAT 94–97; BMI 40.8
[2024-09-16] MEDS: Morphine Sulfate 4 MG/ML CARTRIDGE 2 MG IVPUSH ×2 (01:17→07:40)
[2024-09-16] MEDS: Lactated Ringers 1,000 ML 100 ML IVCONT ×3 (04:09→23:46)
[2024-09-16 06:00] LABS: Basophils Absolute Auto 0.1 X10*3/uL (0.0-0.2); Basophils Percent Auto 0.7 % (0-2); Eosinophils Absolute Auto 0.2 X10*3/uL (0.0-0.4); Eosinophils Percent Auto 2.5 % (0-4); Hematocrit 34.5 % (37.0-47.0); Hemoglobin 11.4 g/dl (12.0-16.0); Imm Gran Abs Auto 0.01 X10*3/uL (0.00-0.03); Imm Gran Pct Auto 0.1 % (0.0-0.4); Lymphocytes Absolute Auto 2.8 X10*3/uL (1.2-4.9); Lymphocytes Percent Auto 40.4 % (20-40); MANUAL DIFF FLAG SCAN; Mean Corpuscular Hemoglobin 29.3 pg (27.0-33.0); Mean Corpuscular Volume 88.7 fL (80.0-98.0); Monocytes Absolute Auto 0.6 X10*3/uL (0.1-1.2); Monocytes Percent Auto 8.5 % (2-11); Neutrophils Absolute Auto 3.3 x10*3/uL (2.0-8.3); Neutrophils Percent Auto 47.8 % (45-73); Platelet Count 187 X10*3/uL (160-400); Red Blood Count 3.89 X10*6/uL (4.20-5.50); Red Cell Distribution Width 14.4 % (11.0-16.0); SCAN SMEAR FLAG 1; White Blood Count 6.8 X10*3/uL (4.8-10.8)
[2024-09-16 06:16] LABS: Anion Gap 11 (12-20); Blood Urea Nitrogen 9 mg/dL (9-16); Calcium 7.9 mg/dL (8.4-10.2); Carbon Dioxide 25 mmol/L (22-29); Chloride 105 mmol/L (96-108); Creatinine Clr Calc Pharmacy 112.5; Estimated Glomerular Filt Rate > 60; Glucose Random 98 mg/dL (60-115); Potassium 3.2 mmol/L (3.3-5.1); Sodium 138 mmol/L (135-145)
[2024-09-16 06:19] LABS: SLIDE REVIEW VERIFIED
[2024-09-16 06:34] LABS: Glucose, Whole Blood 102 mg/dL (60-115)
[2024-09-16] MEDS: metFORMIN HCl 1,000 MG TABLET 1000 MG PO ×2 (07:29→21:59)
[2024-09-16] MEDS: carBAMazepine 200 MG TABLET PO ×2 (07:29→21:59)
[2024-09-16] MEDS: hydroCHLOROthiazide 12.5 MG TABLET PO (07:30)
[2024-09-16] MEDS: Doxycycline Hyclate 100 MG in 0.9 % Sodium Chloride 250 ML 166.67 MG IV ×2 (07:30→21:59)
[2024-09-16 08:33] LABS: Lyme Abs Screen <0.90 index
[2024-09-16] MEDS: Valsartan 80 MG TABLET PO (08:46)
--- NOTE | 2024-09-16 08:59 | PM.DS ---
DS: Providers Provider Date of Service: 09/16/24 <Wilfrido Montero MD - Last Filed: 09/16/24 09:05> Date of admission: 09/15/24 16:18 <Wilfrido Montero MD - Last Filed: 09/16/24 09:05> Date of discharge: 09/16/24 <Wilfrido Montero MD - Last Filed: 09/16/24 09:05> Primary care physician: Chevy Scanlon MD <Wilfrido Montero MD - Last Filed: 09/16/24 09:05> Consults: 09/16/24 07:37 Consult to Infectious Diseases Routine Consulting Provider: [facility] Reason for consultation: fever of unknown origin <Wilfrido Montero MD - Last Filed: 09/16/24 09:05> DS: Diagnosis Discharge Diagnosis (1) Febrile illness: Status: Acute <Wilfrido Montero MD - Last Filed: 09/16/24 09:05> DS: Summary Hospital Course Hospital Course: Chief Complaint: Fever, body ache 54 year female with HTN, diabetes who presents with not feeling well for about 5 days, she has been having joint aches including her spine and neck and intermittent fever up to 101. She denies YUEN, no n/v, no recent travels and no camping and no know tic exposure. She has bandemia but normal wbc, LP show no evidence of meningitis. Tic borne panel is pending. Given IV vanco and Ceftriaxone. Hospital course: Patient presented with generalized unwelness and fever, joint ache. There has not been fever in the hospital, Lumbar puncture was negative for meningitis. Tic borne illness panel also negative. Patient was given treated with ceftiaxone and Vancomycin while in the hospital. Preliminary urine and blood cultures have been negative. Pt was seen by ID who thought fever likely secondary to viral illness or possible tick-borne illness. Currently pt reports feeling well without fever, myalgias, or arthralgias. Vitals stable and WNL. Pt will be discharged on p.o. doxycycline 100 mg b.i.d. times 10 days per Infectious Disease. For uvc-nihdlgy-[id number] type 2 diabetes, pt should continue metformin and semaglutide. For HTN continue valsartan-hydrochlorothiazide For seasonal allergies continue levo cetirizine For insomnia continue trazodone p.r.n. For obesity class III, recommend decreased caloric intake. Continue semaglutide. <Wilfrido Montero MD - Last Filed: 09/16/24 09:05> Time Attestation Discharge Coordination Time (in mins): 35 <Wilfrido Montero MD - Last Filed: 09/16/24 09:05> Quality: Safe Use of Opioids Does Pt have an Active Cancer Diagnosis on the Problem List?: No <Wilfrido Montero MD - Last Filed: 09/16/24 09:05> Quality: Stroke Does the patient have a stroke diagnosis?: No <Wilfrido Montero MD - Last Filed: 09/16/24 09:05> Physical Exam Vital Signs: Vital Signs: Last Vital Signs Temp 100.3 F 09/16/24 08:47 Pulse 89 09/16/24 08:47 Resp 16 09/16/24 08:47 BP 129/68 09/16/24 08:47 Pulse Ox 96 09/16/24 08:47 O2 Del Method Room Air 09/16/24 08:47 BMI result Body Mass Index 40.8 <Wilfrido Montero MD - Last Filed: 09/16/24 09:05> General: AOx3, no acute distress Resp: CTA bilaterally CVS: S1, S2, RRR GI: +BS, NT, no distention Skin: Warm, dry Neuro: Cranial nerves II-XII grossly intact bilaterally. Motor grossly intact bilaterally Extremities: No edema Psych: Appropriate affect <LUCIA Gaitan - Last Filed: 09/17/24 12:29> DS: Data Data Completed and Pending Labs on day of discharge: Laboratory Results - last 24 hr 09/15/24 09/15/24 09/15/24 12:42 14:53 16:00 WBC 7.6 RBC 4.53 Hgb 13.5 Hct 39.0 MCV 86.1 MCH 29.8 MCHC 34.6 RDW 14.2 Plt Count 203 MPV 10.7 Immature Gran % (Auto) Cancelled Neut % (Auto) Cancelled Lymph % (Auto) Cancelled Reeves % (Auto) Cancelled Eos % (Auto) Cancelled Baso % (Auto) Cancelled Lymph # (Auto) Cancelled Reeves # (Auto) Cancelled Eos # (Auto) Cancelled Baso # (Auto) Cancelled Abs Immat Gran (auto) Cancelled Absolute Neuts (auto) Cancelled Absolute Nucleated RBC 0.000 Nucleated RBC % (auto) 0.0 Neutrophils % (Manual) 46 Band Neutrophils % 14 H Lymphocytes % (Manual) 27 Atypical Lymphs % (Man) 6 Monocytes % (Manual) 6 Eosinophils % (Manual) 1 Abs Neuts (Manual) 4.6 Lymphocytes # (Manual) 2.1 Atyp Lymphs # (Manual) 0.5 Monocytes # (Manual) 0.5 Eosinophils # (Manual) 0.1 Toxic Vacuolation PRESENT Platelet Estimate NORMAL Plt Morphology Comment NORMAL RBC Morphology NORMAL Smear Tech's Comments Sodium 137 Potassium 3.4 Chloride 98 Carbon Dioxide 26 Anion Gap 16 BUN 15 Creatinine 0.79 Estim Creat Clear Calc 88.2 Estimated GFR > 60 POC Glucose Random Glucose 143 H Lactic Acid 2.2 H* Lactic Acid F/U @ 2Hr 1.9 Calcium 9.1 Total Bilirubin 0.6 AST 52 H ALT 55 H Alkaline Phosphatase 66 Total Protein 8.1 H Albumin 4.3 Beta HCG, Quant < 2 Urine Color Urine Appearance Urine pH Ur Specific [place] Urine Protein Urine Glucose (UA) Urine Ketones Urine Blood Urine Nitrite Ur Leukocyte Esterase Urine RBC Urine WBC Ur Squamous Epith Cells Urine Bacteria Hyaline Casts CSF Tube Number 2 CSF Volume CSF Appearance CSF Color CSF WBC CSF RBC CSF Lymphocytes CSF Monocytes % CSF Appearance (b) CSF Total Protein Lyme Screen IgG & IgM <0.90 Influenza Type A (PCR) NEGATIVE Influenza Type B (PCR) NEGATIVE RSV RNA Qual (PCR) NEGATIVE SARS-CoV-2 RNA (RT-PCR) NEGATIVE 09/15/24 09/15/24 09/15/24 16:00 16:00 16:00 WBC RBC Hgb Hct MCV MCH MCHC RDW Plt Count MPV Immature Gran % (Auto) Neut % (Auto) Lymph % (Auto) Reeves % (Auto) Eos % (Auto) Baso % (Auto) Lymph # (Auto) Reeves # (Auto) Eos # (Auto) Baso # (Auto) Abs Immat Gran (auto) Absolute Neuts (auto) Absolute Nucleated RBC Nucleated RBC % (auto) Neutrophils % (Manual) Band Neutrophils % Lymphocytes % (Manual) Atypical Lymphs % (Man) Monocytes % (Manual) Eosinophils % (Manual) Abs Neuts (Manual) Lymphocytes # (Manual) Atyp Lymphs # (Manual) Monocytes # (Manual) Eosinophils # (Manual) Toxic Vacuolation Platelet Estimate Plt Morphology Comment RBC Morphology Smear Tech's Comments Sodium Potassium Chloride Carbon Dioxide Anion Gap BUN Creatinine Estim Creat Clear Calc Estimated GFR POC Glucose Random Glucose Lactic Acid Lactic Acid F/U @ 2Hr Calcium Total Bilirubin AST ALT Alkaline Phosphatase Total Protein Albumin Beta HCG, Quant Urine Color Urine Appearance Urine pH Ur Specific [place] Urine Protein Urine Glucose (UA) Urine Ketones Urine Blood Urine Nitrite Ur Leukocyte Esterase Urine RBC Urine WBC Ur Squamous Epith Cells Urine Bacteria Hyaline Casts CSF Tube Number 1 4 CSF Volume 1.0 2.0 CSF Appearance CLEAR CSF Color CSF WBC CSF RBC CSF Lymphocytes CSF Monocytes % CSF Appearance (b) CSF Total Protein Lyme Screen IgG & IgM Influenza Type A (PCR) Influenza Type B (PCR) RSV RNA Qual (PCR) SARS-CoV-2 RNA (RT-PCR) 09/15/24 09/15/24 09/15/24 16:00 16:00 16:00 WBC RBC Hgb Hct MCV MCH MCHC RDW Plt Count MPV Immature Gran % (Auto) Neut % (Auto) Lymph % (Auto) Reeves % (Auto) Eos % (Auto) Baso % (Auto) Lymph # (Auto) Reeves # (Auto) Eos # (Auto) Baso # (Auto) Abs Immat Gran (auto) Absolute Neuts (auto) Absolute Nucleated RBC Nucleated RBC % (auto) Neutrophils % (Manual) Band Neutrophils % Lymphocytes % (Manual) Atypical Lymphs % (Man) Monocytes % (Manual) Eosinophils % (Manual) Abs Neuts (Manual) Lymphocytes # (Manual) Atyp Lymphs # (Manual) Monocytes # (Manual) Eosinophils # (Manual) Toxic Vacuolation Platelet Estimate Plt Morphology Comment RBC Morphology Smear Tech's Comments Sodium Potassium Chloride Carbon Dioxide Anion Gap BUN Creatinine Estim Creat Clear Calc Estimated GFR POC Glucose Random Glucose Lactic Acid Lactic Acid F/U @ 2Hr Calcium Total Bilirubin AST ALT Alkaline Phosphatase Total Protein Albumin Beta HCG, Quant Urine Color Urine Appearance Urine pH Ur Specific [place] Urine Protein Urine Glucose (UA) Urine Ketones Urine Blood Urine Nitrite Ur Leukocyte Esterase Urine RBC Urine WBC Ur Squamous Epith Cells Urine Bacteria Hyaline Casts CSF Tube Number CSF Volume CSF Appearance CLEAR CSF Color COLORLESS COLORLESS CSF WBC 3 2 CSF RBC 12 CSF Lymphocytes CSF Monocytes % CSF Appearance (b) CSF Total Protein Lyme Screen IgG & IgM Influenza Type A (PCR) Influenza Type B (PCR) RSV RNA Qual (PCR) SARS-CoV-2 RNA (RT-PCR) 09/15/24 09/15/24 09/15/24 16:00 16:00 16:00 WBC RBC Hgb Hct MCV MCH MCHC RDW Plt Count MPV Immature Gran % (Auto) Neut % (Auto) Lymph % (Auto) Reeves % (Auto) Eos % (Auto) Baso % (Auto) Lymph # (Auto) Reeves # (Auto) Eos # (Auto) Baso # (Auto) Abs Immat Gran (auto) Absolute Neuts (auto) Absolute Nucleated RBC Nucleated RBC % (auto) Neutrophils % (Manual) Band Neutrophils % Lymphocytes % (Manual) Atypical Lymphs % (Man) Monocytes % (Manual) Eosinophils % (Manual) Abs Neuts (Manual) Lymphocytes # (Manual) Atyp Lymphs # (Manual) Monocytes # (Manual) Eosinophils # (Manual) Toxic Vacuolation Platelet Estimate Plt Morphology Comment RBC Morphology Smear Tech's Comments Sodium Potassium Chloride Carbon Dioxide Anion Gap BUN Creatinine Estim Creat Clear Calc Estimated GFR POC Glucose Random Glucose Lactic Acid Lactic Acid F/U @ 2Hr Calcium Total Bilirubin AST ALT Alkaline Phosphatase Total Protein Albumin Beta HCG, Quant Urine Color Urine Appearance Urine pH Ur Specific [place] Urine Protein Urine Glucose (UA) Urine Ketones Urine Blood Urine Nitrite Ur Leukocyte Esterase Urine RBC Urine WBC Ur Squamous Epith Cells Urine Bacteria Hyaline Casts CSF Tube Number CSF Volume CSF Appearance CSF Color CSF WBC CSF RBC 5 CSF Lymphocytes 75 50 CSF Monocytes % 25 50 CSF Appearance (b) Clear, Colorless CSF Total Protein 32.4 Lyme Screen IgG & IgM Influenza Type A (PCR) Influenza Type B (PCR) RSV RNA Qual (PCR) SARS-CoV-2 RNA (RT-PCR) 09/15/24 09/15/24 09/16/24 19:03 20:07 05:45 WBC 6.8 RBC 3.89 L Hgb 11.4 L Hct 34.5 L MCV 88.7 MCH 29.3 MCHC 33.0 RDW 14.4 Plt Count 187 MPV 10.0 Immature Gran % (Auto) 0.1 Neut % (Auto) 47.8 Lymph % (Auto) 40.4 H Reeves % (Auto) 8.5 Eos % (Auto) 2.5 Baso % (Auto) 0.7 Lymph # (Auto) 2.8 Reeves # (Auto) 0.6 Eos # (Auto) 0.2 Baso # (Auto) 0.1 Abs Immat Gran (auto) 0.01 Absolute Neuts (auto) 3.3 Absolute Nucleated RBC 0.000 Nucleated RBC % (auto) 0.0 Neutrophils % (Manual) Band Neutrophils % Lymphocytes % (Manual) Atypical Lymphs % (Man) Monocytes % (Manual) Eosinophils % (Manual) Abs Neuts (Manual) Lymphocytes # (Manual) Atyp Lymphs # (Manual) Monocytes # (Manual) Eosinophils # (Manual) Toxic Vacuolation Platelet Estimate Plt Morphology Comment RBC Morphology Smear Tech's Comments VERIFIED Sodium 138 Potassium 3.2 L Chloride 105 Carbon Dioxide 25 Anion Gap 11 L BUN 9 Creatinine 0.62 Estim Creat Clear Calc 112.5 Estimated GFR > 60 POC Glucose 108 Random Glucose 98 Lactic Acid Lactic Acid F/U @ 2Hr Calcium 7.9 L D Total Bilirubin AST ALT Alkaline Phosphatase Total Protein Albumin Beta HCG, Quant Urine Color Dark Yellow Urine Appearance Cloudy Urine pH 6.0 Ur Specific [place] 1.020 Urine Protein 30 (1+) H Urine Glucose (UA) Negative Urine Ketones 15 Urine Blood Small (1+) H Urine Nitrite Negative Ur Leukocyte Esterase Large (3+) H Urine RBC >20 H Urine WBC >50 H Ur Squamous Epith Cells 0-2 Urine Bacteria Trace Hyaline Casts 3-5 CSF Tube Number CSF Volume CSF Appearance CSF Color CSF WBC CSF RBC CSF Lymphocytes CSF Monocytes % CSF Appearance (b) CSF Total Protein Lyme Screen IgG & IgM Influenza Type A (PCR) Influenza Type B (PCR) RSV RNA Qual (PCR) SARS-CoV-2 RNA (RT-PCR) 09/16/24 06:31 WBC RBC Hgb Hct MCV MCH MCHC RDW Plt Count MPV Immature Gran % (Auto) Neut % (Auto) Lymph % (Auto) Reeves % (Auto) Eos % (Auto) Baso % (Auto) Lymph # (Auto) Reeves # (Auto) Eos # (Auto) Baso # (Auto) Abs Immat Gran (auto) Absolute Neuts (auto) Absolute Nucleated RBC Nucleated RBC % (auto) Neutrophils % (Manual) Band Neutrophils % Lymphocytes % (Manual) Atypical Lymphs % (Man) Monocytes % (Manual) Eosinophils % (Manual) Abs Neuts (Manual) Lymphocytes # (Manual) Atyp Lymphs # (Manual) Monocytes # (Manual) Eosinophils # (Manual) Toxic Vacuolation Platelet Estimate Plt Morphology Comment RBC Morphology Smear Tech's Comments Sodium Potassium Chloride Carbon Dioxide Anion Gap BUN Creatinine Estim Creat Clear Calc Estimated GFR POC Glucose 102 Random Glucose Lactic Acid Lactic Acid F/U @ 2Hr Calcium Total Bilirubin AST ALT Alkaline Phosphatase Total Protein Albumin Beta HCG, Quant Urine Color Urine Appearance Urine pH Ur Specific [place] Urine Protein Urine Glucose (UA) Urine Ketones Urine Blood Urine Nitrite Ur Leukocyte Esterase Urine RBC Urine WBC Ur Squamous Epith Cells Urine Bacteria Hyaline Casts CSF Tube Number CSF Volume CSF Appearance CSF Color CSF WBC CSF RBC CSF Lymphocytes CSF Monocytes % CSF Appearance (b) CSF Total Protein Lyme Screen IgG & IgM Influenza Type A (PCR) Influenza Type B (PCR) RSV RNA Qual (PCR) SARS-CoV-2 RNA (RT-PCR) Preliminary micro results at discharge 09/15/24 16:00 CSF Culture - Preliminary Cerebrospinal Fluid No growth to date. <Wilfrido Montero MD - Last Filed: 09/16/24 09:05> Discharge Plan Discharge Anticipated Discharge Date/Time: 09/16/24 09:03 <Wilfrido Montero MD - Last Filed: 09/16/24 09:05> Patient Disposition: Home, Self-Care <Wilfrido Montero MD - Last Filed: 09/16/24 09:05> Discharge Diagnosis: Acute febrile illness <Wilfrido Montero MD - Last Filed: 09/16/24 09:05> Acute febrile illness <LUCIA Gaitan - Last Filed: 09/17/24 12:29> Referrals: Chevy Scanlon MD [Primary Care Provider] - 1 Week <Wilfrido Montero MD - Last Filed: 09/16/24 09:05> Discharge Medications: New doxycycline monohydrate 100 mg capsule 100 mg PO BID Qty: 20 0RF Rx Instructions: Take one capsule twice a day. Take with food such as yogurt to prevent GI upset. Continued trazodone 50 mg tablet 100 mg PO BEDTIME PRN (Reason: insomnia) carbamazepine 200 mg tablet 200 mg PO BID metformin 1,000 mg tablet 1,000 mg PO BID levocetirizine 5 mg tablet 5 mg PO BEDTIME Ozempic 0.25 mg or 0.5 mg (2 mg/3 mL) pen injector 0.5 mg subcut SA valsartan-hydrochlorothiazide 80-12.5 mg tablet 1 tab PO DAILY <Wilfrido Montero MD - Last Filed: 09/16/24 09:05> Discharge Orders: Discharge Order (Routine); Ordered 09/17/24 Ordered By: Luis Burger <Wilfrido Montero MD - Last Filed: 09/16/24 09:05> Diet: Advance to usual diet <Wilfrido Montero MD - Last Filed: 09/16/24 09:05> Advance to usual diet <LUCIA Gaitan - Last Filed: 09/17/24 12:29> Activity on Discharge: As tolerated <Wilfrido Montero MD - Last Filed: 09/16/24 09:05> As tolerated <LUCIA Gaitan - Last Filed: 09/17/24 12:29> Stand Alone Forms: Patient Portal Discharge page, Work/School Release <Wilfrido Montero MD - Last Filed: 09/16/24 09:05> Print Language: Portuguese <Wilfrido Montero MD - Last Filed: 09/16/24 09:05> Care Plan Goals: recovery from fever, <Wilfrido Montero MD - Last Filed: 09/16/24 09:05> Health Concerns: fever, joint aches <Wilfrido Montero MD - Last Filed: 09/16/24 09:05> Plan of Treatment: take Doxycyline as recommended and follow up with your doctor in a week <Wilfrido Montero MD - Last Filed: 09/16/24 09:05> Assessment: see above <Wilfrido Montero MD - Last Filed: 09/16/24 09:05> Patient Instructions: Doxycycline (By mouth) <Wilfrido Montero MD - Last Filed: 09/16/24 09:05> Discharge Date/Time: 09/17/24 11:05 <Wilfrido Montero MD - Last Filed: 09/16/24 09:05>
--- NOTE | 2024-09-16 09:33 | MHC.CM.PN ---
EMR REVIEWED, CM MET W/PT AND WINSOME WEINSTEIN AT BEDSIDE, PT ABLE TO ANSWER QUESTIONS, PT REPORT SHE LIVES W/, MULTIPLE CHILDREN AND GCHILD, PT IS FULLY INDEP W/CARE AT BASELINE AND ONLY DME PT USES IS A GLUCOMETER TO MONITOR BS'S/ NOT INSULIN, NO HOME SERVICESM PT'S GOAL FOR DC IS HOME NO SERVICES. PT VERIFIES PCP IS ROSANA MULLER AND PT TO COMPLETE A HCP NAMING HER JS SALCEDO [phone] HER [facility] AND SON CHRISTOPHER SALCEDO [phone] HER ALTERNATE.
[2024-09-16 10:45] LABS: Cryptococcus neoformans/gattii Not Detected (Not Detect.); Enterovirus Not Detected (Not Detect.); Escherichia coli K1 Not Detected (Not Detect.); Haemophilus influenzae Not Detected (Not Detect.); Herpes simplex virus 1 Not Detected (Not Detect.); Herpes simplex virus 2 Not Detected (Not Detect.); Human herpesvirus 6 Not Detected (Not Detect.); Human parechovirus Not Detected (Not Detect.); Listeria monocytogenes Not Detected (Not Detect.); Neisseria meningitidis Not Detected (Not Detect.); Streptococcus agalactiae Not Detected (Not Detect.); Streptococcus pneumoniae Not Detected (Not Detect.); Varicella zoster virus Not Detected (Not Detect.)
[2024-09-16 11:19] LABS: Glucose, Whole Blood 126 mg/dL (60-115)
[2024-09-16] MEDS: Acetaminophen 325 MG TABLET 650 MG PO (13:45)
[2024-09-16] MEDS: cefTRIAXone sodium 1 GM VIAL IVPUSH (16:04)
[2024-09-16] MEDS: 0.9 % Sodium Chloride Flush 3 ML SYRINGE IVFLUSH ×2 (16:04→22:04)
[2024-09-16] MEDS: ondansetron HCL 4 MG/2 ML VIAL IVPUSH (16:04)
[2024-09-16 16:21] LABS: Glucose, Whole Blood 96 mg/dL (60-115)
[2024-09-16 21:44] LABS: Lyme (B. burgdorferi) PCR NOT DETECTED (NOT DETECTED)
[2024-09-16 21:53] LABS: A. Phagocytphilium DNA,RT-PCR NOT DETECTED (NOT DETECTED); Babesia Microti DNA, RT-PCR NOT DETECTED (NOT DETECTED); Borrelia Miyamotoi,DNA RT-PCR NOT DETECTED (NOT DETECTED); E.Chaffeensis DNA RT-PCR NOT DETECTED (NOT DETECTED); Lyme(Borrelia ssp)DNA RT-PCR NOT DETECTED (NOT DETECTED)
[2024-09-16] MEDS: traZODone HCL 50 MG TABLET PO (21:59)
[2024-09-16] MEDS: Loratadine 10 MG TABLET PO (21:59)
--- NOTE | 2024-09-16 22:00 | W.PM.IDCN ---
History of Present Illness Data of Consult Service Date: 09/16/24 Requesting physician: Wilfrido Montero Primary Care Provider: Chevy Scanlon MD [facility] Reason for consult: fever of unknown origin She presents with temperature 101 for five days. She had gone to [facility] for baby democrat one and a half weeks ago but no one ill there. She has no tick bites. She has no foreign travel. She has two healthy dogs. Review of Systems Review of Systems: Yes all other systems are reviewed and are negative [facility] Past Medical History Medical History COVID-19 Diabetes Hypertension Family History Family History Maternal Grandmother No problems noted. 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 Allergies Allergy/AdvReac Type Severity Reaction Status Date / Time ibuprofen [Ibuprofen] Allergy Unknown CANKER Verified 09/15/24 12:03 SORES oxycodone Allergy Unknown Unknown Verified 09/15/24 12:03 Active Medications: Current Medications Acetaminophen (Acetaminophen 325 Mg Tablet) 650 mg PO Q6H PRN PRN Reason: Pain, Mild 1-3,fever,headache Last Admin: 09/16/24 13:45 Dose: 650 mg Calcium Carbonate (Calcium Carbonate 750 Mg Tab.Chew) 750 mg PO Q4H PRN PRN Reason: Heartburn Carbamazepine (Carbamazepine 200 Mg Tablet) 200 mg PO BID [facility] Last Admin: 09/16/24 07:29 Dose: 200 mg Ceftriaxone Sodium (Ceftriaxone Sodium 1 Gm Vial) 1 gm IVPUSH Q24H [facility] Last Admin: 09/16/24 16:04 Dose: 1 gm Dextrose (Dextrose 50 % 25 Gm/50 Ml Syringe) 25 gm IVPUSH Q15M PRN; Protocol PRN Reason: per Hypoglycemia Standing Ord. Glucose (Glucose Gel 15 Gm Gel..Gram.) 15 gm PO Q15M PRN; Protocol PRN Reason: per Hypoglycemia Standing Ord. Hydrochlorothiazide (Hydrochlorothiazide 12.5 Mg Tablet) 12.5 mg PO DAILY [facility] Last Admin: 09/16/24 07:30 Dose: 12.5 mg Lactated Ringer's (Lr) 1,000 mls @ 100 mls/hr IVCONT .Q10H [facility] Last Admin: 09/16/24 13:45 Dose: 100 mls/hr Doxycycline Hyclate 100 mg/ (Sodium Chloride) 250 mls @ 166.67 mls/hr IV Q12H [facility] Last Infusion: 09/16/24 09:18 Dose: Infused Insulin Human Lispro (Insulin Lispro 100 Unit/Ml 3 Ml Vial) 0 unit SUBCUT QIDACHS [facility]; Protocol Last Admin: 09/16/24 16:25 Dose: Not Given Loratadine (Loratadine 10 Mg Tablet) 10 mg PO BEDTIME [facility] Last Admin: 09/15/24 20:13 Dose: 10 mg Magnesium Hydroxide (Milk Of Magnesia 30 Ml Oral.Susp) 30 ml PO DAILY PRN PRN Reason: Constipation Melatonin (Melatonin 3 Mg Tablet) 6 mg PO BEDTIME PRN PRN Reason: Insomnia Metformin HCl (Metformin Hcl 1,000 Mg Tablet) 1,000 mg PO BID [facility] Last Admin: 09/16/24 07:29 Dose: 1,000 mg Morphine Sulfate (Morphine Sulfate 4 Mg/Ml Cartridge) 2 mg IVPUSH Q6H PRN; Protocol PRN Reason: Pain, Severe (Pain Scale 7-10) Last Admin: 09/16/24 07:40 Dose: 2 mg Non-Formulary Medication (Semaglutide [Ozempic]) 0.5 mg SUBCUT [facility] Ondansetron HCl (Ondansetron Hcl 4 Mg/2 Ml Vial) 4 mg IVPUSH Q8H PRN PRN Reason: Nausea and Vomiting Last Admin: 09/16/24 16:04 Dose: 4 mg Polyethylene Glycol (Polyethylene Glycol 3350 17 Gm Powd.Pack) 17 gm PO DAILY PRN PRN Reason: Constipation Sodium Chloride (0.9 % Sodium Chloride Flush 3 Ml Syringe) 3 ml IVFLUSH QSHIFT [facility] Last Admin: 09/16/24 16:04 Dose: 3 ml Trazodone HCl (Trazodone Hcl 50 Mg Tablet) 50 mg PO BEDTIME PRN PRN Reason: insomnia Valsartan (Valsartan 80 Mg Tablet) 80 mg PO DAILY [facility] Last Admin: 09/16/24 08:46 Dose: 80 mg Home Medications ?Medication ?Instructions ?Recorded ?Confirmed ?Last Taken ?Type valsartan 80 1 tab PO DAILY 05/28/20 09/15/24 09/14/24 History mg-hydrochlorothiazide 12.5 mg tablet carbamazepine 200 mg tablet 200 mg PO BID 09/15/24 09/15/24 09/14/24 History levocetirizine 5 mg tablet 5 mg PO BEDTIME 09/15/24 09/15/24 09/14/24 History metformin 1,000 mg tablet 1,000 mg PO BID 09/15/24 09/15/24 09/14/24 History semaglutide 0.25 mg or 0.5 mg (2 0.5 mg subcut SA 09/15/24 09/15/24 09/13/24 History mg/3 mL) subcutaneous pen injector (Ozempic) trazodone 50 mg tablet 100 mg PO BEDTIME PRN insomnia 09/15/24 09/15/24 Unknown History Physical Exam Vital Signs: Vital Signs: Last Vital Signs Temp 98.5 F 09/16/24 19:57 Pulse 77 09/16/24 19:57 Resp 18 09/16/24 19:57 BP 107/55 L 09/16/24 19:57 Pulse Ox 94 09/16/24 19:57 O2 Del Method Room Air 09/16/24 19:57 BMI result Body Mass Index 40.8 Cardio: Other: 2/6 PERRY Results Labs 09/16/24 05:45 09/16/24 05:45 Labs: Short CBC 09/16/24 Range/Units 05:45 WBC 6.8 (4.8-10.8) X10*3/uL Hgb 11.4 L (12.0-16.0) g/dl Hct 34.5 L (37.0-47.0) % Plt Count 187 (160-400) X10*3/uL BMP 09/16/24 05:45 Sodium 138 Potassium 3.2 L Chloride 105 Carbon Dioxide 25 BUN 9 Creatinine 0.62 Calcium 7.9 L D Microbiology Microbiology Results: Microbiology 09/15/24 12:42 Blood - Venous Blood Culture - Preliminary No growth after 24 hours. 09/15/24 12:42 Blood - Venous Blood Culture - Preliminary No growth after 24 hours. 09/15/24 Unknown Urine clean catch - Clean Catch Midstream Urine Culture - Preliminary No growth to date. 09/15/24 16:00 Cerebrospinal Fluid Gram Stain - Final 09/15/24 16:00 Cerebrospinal Fluid Fluid Description - Final 09/15/24 16:00 Cerebrospinal Fluid CSF Culture - Preliminary No growth to date. Assessment and Plan (1) Febrile illness: Status: Acute (2) Bandemia: Status: Acute (3) Fever: Status: Acute Plan There is probable viral illness or tick borne illness. She has a heart murmur now and past cardiac workup Consider TTE. Po Doxycycline 100 mg bid 10 days. Get tick panel check Lyme,babesia and ehrlichiosis.
[2024-09-16 22:18] LABS: Glucose, Whole Blood 140 mg/dL (60-115)
[2024-09-17 03:19] VITALS: BP 122/59; PULSE 79; RESP 16; TEMP 36.2; O2SAT 94
[2024-09-17 06:51] VITALS: BP 133/70; PULSE 82; RESP 16; TEMP 36.6; O2SAT 93
[2024-09-17 07:06] LABS: Glucose, Whole Blood 95 mg/dL (60-115)
[2024-09-17] MEDS: hydroCHLOROthiazide 12.5 MG TABLET PO (07:54)
[2024-09-17] MEDS: metFORMIN HCl 1,000 MG TABLET 1000 MG PO (07:54)
[2024-09-17] MEDS: Valsartan 80 MG TABLET PO (07:55)
[2024-09-17] MEDS: Doxycycline Hyclate 100 MG in 0.9 % Sodium Chloride 250 ML 166.67 MG IV (07:55)
[2024-09-17] MEDS: carBAMazepine 200 MG TABLET PO (07:55)
[2024-09-17] MEDS: 0.9 % Sodium Chloride Flush 3 ML SYRINGE IVFLUSH (07:56)
[2024-09-17] MEDS: Acetaminophen 325 MG TABLET 650 MG PO (08:01)
[2024-09-17] MEDS: Doxycycline Monohydrate 100 MG CAPSULE PO (09:19)
--- NOTE | 2024-09-17 10:57 | MHC.CM.PN ---
PT DCD HOME SELF CARE
[2024-09-18 21:09] LABS: Lyme IgG CSF Immunoblot NO BANDS DETECTED; Lyme IgM CSF Immunoblot NO BANDS DETECTED
== END 2024-09-17 11:05 | disposition home or self-care (01) | DRG 866 ==
LOC: HO.ED 14:33 → HO.EDOVER 17:04 → HO.S3 09-16 07:37
PROVIDERS: Physician Assistant; Admitting Provider Internal Medicine; Emergency Provider Emergency Medicine Emergency Medical Services; PCP Internal Medicine; Visit Provider Student in an Organized Health Care Education/Training Program
DX: B34.9 Viral infection, unspecified (principal); Z68.41 Body mass index [BMI] 40.0-44.9, adult; Z20.822 Contact with and (suspected) exposure to COVID-19; E66.813 Obesity, class 3; Z71.3 Dietary counseling and surveillance; J30.2 Other seasonal allergic rhinitis; G47.00 Insomnia, unspecified; I10 Essential (primary) hypertension; E11.9 Type 2 diabetes mellitus without complications; Z79.84 Long term (current) use of oral hypoglycemic drugs; Z79.899 Other long term (current) drug therapy
CPT/HCPCS: 0241U; 36415; 70450; 71045; 72125; 80048; 80053; 81001; 82947; 83605; 84157; 84702; 85007; 85025; 85027; 86617; 86618; 87015; 87040; 87070; 87086; 87205; 87468; 87469; 87476; 87478; 87483; 87484; 87798; 89051; 99221; 99285; J0696; J1171; J1271; J2270; J2405; J3370; J7120

== ENCOUNTER → 2024-09-15 12:01 | Outpatient (BNV) | payer BC, SELFPAY | PROVIDERS: PCP Internal Medicine; Visit Provider Radiology Diagnostic Radiology | DX: M54.2 Cervicalgia (principal); R93.0 Abnormal findings on diagnostic imaging of skull and head, not elsewhere classified; R05.9 Cough, unspecified | CPT/HCPCS: 70450; 71045; 72125 ==

== ENCOUNTER → 2024-09-15 16:18 | Outpatient (BNV) | payer OTHER, SELFPAY | PROVIDERS: Admitting Provider Internal Medicine; Emergency Provider Emergency Medicine Emergency Medical Services; PCP Internal Medicine; Visit Provider Internal Medicine | DX: R50.9 Fever, unspecified (principal) | CPT/HCPCS: 99223 ==

== ENCOUNTER → 2024-09-15 16:18 | Outpatient (BNV) | payer OTHER, SELFPAY | PROVIDERS: Admitting Provider Internal Medicine; Emergency Provider Emergency Medicine Emergency Medical Services; PCP Internal Medicine; Visit Provider Internal Medicine | DX: R50.9 Fever, unspecified (principal); D72.825 Bandemia | CPT/HCPCS: 99222 ==

== ENCOUNTER 2024-11-27 15:33 | Outpatient (REF) | payer SELFPAY ==
--- OUTSIDE RECORDS SUMMARY | 2024-11-25 09:10 | XMS_ITS ---
Author Organization Chevy Scanlon MD Address [address] [place] [phone] Care Team Providers Care Pusher Runner Name Role Phone Chevy Scanlon Primary Care Provider REASON FOR VISIT med issue Medications Medication SIG (Take, Route, Frequency, Duration) Notes Start Date End Date Status Morphine Sulfate 30 MG 1 tablet as needed Orally twice a day for 1 days Partial Fill upon Patient Request 11/25/2024 Active Encounters Encounter Location Date Provider Diagnosis Chevy Scnalon MD [address] [place] [address] [address] [place], [place] [phone] 11/25/2024 Chevy Scanlon Plan Of Treatment Medication Medication Name Sig Start Date Stop Date Notes Morphine Sulfate 30 MG 1 tablet as neede d Orally twice a day for 1 days 11/25/2024 Partial Fill upon Patient Request Next Appt Details Provider Name:Chevy otoole, 12/11/2024 03:00:00 PM, [address] [place] [address], [address] [place] [address], [phone], Provider Name:Chevy otoole, 07/10/2025 08:00:00 AM, [address] [place] [address], [address], [phone], Provider Name:Chevy otoole, 07/17/2025 07:00:00 AM, [address] [place] [address], [address], [phone], Progress Notes * BRET SALCEDOOB:1970 (54 yo F)Acc No.[id number]:11/25/2024 Patient: JUSTIN BENNETT :1970 A ge:54 Y S ex:Female Address: [address], [place], [address] * Refills Continue Morphine Sulfate Tablet, 30 MG, Orally, 2 Tablet, 1 tablet as needed, twice a day, 1 days, Refills=0 * true * Date: Generated for Connie bailey/Derrick/Markysmitting on: 0 11/27/2024 04:06 PM EDT
[2024-11-27 15:48] LABS: Appearance Urine Cloudy; Glucose Urine UA Negative (Negative); PH 6.0 (5.0-9.0); Specific Gravity - Urine 1.025 (1.005-1.025); UMIC TRIGGER UACC YES
[2024-11-27 15:53] LABS: UACC Culture Trigger YES
== END 2024-11-27 15:34 | disposition home or self-care (01) ==
LOC: HO.LNP 15:33
PROVIDERS: Visit Provider Internal Medicine
DX: R31.9 Hematuria, unspecified (principal)
CPT/HCPCS: 81001; 87086; 87088; 87186